=== PATIENT | male | born 1945 | race Caucasian/White ===

== ENCOUNTER → 2017-12-24 12:38 | Outpatient (CLI) | payer MEDICARE, SELFPAY | PROVIDERS: Referring Provider Internal Medicine Cardiovascular Disease; Visit Provider Internal Medicine Cardiovascular Disease | DX: R00.2 Palpitations (principal); I49.49 Other premature depolarization; I49.1 Atrial premature depolarization; I49.3 Ventricular premature depolarization; R94.31 Abnormal electrocardiogram [ECG] [EKG] | CPT/HCPCS: 93225; 93226 ==

== ENCOUNTER → 2018-04-28 07:00 | Outpatient (CLI) | payer MEDICARE, SELFPAY ==
[2018-04-28 10:48] LABS: ALB/GLOB Ratio 1.2 RATIO (0.9-2.4); AST(SGOT) 28 U/L (15-37); Alanine Aminotransfer ALT/SGPT 34 U/L (16-61); Albumin, Serum 4.2 g/dL (3.2-5.0); Alkaline Phosphatase 71 U/L (45-117); Anion Gap 6 (5-15); BUN 16 mg/dL (7-18); BUN/Creat Ratio 13.1 RATIO (10-20); Calcium,Total 9.1 mg/dL (8.5-10.1); Chloride 105 mmol/L (98-107); Cholesterol 145 mg/dL (200); Creatinine, Serum 1.22 mg/dL (0.70-1.30); EST Glomerular Filtration Rate 62 mL/min (>60); Est Glom Filt Rate - Afr Amer 75 mL/min (>60); Globulin 3.5 g/dL (2.2-4.2); Glucose 85 mg/dL (74-106); High Density Lipoprotein 47 mg/dL; PSA,Total- Diagnostic 3.03 ng/mL (0.0-4.0); Potassium 4.5 mmol/L (3.5-5.1); Protein, Total 7.7 g/dL (6.4-8.2); Sodium Level 141 mmol/L (136-145); Triglycerides 98 mg/dL; Very Low Density Lipoprotein 20 mg/dL (5-40)
== END ==
PROVIDERS: Family Provider Family Medicine; PCP Family Medicine; Referring Provider Family Medicine; Visit Provider Family Medicine
DX: E78.5 Hyperlipidemia, unspecified (principal); R97.20 Elevated prostate specific antigen [PSA]
CPT/HCPCS: 36415; 80053; 80061; 84153

== ENCOUNTER → 2018-12-10 09:13 | Outpatient (CLI) | payer MEDICARE, SELFPAY ==
[2018-06-14 09:39] VITALS: BMI 27.5
--- NOTE | 2018-12-10 08:45 | LES_PTH ---
PATIENT: MAO VAZQUEZ Jr. LOC: [facility] U#:[id number] AGE/SX: 79/M ROOM: RE12/10/[address]: Dr. Juan Nesbitt MD : 1945 BED: DIS: SPEC #: [id number] RECD: 12/10/18 09:58 STATUS: ROSANA KAYLYN #: [id number] HILARIA: 12/10/18 08:[address]: Juan Nesbitt DEPT: SURGICAL PATHOLOGY RECD BY: Leoncio Ramos ENTERED: 12/10/18 11:23 SP TYPE: Lesion OTHR DR: Dr. Eliud Gray MD Tissues: Skin of nose, NOS Procedures: Surgery Specimen Level IV HEADER OPERATION: Shave biopsy nose, left PRE-OP DIAGNOSIS: ? Basal cell carcinoma TISSUE SUBMITTED: Suspicious skin lesion MICROSCOPIC DIAGNOSIS Skin lesion of nose, shave biopsy: Basal cell carcinoma. See comment. AM:edward 12/13/18 COMMENT The lesion measures approximately 2 millimeters in greatest dimension and extends to the deep margin of excision. Case has been reviewed in consultation with Dr. Hyman who concurs with the above diagnosis. IDC:SJ MICROSCOPIC DESCRIPTION Slides are reviewed. GROSS DESCRIPTION Received in fixative is one container labeled with the patient's name and designated left nose. The specimen consists of a shave biopsy of jade-white skin measuring 0.6 x 0.4 x 0.1 cm. The specimen is inked and submitted entirely in one cassette. It will be bisected at the time of embedding. / SJ:rg 12/10/18 TC:0 CPT: 35650
== END ==
PROVIDERS: Family Provider Family Medicine; PCP Family Medicine; Visit Provider Family Medicine
DX: C44.311 Basal cell carcinoma of skin of nose (principal)
CPT/HCPCS: 88305

== ENCOUNTER → 2019-05-06 | Outpatient (CLI) | payer MEDICARE, SELFPAY ==
[2018-06-14 09:39] VITALS: BMI 27.5
[2019-05-06 13:12] LABS: ALB/GLOB Ratio 1.1 RATIO (0.9-2.4); AST(SGOT) 27 U/L (15-37); Alanine Aminotransfer ALT/SGPT 33 U/L (16-61); Albumin, Serum 3.9 g/dL (3.2-5.0); Alkaline Phosphatase 83 U/L (45-117); Anion Gap 5 (5-15); BUN 18 mg/dL (7-18); BUN/Creat Ratio 16.5 RATIO (10-20); Calcium,Total 8.7 mg/dL (8.5-10.1); Chloride 104 mmol/L (98-107); Cholesterol 145 mg/dL (200); Creatinine, Serum 1.09 mg/dL (0.70-1.30); EST Glomerular Filtration Rate 71 mL/min (>60); Est Glom Filt Rate - Afr Amer 85 mL/min (>60); Globulin 3.5 g/dL (2.2-4.2); Glucose 80 mg/dL (74-106); High Density Lipoprotein 39 mg/dL; PSA,Total - Annual Screen 3.97 ng/mL (0.00-4.00); Potassium 3.9 mmol/L (3.5-5.1); Protein, Total 7.4 g/dL (6.4-8.2); Sodium Level 139 mmol/L (136-145); Triglycerides 110 mg/dL; Very Low Density Lipoprotein 22 mg/dL (5-40)
== END | disposition home or self-care (01) ==
LOC: MFPLAB 11:00
PROVIDERS: PCP Family Medicine; Referring Provider Family Medicine; Visit Provider Family Medicine
DX: E78.5 Hyperlipidemia, unspecified (principal); R68.82 Decreased libido; R97.20 Elevated prostate specific antigen [PSA]; Z12.5 Encounter for screening for malignant neoplasm of prostate
CPT/HCPCS: 36415; 80053; 80061; 84153; 84403; G0103

== ENCOUNTER → 2020-05-09 08:01 | Outpatient (CLI) | payer MEDICARE, SELFPAY ==
[2019-11-17 10:04] VITALS: BMI 26.9
[2020-05-09 10:25] LABS: Erythrocyte Sedimentation Rate 2 mm/hr (0-20)
[2020-05-09 10:38] LABS: Vitamin D,25 Hydroxy 61.6 ng/mL
[2020-05-09 10:56] LABS: ALB/GLOB Ratio 1.2 RATIO (0.9-2.4); AST(SGOT) 26 U/L (15-37); Alanine Aminotransfer ALT/SGPT 30 U/L (16-61); Alkaline Phosphatase 75 U/L (45-117); Anion Gap 7 (5-15); BUN 21 mg/dL (7-18); BUN/Creat Ratio 17.8 RATIO (10-20); CRP < 2.90 mg/L (0.0-3.0); Calcium,Total 9.1 mg/dL (8.5-10.1); Chloride 106 mmol/L (98-107); Cholesterol 164 mg/dL (200); Creatinine, Serum 1.18 mg/dL (0.70-1.30); EST Glomerular Filtration Rate 64 mL/min (>60); Est Glom Filt Rate - Afr Amer 78 mL/min (>60); Globulin 3.4 g/dL (2.2-4.2); Glucose 85 mg/dL (74-106); High Density Lipoprotein 51 mg/dL; PSA,Total- Diagnostic 4.02 ng/mL (0.0-4.0); Potassium 4.5 mmol/L (3.5-5.1); Protein, Total 7.4 g/dL (6.4-8.2); Rheumatoid Factor < 10.0 IU/mL (<15); Sodium Level 140 mmol/L (136-145); Thyroid Stim Hormone (TSH) 0.72 uIU/mL (0.358-3.74); Triglycerides 87 mg/dL; Uric Acid 6.6 mg/dL (3.5-7.2); Very Low Density Lipoprotein 17 mg/dL (5-40)
[2020-05-10 15:33] LABS: ANTINUCLEAR ANTIBODIES DIRECT Negative (Negative)
== END ==
PROVIDERS: PCP Family Medicine; Referring Provider Family Medicine; Visit Provider Family Medicine
DX: E78.5 Hyperlipidemia, unspecified (principal); M19.90 Unspecified osteoarthritis, unspecified site; R97.20 Elevated prostate specific antigen [PSA]
CPT/HCPCS: 36415; 80053; 80061; 82306; 84153; 84443; 84550; 85652; 86038; 86140; 86431

== ENCOUNTER → 2020-11-08 08:14 | Outpatient (CLI) | payer MEDICARE, SELFPAY ==
[2020-11-09 12:36] LABS: PSA, Free 1.02 ng/mL; PSA, Free % 26.2 % (.); PSA, Total Ultrasensitive 3.9 ng/mL (0.0-4.0)
== END ==
PROVIDERS: PCP Family Medicine; Referring Provider Family Medicine; Visit Provider Family Medicine
DX: R97.20 Elevated prostate specific antigen [PSA] (principal)
CPT/HCPCS: 36415; 84153; 84154

== ENCOUNTER → 2021-01-02 17:47 | Outpatient (CLI) | payer MEDICARE, SELFPAY ==
[2021-01-02 18:24] LABS: Color, Urine Yellow (Yellow); Glucose, Dipstick Normal (Normal); Ketone-Dipstick Negative (Negative); Leukocyte Esterase-Dipstick 500 /ul (Negative); Nitrite-Dipstick Negative (Negative); Occult Blood-Urine 10 /ul (Negative); Protein-Dipstick 15 mg/dl (Negative); Urine Bilirubin Dipstick Negative (Negative); Urine Clarity Sl. Cloudy (Clear); Urine Urobilinogen Normal (Normal)
== END ==
PROVIDERS: PCP Family Medicine; Visit Provider Family Medicine
DX: R31.9 Hematuria, unspecified (principal)
CPT/HCPCS: 81002; 87077; 87086; 87088; 87186

== ENCOUNTER 2021-05-09 09:05 | Outpatient (CLI) | payer MEDICARE, SELFPAY ==
[2021-05-09 10:46] LABS: Anion Gap 6 (5-15); BUN 16 mg/dL (7-18); BUN/Creat Ratio 15.1 RATIO (10-20); Calcium,Total 9.3 mg/dL (8.5-10.1); Chloride 105 mmol/L (98-107); Cholesterol 147 mg/dL (200); Creatinine, Serum 1.06 mg/dL (0.70-1.30); EST Glomerular Filtration Rate 72 mL/min (>60); Est Glom Filt Rate - Afr Amer 88 mL/min (>60); Glucose 96 mg/dL (74-106); High Density Lipoprotein 41 mg/dL; Potassium 4.1 mmol/L (3.5-5.1); Sodium Level 140 mmol/L (136-145); Triglycerides 96 mg/dL; Very Low Density Lipoprotein 19 mg/dL (5-40)
[2021-05-11 10:32] LABS: PSA, Free 1.89 ng/mL; PSA, Free % 32.6 % (.); PSA, Total 5.8 ng/mL (0.0-4.0)
== END 2021-05-09 23:59 | disposition home or self-care (01) ==
PROVIDERS: PCP Family Medicine; Referring Provider Family Medicine; Visit Provider Family Medicine
DX: R97.20 Elevated prostate specific antigen [PSA] (principal); E78.5 Hyperlipidemia, unspecified
CPT/HCPCS: 36415; 80048; 80061; 84153

== ENCOUNTER → 2021-08-09 | Outpatient (CLI) | payer MEDICARE, SELFPAY ==
[2021-08-11 15:18] LABS: PSA, Free 1.21 ng/mL; PSA, Free % 31.8 % (.); PSA, Total Ultrasensitive 3.8 ng/mL (0.0-4.0)
== END | disposition home or self-care (01) ==
LOC: MFPLAB 08:04
PROVIDERS: PCP Family Medicine; Visit Provider Family Medicine
DX: R97.20 Elevated prostate specific antigen [PSA] (principal)
CPT/HCPCS: 36415; 84153; 84154

== ENCOUNTER → 2022-05-22 | Outpatient (CLI) | payer MEDICARE, SELFPAY ==
[2022-05-22 12:44] LABS: ALB/GLOB Ratio 1.2 RATIO (0.9-2.4); AST(SGOT) 26 U/L (15-37); Alanine Aminotransfer ALT/SGPT 28 U/L (16-61); Albumin, Serum 3.9 g/dL (3.2-5.0); Alkaline Phosphatase 77 U/L (45-117); Anion Gap 2 (5-15); BUN 14 mg/dL (7-18); BUN/Creat Ratio 14.5 RATIO (10-20); Calcium,Total 9.1 mg/dL (8.5-10.1); Chloride 103 mmol/L (98-107); Cholesterol 143 mg/dL (200); Creatinine, Serum 0.96 mg/dL (0.70-1.30); EST Glomerular Filtration Rate 81 mL/min (>60); Est Glom Filt Rate - Afr Amer 98 mL/min (>60); Globulin 3.3 g/dL (2.2-4.2); Glucose 87 mg/dL (74-106); High Density Lipoprotein 41 mg/dL; PSA,Total- Diagnostic 4.53 ng/mL (0.0-4.0); Potassium 3.9 mmol/L (3.5-5.1); Protein, Total 7.2 g/dL (6.4-8.2); Sodium Level 136 mmol/L (136-145); Triglycerides 97 mg/dL; Very Low Density Lipoprotein 19 mg/dL (5-40)
== END | disposition home or self-care (01) ==
LOC: MFPLAB 10:52
PROVIDERS: PCP Family Medicine; Referring Provider Family Medicine; Visit Provider Family Medicine
DX: E78.5 Hyperlipidemia, unspecified (principal); R97.20 Elevated prostate specific antigen [PSA]
CPT/HCPCS: 36415; 80053; 80061; 84153

== ENCOUNTER → 2022-10-30 | Outpatient (CLI) | payer MEDICARE, SELFPAY ==
--- NOTE | 2022-10-30 10:30 | ECHOD_ITS ---
Reason For Study: CENTRAL SLEEP APNEA Procedure This was a 2D Doppler, Color Flow transthoracic echocardiogram. Exam performed in department. Left Ventricle Normal left ventricle. Left ventricular systolic function is normal. The estimated ejection fraction is 55 %. Stage 1 diastolic dysfunction. No regional wall motion abnormalities noted. Right Ventricle Normal RV size. Normal systolic function. Atria Normal left atrium. Normal right atrium. Mitral Valve Normal mitral valve. Tricuspid Valve Normal tricuspid valve. Mild tricuspid valve insufficiency. Pulmonary artery systolic pressure is 24 mmHg. Aortic Valve Trisinus/trileaflet aortic valve. Trivial aortic valve insufficiency. Pulmonic Valve Normal pulmonic valve. Great Vessels Normal aortic root. The pulmonary artery is normal size. Normal inferior vena cava. Pericardium/Pleural No pericardial effusion. MMode/2D Measurements & Calculations LVIDd: 4.7 cm IVSd: 0.91 cm Ao root diam: 3.5 cm LVIDs: 3.5 cm LVPWd: 1.3 cm RVDd: 3.7 cm FS: 25.0 % LAV(MOD-bp): 52.3 ml LVAd ap4: 35.3 cm2 LVAd ap2: 24.6 cm2 LAV(MOD-bp) Indexed: 27.6 ml/m2 LVLd ap4: 8.3 cm LVLd ap2: 8.2 cm LAV(MOD-sp2): 52.4 ml EDV(MOD-sp4): 124.2 ml EDV(MOD-sp2): 64.9 ml LAV(MOD-sp4): 41.7 ml EDV(sp4-el): 127.6 ml EDV(sp2-el): 62.6 ml LVAs ap4: 20.5 cm2 LVAs ap2: 13.9 cm2 LVLs ap4: 7.2 cm LVLs ap2: 6.6 cm ESV(MOD-sp4): 51.5 ml ESV(MOD-sp2): 25.0 ml ESV(sp4-el): 49.5 ml ESV(sp2-el): 24.7 ml EF(MOD-sp4): 58.6 % EF(MOD-sp2): 61.6 % EF(sp4-el): 61.2 % SV(MOD-sp4): 72.7 ml SV(MOD-sp2): 40.0 ml SV(sp4-el): 78.1 ml LA dimension(2D): 4.2 cm LA A4 area: 15.3 cm2 RA A4 area: 15.0 cm2 TAPSE: 3.0 cm Time Measurements MV dec time: 0.28 sec Doppler Measurements & Calculations MV E max helder: 39.6 cm/sec Lat Peak E' Helder: 5.5 cm/sec Med Peak E' Helder: 9.3 cm/sec MV A max helder: 73.1 cm/sec E/E' lat: 7.2 E/E' med: 4.3 MV E/A: 0.54 Ao V2 max: 120.6 cm/sec AI max helder: 399.9 cm/sec LV V1 max: 102.5 cm/sec Ao max P.8 mmHg AI max P.0 mmHg LV V1 max P.2 mmHg Ao V2 mean: 84.4 cm/sec AI dec slope: 235.8 cm/sec2 LV V1 mean P.2 mmHg Ao mean P.2 mmHg AI P1/2t: 496.8 msec LV V1 mean: 71.5 cm/sec Ao V2 VTI: 26.6 cm LV V1 VTI: 21.0 cm AV (velocity ratio): 0.79 PA V2 max: 101.8 cm/sec TR max helder: 228.2 cm/sec PA V2 mean: 70.3 cm/sec TR max P.8 mmHg ECHO/Echo Complete Interpretation Summary Normal left ventricle. Left ventricular systolic function is normal. The estimated ejection fraction is 55 %. Stage 1 diastolic dysfunction. Pulmonary artery systolic pressure is 24 mmHg. Ordering Physician: Eliud Sousa V Referring Physician: Juan Nesbitt Performed By: Tabitha Croft RDCS, RVT
== END | disposition home or self-care (01) ==
LOC: CVS 10:29
PROVIDERS: PCP Family Medicine; Referring Provider Internal Medicine Pulmonary Disease; Visit Provider Internal Medicine Pulmonary Disease
DX: G47.33 Obstructive sleep apnea (adult) (pediatric) (principal); G47.37 Central sleep apnea in conditions classified elsewhere
CPT/HCPCS: 93306

== ENCOUNTER → 2022-12-01 | Outpatient (CLI) | payer MEDICARE, SELFPAY ==
--- NOTE | 2022-12-02 | IMM_PTH ---
PATIENT: MAO VAZQUEZ Jr. LOC: [facility] U#:[id number] AGE/SX: 77/M ROOM: RE12/01/[address]: Dr. Alin Márquez MD : 1945 BED: DIS: 12/01/2022 SPEC #: [id number] RECD: 12/03/22 13:41 STATUS: ROSANA REQ #: [id number] HILARIA: 12/02/22 00:[address]: Alin Márquez DEPT: IMMUNOHISTOCHEMISTRY RECD BY: Jewell Staton ENTERED: 12/03/22 13:42 SP TYPE: IMMUNO OTHR DR: Dr. Juan Nesbitt MD Tissues: D - PROSTATE LEFT Procedures: P40 (add) 34BE12 (initial) PHYSICIAN & INSTITUTION [place] [address] SPECIMEN INFORMATION: Tissue Source: D - Left prostate, apex, core biopsy Clinical Info: Elevated PSA Specimen Number: [id number] CPT code: 27394, 45100 METHODOLOGY: Deparaffinized sections of prefer/formalin-fixed tissue or PAP/DQ stained slides are incubated with monoclonal/polyclonal antibodies/oligonucleotide probes. Localization is made via biotin free immunoperoxidase method. Appropriate controls are performed and reacted as expected. Results on target cell population are indicated in the following table: RESULTS: ANTIBODY / CLONE RESULT Block D P40 (BC28) positive 34BE12 (34BE12) positive These tests were developed and their performance characteristics determined by [facility]. They may not have been cleared or approved by the U.S. Food and Drug Administration. The FDA has determined that such clearance or approval is not necessary. The above immunohistochemical/dualISH markers are ordered and reviewed by the Pathologist. INTERPRETATION: D. Left prostate, apex, core biopsy: Negative for malignancy. BABAK:edward 12/04/2022
--- NOTE | 2022-12-02 | PROSBIL_PTH ---
PATIENT: MAO VAZQUEZ Jr. LOC: [facility] U#:[id number] AGE/SX: 77/M ROOM: RE12/01/[address]: Dr. Alin Márquez MD : 1945 BED: DIS: 12/01/2022 SPEC #: [id number] RECD: 12/02/22 09:45 STATUS: ROSANA REJade #: [id number] HILARIA: 12/02/22 00:[address]: Alin Márquez DEPT: SURGICAL PATHOLOGY RECD BY: Shanelle Shahid ENTERED: 12/02/22 09:47 SP TYPE: PROST BX ALVERTO DR: Dr. Juan Nesbitt MD Tissues: A - PROSTATE RIGHT B - PROSTATE RIGHT C - PROSTATE RIGHT D - PROSTATE LEFT E - PROSTATE LEFT F - PROSTATE LEFT Procedures: PROSTATE BX HEADER OPERATION: Prostate biopsy PRE-OP DIAGNOSIS: Elevated PSA TISSUE SUBMITTED: A - Right apex, B - Right mid, C - Right base, D - Left apex, E - Left mid, F - Left base MICROSCOPIC DIAGNOSIS A. Right prostate, apex, core biopsy: Prostatic tissue, negative for malignancy. B. Right prostate, mid, core biopsy: Prostatic tissue, negative for malignancy. C. Right prostate, base, core biopsy: Focal high-grade prostatic intraepithelial neoplasia (HGPIN). D. Left prostate, apex, core biopsy: Prostatic tissue, negative for malignancy. See comment. E. Left prostate, mid, core biopsy: Prostatic tissue, negative for malignancy. F. Left prostate, base, core biopsy: Prostatic tissue, negative for malignancy. SJ:rg 12/03/2022 COMMENT D. Immunohistochemistry ([id number]) supports the above diagnosis. MICROSCOPIC DESCRIPTION Slides are reviewed. GROSS DESCRIPTION A - Received is one container designated prostate, right apex. The specimen consists of two elongated fragments of light jade-white soft tissue measuring 1.2 and 1.4 cm in length and 0.1 cm in diameter. The specimen is totally submitted in one cassette. B - Received is one container designated prostate, right mid. The specimen consists of two elongated fragments of light jade-white soft tissue each measuring 1.5 cm in length and 0.1 cm in diameter. The specimen is totally submitted in one cassette. C - Received is one container designated prostate, right base. The specimen consists of two elongated fragments of light jade-white soft tissue measuring 0.6 and 1.5 cm in length and 0.1 cm in diameter. The specimen is totally submitted in one cassette. D - Received is one container designated prostate, left apex. The specimen consists of two elongated fragments of light jade-white soft tissue measuring 1.0 and 2.0 cm in length and 0.1 cm in diameter. The specimen is totally submitted in one cassette. E - Received is one container designated prostate, left mid. The specimen consists of two elongated fragments of light jade-white soft tissue measuring 1.0 and 1.4 cm in length and 0.1 cm in diameter. The specimen is totally submitted in one cassette. F - Received is one container designated prostate, left base. The specimen consists of two elongated fragments of light jade-white soft tissue measuring 1.0 and 1.3 cm in length and 0.1 cm in diameter. The specimen is totally submitted in one cassette. / SJ:rg 12/02/2022 TC:5 CPT: G0146
== END | disposition home or self-care (01) ==
LOC: LABSPEC 12-02 09:11
PROVIDERS: PCP Family Medicine; Visit Provider Urology
DX: N42.31 Prostatic intraepithelial neoplasia (principal); R97.20 Elevated prostate specific antigen [PSA]
CPT/HCPCS: 88305; 88341; 88342; G0416

== ENCOUNTER → 2023-02-25 | Outpatient (CLI) | payer MEDICARE, SELFPAY ==
--- NOTE | 2023-02-25 08:50 | RAD_ITS ---
STUDY: X-RAY - CERVICAL SPINE REASON FOR EXAM: Male, 77 years old. Pain and paresthesias in right arm. TECHNIQUE: 5 view(s) of the cervical spine were obtained. COMPARISON: None FINDINGS: Osteopenia. Normal anterior atlantoaxial articulation. Normal odontoid process. Normal cervical lordosis. Diffuse moderate uncovertebral and facet sclerosis. 4 mm of anterolisthesis of C6 on C5. Intervertebral disc space narrowing at C5-6, C6-7 and C7-T1 with osteophyte formation most marked at C5-6 and C6-7. Anterior bony neural foraminal encroachment at C5-6 and C6-7 bilaterally. Normal soft tissues. RAD/Cerv Spine 4 or 5 Views IMPRESSION: Moderate lower cervical spondylosis as described. Electronically Signed: Eris Blas MD at 13:17 EST ,
== END | disposition home or self-care (01) ==
PROVIDERS: PCP Family Medicine; Referring Provider Family Medicine; Visit Provider Family Medicine
DX: M54.2 Cervicalgia (principal); R20.2 Paresthesia of skin
CPT/HCPCS: 72050

== ENCOUNTER 2023-03-19 13:00 | Outpatient (RCR) | payer MEDICARE, SELFPAY ==
--- NOTE | 2023-03-08 16:46 | HP.PTEVAL ---
Patient's Visit Information Visit Information Visit Information: MAO VAZQUEZ Jr. is a 77 year old M referred to Physical Therapy by Dr. Aamir Beavers MD with a diagnosis of CERVICALGIA AND R ARM PARESTHESIAS. Date of Evaluation: 03/06/23 Physical Therapist: Lilly Theodore PT, Cert MDT Visit Plan Frequency: 1-2x /Week Duration: 4-6 Weeks Plan: Scapular Strengthening and B Pec/UT/Levator/Scalene Stretching to help reduce stress on Cervical Spine with Daily Activities. US at 1.3 W/CM2 100% to R Neck Musculature in Sitting. Moist Heat to Neck as needed. Instruction in Proper Posture Control, Ergonomics with ADL's and Appropriate Activity Modifications. HEP Instructions. Subjective Subjective: Work/Leisure: RETIRED. [employer] WITH HABITAT. PHYSICAL WORK ABOUT 12 HOURS OR MORE A WEEK. WORKS OUT DAILY AT . Present symptoms: RIGHT NECK PAIN, RIGHT UPPER ARM AND SHLD PAIN. INTERMITTENT R FINGER NUMBNESS AND TINGLING OF ALL FINGERS. Present since: ABOUT 4 MONTHS AGO Pain Scale: Worst - 2/10 Least - 0/10 Currently: 0/10 Commenced as a result of: NO APPARENT REASON Symptoms at onset: R NECK PAIN Worse: LOOKING UP AND PAINTING. SITTING AT COMPUTER. CHANGING OUT A LIGHT FAN. R SDLY, GETTING UP FIRST THING IN THE MORNING, R UE PULL DOWN IN THE GYM ON SHAUN, R SHLD ER ON SHAUN. Better: STANDING UP, BEING UP AND MOVING, WORKING, WORKING OUT, TWO TYLONOL TAKE IT AWAY FOR AWHILE - A DAY OR TWO. Disturbed sleep: NOT SURE Previous history/Previous treatment: NO NECK SURGERY. NO CHIROPRACTIC. NO NECK INJECTIOINS. DOES HAVE HISTORY OF R SHLD ROTATOR CUFF INJURY WITHOUT SURGICAL REPAIR TREATED WITH PHYSICAL THERAPY AND GYM EX'S. Treatment this episode: NONE Dizziness: NO Tinnitus: YES - CHRONICE Nausea: NO Shortness of Breath: ONLY WITH RUNNING LONG DISTANCE Difficulty Swollowing: NO Gait: NORMAL Accidents: NO Unexplained weight loss: NO Imaging: PATIENT REPORTS HAVING A NECK X-RAY AND DR. BEAVERS TOLD HIM HE HAS A LITTLE BIT OF BONE DETERIATION FROM OLD AGE 102/25/23: NECK X-RAY RESULTS FROM [facility] EMR: STUDY: X-RAY - CERVICAL SPINE REASON FOR EXAM: Male, 77 years old. Pain and paresthesias in right arm. TECHNIQUE: 5 view(s) of the cervical spine were obtained. COMPARISON: None FINDINGS: Osteopenia. Normal anterior atlantoaxial articulation. Normal odontoid process. Normal cervical lordosis. Diffuse moderate uncovertebral and facet sclerosis. 4 mm of anterolisthesis of C6 on C5. Intervertebral disc space narrowing at C5-6, C6-7 and C7-T1 with osteophyte formation most marked at C5-6 and C6-7. Anterior bony neural foraminal encroachment at C5-6 and C6-7 bilaterally. Normal soft tissues. RAD/Cerv Spine 4 or 5 Views IMPRESSION: Moderate lower cervical spondylosis as described. PMH/Recent major surgery: HIGH CHOLESTEROL Objective Objective: Sitting Posture/Standing Posture: FH. RSH'S L>R. INCREASED KYPHOSIS. NO TORTICOLLIS Active Correction of posture: NE Other Observations: INDEP GAIT AND TRANSFERS. Sensory deficit: FELIX UE LIGHT TOUCH SENSATION GROSSLY INTACT AND SYMMETRICAL ROM deficit: FELIX UE ROM IS WFL Motor deficit: R SHLD FLEX 4/5, ABD 4/5, IR 4/5, ER 3+/5 ELBOW FLEX/EXT 5/5, WRIST FLEX/EXT 5/5. L SHLD FLEX 5/5, ABD 4/5, IR 5/5, ER 4/5 ELBOW FLEX/EXT 5/5, WRIST FLEX/EXT 5/5. Reflexes: 2/3 FELIX UE'S. Dural Signs: POSITIVE R UE Cervical Mvmt Loss: Flex: NIL Pro: NIL Ext: MOD Ret: MOD RSB: TERA LSB: MOD R Rot: MOD L Rot: MIN PATIENT C/O INCREASED R NECK PAIN WITH CERVICAL ROM TESTING INTO EXTENSION, R SG AND R ROT. PATIENT REPORTS DR. BEAVERS TAUGHT HIM TO USE A TOWEL TO SELF STRETCH INTO FELIX ROT AND HE HAS BEEN DOING THAT AND GAINING SOME ROM. Postural strength: GOOD. Palpation: NO ACUTE UPPER THORACIC, CERVICAL, OCCIPUT OR SHLD TENDERNESS EXCEPT AT THE insertion OF R SCM. TREATMENT: NEUROMUSCULAR REEDUCATION - RETRAINING OF MVMT AND POSTURE FOR SITTING AND STANDING ACTIVITIES INCLUDING USE OF COMPUTER. REVIEWED PROPER TECHNIQUE AND INTENSITY FOR CERVICAL ROTATION SELF STRETCHING AND MODIFICATION OF CURRENT GYM EX'S (90 DEG AND BELOW). INSTRUCTED IN AVOIDANCE OF PROVOKING NECK/SHLD PAIN AND PERIPHERALIZATION OF SX'S. Balance/Special Test Scores Quick DASH Score: 18.1800 Goals Goal 1:: DECREASE C/O NECK AND R UE PAIN AND PARASTHESIAS BY AT LEAST 80% Goal Time Frame: 4-6 Weeks Goal 2:: IMPROVE NECK ROM TO EASE ADL'S Goal Time Frame: 4-6 Weeks Goal 3:: IMPROVE R UE STRENGTH BY AT LEAST 1/2 MUSCLE GRADE OF ALL INVOLVED MUSCULATURE Goal Time Frame: 4-6 Weeks Goal 4:: PATIENT WILL DEMONSTRATED PROPER POSTURE CONTROL THROUGHOUT PT SESSION Goal Time Frame: 4-6 Weeks Goal 5:: PATIENT WILL BE INDEP WITH HEP/GYM PROGRAM FOR CONTINUED IMPROVEMENT Goal Time Frame: 4-6 Weeks Rehabilitation Potential Physical Therapy Diagnosis: THIS PATIENT PRESENTS TO PT WITH R NECK PAIN, NECK STIFFNESS, R SHLD PAIN, R ROTATOR CUFF WEAKNESS AND TINGLING IN R HAND. HE REPORTS INCREASED SYMPTOMS WITH LOOKING UP, REACHING UP WITH R UE AND SITTING AT THE COMPUTER. HE IS A GOOD CANDIDATE FOR PT. Rehabilitation Potential: Good Anticipated Interventions Patient/Client Instruction: Educate patient on: Condition, Plan of Care and Risk Factors For the Purpose of:: To improve self management Therapeutic Exercise to Include: Strength training, Body mechanics, Postural training, Flexibilty training, Neuromotor development and Scapular Strength/Stabilization For the Purpose of:: To decrease pain, To improve muscle performance and motor function, To increase tolerance to activity/condition/position, To improve ability of physical actions for home/community/work/leisure, To decrease soft tissue restriction and To increase flexibility/ROM Thermo therapy (hot pack): Yes Ultrasound (thermal/non thermal): Yes For the Purpose of:: To decrease pain and To improve nutrient delivery to tissue Text: Thank you for the opportunity to evaluate your patient. For Medicare and Medicare HMO plans, please review the plan of care and approve it. It will need to be FAXED BACK to us at [phone] for Medicare purposes. For Medicare only, by signing this I certify the plan of care. Please let me know if there are questions or concerns regarding this plan of care. Physician Signature: Date:
--- NOTE | 2023-05-18 19:19 | HP.PTDCNRP_ITS ---
Patient Information Patient Information: MAO VAZQUEZ Jr. was seen in my office for initial evaluation on 03/06/23. The following Plan of Care was established for this patient: POC Established Initial Frequency: 1-2x /Week Initial Duration: 4-6 Weeks Anticipated Interventions Patient/Client Instruction: Educate patient on: Condition, Plan of Care and Risk Factors For the Purpose of:: To improve self management Therapeutic Exercise to Include: Strength training, Body mechanics, Postural training, Flexibilty training, Neuromotor development and Scapular Strength/Stabilization For the Purpose of:: To decrease pain, To improve muscle performance and motor function, To increase tolerance to activity/condition/position, To improve ability of physical actions for home/community/work/leisure, To decrease soft tissue restriction and To increase flexibility/ROM Thermo therapy (hot pack): Yes Ultrasound (thermal/non thermal): Yes For the Purpose of:: To decrease pain and To improve nutrient delivery to tissue Last Seen Last Seen: This patient was last seen in our office 03/19/23. Pertinent comments regarding their Physical therapy will appear below: This patient has not returned to Physical Therapy and is appropriate to return to MD for further follow-up as needed. At this point I will be discontinuing this patient from physical therapy. I wou ld be happy to see this patient again in the future if found appropriate by the physician. Thank you! Lilly Theodore, PT, Cert MDT Balance/Gait/Functional tests Balance/Special Test Scores Quick DASH Score: 18.1800
== END 2023-03-19 19:00 | disposition home or self-care (01) ==
LOC: PT 13:00
PROVIDERS: PCP Family Medicine; Referring Provider Family Medicine; Visit Provider Family Medicine
DX: M54.2 Cervicalgia (principal); R20.0 Anesthesia of skin
CPT/HCPCS: 97162; 97530

== ENCOUNTER → 2023-05-26 | Outpatient (CLI) | payer MEDICARE, SELFPAY ==
[2023-05-26 13:09] LABS: ALB/GLOB Ratio 1.3 RATIO (0.9-2.4); AST(SGOT) 32 U/L (15-37); Alanine Aminotransfer ALT/SGPT 28 U/L (16-61); Alkaline Phosphatase 72 U/L (45-117); Anion Gap 4 (5-15); BUN 19 mg/dL (7-18); BUN/Creat Ratio 16.1 RATIO (10-20); Chloride 105 mmol/L (98-107); Cholesterol 144 mg/dL (200); Creatinine, Serum 1.18 mg/dL (0.70-1.30); EST Glomerular Filtration Rate 64 mL/min (>60); Est Glom Filt Rate - Afr Amer 77 mL/min (>60); Globulin 3.1 g/dL (2.2-4.2); Glucose 94 mg/dL (74-106); High Density Lipoprotein 43 mg/dL; PSA,Total- Diagnostic 7.86 ng/mL (0.0-4.0); Potassium 4.1 mmol/L (3.5-5.1); Protein, Total 7.1 g/dL (6.4-8.2); Sodium Level 139 mmol/L (136-145); Triglycerides 73 mg/dL; Very Low Density Lipoprotein 15 mg/dL (5-40)
== END | disposition home or self-care (01) ==
LOC: MFPLAB 09:26
PROVIDERS: PCP Family Medicine; Visit Provider Family Medicine
DX: Z00.00 Encounter for general adult medical examination without abnormal findings (principal); E78.5 Hyperlipidemia, unspecified; R97.20 Elevated prostate specific antigen [PSA]
CPT/HCPCS: 36415; 80053; 80061; 84153

== ENCOUNTER → 2023-06-15 | Outpatient (CLI) | payer MEDICARE, SELFPAY | END | disposition home or self-care (01) | LOC: LABSPEC 10:32 | PROVIDERS: PCP Family Medicine; Referring Provider Nurse Practitioner Family; Visit Provider Nurse Practitioner Family | DX: N39.0 Urinary tract infection, site not specified (principal) | CPT/HCPCS: 87077; 87086; 87088; 87186 ==

== ENCOUNTER → 2023-10-23 | Outpatient (CLI) | payer MEDICARE, SELFPAY | END | disposition home or self-care (01) | PROVIDERS: PCP Family Medicine; Visit Provider Nurse Practitioner | DX: R97.20 Elevated prostate specific antigen [PSA] (principal) | CPT/HCPCS: 36415; 84153 ==

== ENCOUNTER → 2023-11-05 | Outpatient (CLI) | payer MEDICARE, SELFPAY ==
--- NOTE | 2023-11-05 | IMM_PTH ---
PATIENT: MAO VAZQUEZ Jr. LOC: [facility] U#:[id number] AGE/SX: 78/M ROOM: RE11/05/[address]: Dr. Alin Márquez MD : 1945 BED: DIS: 11/05/2023 SPEC #: [id number] RECD: 11/09/23 10:42 STATUS: ROSANA REQ #: [id number] HILARIA: 11/05/23 00:[address]: Alin Márquze DEPT: IMMUNOHISTOCHEMISTRY RECD BY: Param Fang ENTERED: 11/09/23 10:43 SP TYPE: IMMUNO OTHR DR: Dr. Juan Nesbitt MD Tissues: B - PROSTATE RIGHT C - PROSTATE RIGHT D - PROSTATE LEFT F - PROSTATE LEFT Procedures: 34BE12 (add) P40 (add) P40 (initial) PHYSICIAN & INSTITUTION [place] [id number] SPECIMEN INFORMATION: Tissue Source: B- Right mid, C- Right base, D- Left apex, F- Left bas Clinical Info: Elevated PSA Specimen Number: [id number] B, C, D, F CPT code: 14930,69220p3 METHODOLOGY: Deparaffinized sections of prefer/formalin-fixed tissue or PAP/DQ stained slides are incubated with monoclonal/polyclonal antibodies/oligonucleotide probes. Localization is made via biotin free immunoperoxidase method. Appropriate controls are performed and reacted as expected. Results on target cell population are indicated in the following table: RESULTS: ANTIBODY / CLONE RESULT Block B P40 (BC28) positive 34BE12 (34BE12) positive Block C P40 (BC28) positive 34BE12 (34BE12) positive Block D P40 (BC28) positive 34BE12 (34BE12) positive Block F P40 (BC28) positive 34BE12 (34BE12) positive These tests were developed and their performance characteristics determined by [facility]. They may not have been cleared or approved by the U.S. Food and Drug Administration. The FDA has determined that such clearance or approval is not necessary. The above immunohistochemical/dualISH markers are ordered and reviewed by the Pathologist. INTERPRETATION: B. Prostate, right mid, core biopsy: Benign prostatic tissue. C. Prostate, right base, core biopsy: Benign prostatic tissue. D. Prostate, left apex, core biopsy: Benign prostatic tissue. F. Prostate, left base, core biopsy: Benign prostatic tissue. 11/10/2023
--- NOTE | 2023-11-05 | PROSBIL_PTH ---
PATIENT: MAO VAZQUEZ Jr. LOC: [facility] U#:[id number] AGE/SX: 78/M ROOM: RE11/05/[address]: Dr. Alin Márquez MD : 1945 BED: DIS: 11/05/2023 SPEC #: [id number] RECD: 11/06/23 11:43 STATUS: ROSANA REQ #: [id number] HILARIA: 11/05/23 00:[address]: Alin Márquez DEPT: SURGICAL PATHOLOGY RECD BY: Luis Alfredo Ball ENTERED: 11/06/23 11:43 SP TYPE: PROST BX ALVERTO DR: Dr. Juan Nesbitt MD Tissues: A - PROSTATE RIGHT B - PROSTATE RIGHT C - PROSTATE RIGHT D - PROSTATE LEFT E - PROSTATE LEFT F - PROSTATE LEFT Procedures: PROSTATE BX HEADER OPERATION: Prostate biopsy PRE-OP DIAGNOSIS: Elevated PSA TISSUE SUBMITTED: A - Right apex, B - Right mid, C - Right base, D - Left apex, E - Left mid, F - Left base MICROSCOPIC DIAGNOSIS A. Right prostate, apex, core biopsy: Chronic prostatitis. Glandular atrophy. B. Right prostate, mid, core biopsy: Chronic prostatitis. Glandular atrophy. See comment. C. Right prostate, base, core biopsy: Chronic prostatitis. Glandular atrophy. See comment. D. Left prostate, apex, core biopsy: Chronic prostatitis. Glandular atrophy. See comment. E. Left prostate, mid, core biopsy: Chronic prostatitis. Glandular atrophy. F. Left prostate, base, core biopsy: Chronic prostatitis. Glandular atrophy. See comment. Sosa 11/09/2023 COMMENT B, C, D, F. Immunohistochemistry ([id number]) supports the above diagnosis. MICROSCOPIC DESCRIPTION Slides are reviewed. GROSS DESCRIPTION A - Received is one container designated prostate, right apex. The specimen consists of two elongated fragments of light jade-white soft tissue each measuring 1.5 cm in length and 0.1 cm in diameter. The specimen is totally submitted in one cassette. B - Received is one container designated prostate, right mid. The specimen consists of two elongated fragments of light jade-white soft tissue each measuring 2.0 cm in length and 0.1 cm in diameter. The specimen is totally submitted in one cassette. C - Received is one container designated prostate, right base. The specimen consists of two elongated fragments of light jade-white soft tissue each measuring 1.7 cm in length and 0.1 cm in diameter. The specimen is totally submitted in one cassette. D - Received is one container designated prostate, left apex. The specimen consists of two elongated fragments of light jade-white soft tissue each measuring 1.2 cm in length and 0.1 cm in diameter. The specimen is totally submitted in one cassette. E - Received is one container designated prostate, left mid. The specimen consists of two elongated fragments of light jade-white soft tissue each measuring 1.9 cm in length and 0.1 cm in diameter. The specimen is totally submitted in one cassette. F - Received is one container designated prostate, left base. The specimen consists of two elongated fragments of light jade-white soft tissue measuring 0.8 and 1.5 cm in length and 0.1 cm in diameter. The specimen is totally submitted in one cassette. / SJ.mr 11/06/2023 TC:3 CPT: G0146
== END | disposition home or self-care (01) ==
LOC: LABSPEC 15:16
PROVIDERS: PCP Family Medicine; Referring Provider Urology; Visit Provider Urology
DX: R97.20 Elevated prostate specific antigen [PSA] (principal)
CPT/HCPCS: 88305; 88341; 88342; G0416

== ENCOUNTER → 2024-01-14 | Outpatient (CLI) | payer MEDICARE, SELFPAY ==
[2024-01-14 12:05] LABS: Hematocrit 45.8 % (40-54); Hemoglobin 15.7 g/dL (13.0-16.5); Mean Corp Hgb Conc 34.3 g/dL (32-36); Mean Corpuscular Hgb 30.5 pg (27.0-32.0); Mean Corpuscular Volume 89.1 fL (80-94); Mean Platelet Vol. 9.8 fl (6.2-12.0); Platelet Count 203 K/mm3 (150-450); RBC Distribution Width CV 13.2 % (11.6-14.6); RBC Distribution Width SD 42.6 fl (35.1-43.9); Red Blood Count 5.14 M/mm3 (4.6-6.2); White Blood Count 4.1 K/mm3 (4.4-11.0)
[2024-01-14 12:42] LABS: Ferritin 101 ng/mL (26-388); Iron 114 ug/dL (65-175)
== END | disposition home or self-care (01) ==
LOC: MFPLAB 09:43
PROVIDERS: PCP Family Medicine; Visit Provider Family Medicine
DX: R53.83 Other fatigue (principal)
CPT/HCPCS: 36415; 82728; 83540; 85027

== ENCOUNTER 2024-03-17 07:54 | Day surgery (SDC) | payer MEDICARE, SELFPAY ==
--- NOTE | 2024-03-03 17:26 | PAT.ANESEVAL ---
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 When Was Last Pacemaker Check QUESTION #4 FULL TEXT: You/Your Family Experience fever (hyperthermia) with Anesthesia Last Oral Intake Last Oral intake: Last Oral Intake NPO since Meds taken in AM with sips of water? Meds patient instructed to take am of surgery PONV PONV - stoker installation mechanic: PONV - stoker installation mechanic Female No 03/03/24 12:58 HX of Motion Sickness No 03/03/24 12:58 HX of N/V After Surgery No 03/03/24 12:58 Non-Smoker Yes 03/03/24 12:58 Duration of Surgery greater Yes 03/03/24 12:58 than 60 minutes Number of Risk Factors 2 03/03/24 12:58 PONV Score Moderate Risk 03/03/24 12:58 Height & Weight Height & Weight: Anesthesia: Height & Weight Height 5 ft 9 in 02/22/24 09:33 Respiratory Assessment Respiratory Assessment - stoker installation mechanic: Respiratory Tract Infection Hx - stoker installation mechanic Hx Respiratory Tract Infection No 03/03/24 12:58 STOP Sleep Apnea STOP Sleep Apnea - stoker installation mechanic: STOP Sleep Apnea - stoker installation mechanic Hx Hypertension No 03/03/24 12:58 Hx Sleep Apnea Yes 03/03/24 12:58 CPAP No 03/03/24 12:58 BIPAP Yes 03/03/24 12:58 Do you snore loudly (louder No 03/03/24 12:58 than talking or can be heard Do you often feel tired/ No 03/03/24 12:58 fatigued/ sleepy during daytime? Has anyone observed you stop No 03/03/24 12:58 breathing during sleep? STOP Results Positive 03/03/24 12:58 QUESTION #5 FULL TEXT : Do you snore loudly (louder than talking or can be heard through closed doors)? 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 Specify any problems Hx of Preganancy in last 3 N/A 03/03/24 12:58 Months Nurse Filling Out Transfusion DSCHRIBER 03/03/24 12:58 & Questions: Date: 03/03/24 03/03/24 12:58 Time: 12:59 03/03/24 12:58 Patient unable to answer at this time (ie. confused, unrespo /Reproduction History /Reproductive History - stoker installation mechanic: /Reproductive Hx- stoker installation mechanic Hx Now No 03/03/24 12:58 Gestational Age (in weeks): EDC: Hx Hx Para Hx Section SAB No 03/03/24 12:58 PFSH Medical History (Updated 03/03/24 @ 13:09 by Breann Luna) Wears glasses Alcohol use Arthritis Prostate disease High cholesterol History of hiatal hernia Gastric reflux Former smoker BiPAP (biphasic positive airway pressure) dependence Leg cramps History of echocardiogram Cardiology follow-up encounter History of irregular heartbeat History of deviated nasal septum Pure hypercholesterolemia Ectopic cardiac beats Palpitations Encounter for long-term current use of high risk medication Sinoatrial node dysfunction Abnormal electrocardiogram Contraction, premature ventricular Atrial contractions, premature Hyperlipidemia Home Medications ?Medication ?Instructions ?Recorded ?Last Taken ?Type cholecalciferol (vitamin D3) 50 2,000 unit PO BID 05/28/17 Unknown History mcg (2,000 unit) tablet simvastatin 20 mg tablet See Rx Instructions .Route .COMPLEX 05/28/17 Unknown History lactobacillus combination no.9 4 4,000 mmu cells PO DAILY 06/14/18 Unknown History billion cell capsule (Adult 50 Plus Probiotic) omega-3 fatty acids 1,000 mg 1,000 mg PO DAILY 06/14/18 Unknown History capsule (Fish Oil Concentrate) coenzyme Q10 100 mg capsule 400 mg PO DAILY 06/27/19 Unknown History multivitamin 1 tab PO QAM 11/15/20 Unknown History finasteride 5 mg tablet 5 mg PO QDAY 02/22/24 Unknown History omeprazole magnesium 20 mg 20 mg PO QDAY PRN GERD 02/22/24 Unknown History tablet,delayed release (Prilosec OTC) tamsulosin 0.4 mg capsule 0.4 mg PO QHS 02/22/24 Unknown History trazodone 50 mg tablet 50 mg PO QHS 03/03/24 Unknown History Allergy/AdvReac Type Severity Reaction Status Date / Time codeine AdvReac Intermediate Itching,eye Verified 03/03/24 12:51 burning Family History Father Arthritis Mother CAD (coronary artery disease) Diabetes Hypertension Hyperlipidemia Brother CAD (coronary artery disease) Brother Diabetes Brother Hyperlipidemia Brother Hypertension Surgical History (Updated 03/03/24 @ 13:09 by Breann Luna) Hx of colonoscopy History of vasectomy Social History Smoking Status: Former smoker how long ago did patient quit smokin alcohol intake: current alcohol intake frequency: a few times a month substance use type: does not use caffeine: No what type of physical activity do you participate in: other details: REHAPP seatbelt use: always do you feel safe at home: Yes Audit: Pertinent Findings Pertinent Findings EKG Perinent findings: November 17, 2019. Sinus rhythm. Frequent ectopic ventricular beats. Right bundle branch block. Echo (EF%) pertinent findings: October 30, 2022. Ejection fraction 55%. Pulmonary artery systolic pressure is 24 mmHg. No aortic stenosis noted. Consult pertinent findings: December 16, 2021 Dr. Dill. 1. Palpitations-this is chronic. At present patient appears to be doing well with no ongoing symptoms or adverse events. 2. Ectopic cardiac beats-this is chronic with ectopy of PACs and PVCs. Doing well at this time. Recommendation Anesthesia Recommendation Anesthesia recommendation: OPTIMIZED for anesthesia
[2024-03-17] VITALS (10 sets, daily range): BP systolic 129–149; BP diastolic 77–91; PULSE 58–70; RESP 14–16; TEMP 36.2–36.6; O2SAT 93–100; BMI 27.1
--- NOTE | 2024-03-17 08:03 | EKG12_ITS ---
Test Reason : PREOP Blood Pressure : */* mmHG Vent. Rate : 62 BPM Atrial Rate : 62 BPM P-R Int : 176 ms QRS Dur : 138 ms QT Int : 448 ms P-R-T Axes : 28 -2 -16 degrees QTcB Int : 454 ms Normal sinus rhythm Right bundle branch block Abnormal ECG No previous ECGs available Confirmed by RUBEN PICKARD, SHAMA ([id number]), publication editor CARMEN CUNNINGHAM ([id number]) on 03/19/2024 8:09:04 AM Referred By: Jimenez Waldron Confirmed By: SHAMA MIRANDA MD
--- NOTE | 2024-03-17 08:38 | PCM.PRE.AN2 ---
ASA Classification* ASA Classification ASA Classification: 3 Assessment & Plan Anesthesia* Anesthesia Assessment Anesthesia Assessment: Discussed sedation and/or anesthesia options, risks, benefits, and alternatives with patient/parents/legal guardian/POA. Questions invited. The patient/parents/legal guardian/POA seems to understand and agrees to proceed with anesthesia plan. Reviewed the physical assessment, medical history, allergy history and patient home medications list prior to surgery/procedure/anesthetic and documented any changes. Performed airway and anesthesia risk assessments. Anesthesia Type Anesthesia Type: General History Source History Obtained from:: Patient and Chart Anesthesia Focused Assessment* Temperature: 97.9 F Pulse Rate: 67 Blood Pressure: 129/78 Respiratory Rate: 16 Pulse Ox: 100 Oxygen Delivery Method: Room Air Airway Assessment Mouth opens: >3 cm Mallampati Score: II Teeth Condition: Caps/Crowns (Lower back gold caps) and Missing (Missing lower back molars) Neck Range of motion (ROM): Full ROM Focused Labs Anesthesia Preop lab: CBC WBC 4.1 K/mm3 (4.4-11.0) L 01/14/24 09:45 01/14/24 RBC 5.14 M/mm3 (4.6-6.2) 01/14/24 09:45 01/14/24 Hgb 15.7 g/dL (13.0-16.5) 01/14/24 09:45 01/14/24 Hct 45.8 % (40-54) 01/14/24 09:45 01/14/24 Plt Count 203 K/mm3 (150-450) 01/14/24 09:45 01/14/24 CHEMISTRY Potassium 4.1 mmol/L (3.5-5.1) 05/26/23 09:28 05/26/23 Sodium 139 mmol/L (136-145) 05/26/23 09:28 05/26/23 Magnesium 2.0 mg/dL (1.8-2.4) 04/27/14 12:13 04/27/14 BUN 19 mg/dL (7-18) H 05/26/23 09:28 05/26/23 Creatinine 1.18 mg/dL (0.70-1.30) 05/26/23 09:28 05/26/23 Glucose 94 mg/dL (74-106) 05/26/23 09:28 05/26/23 TSH 0.72 uIU/mL (0.358-3.74) 05/09/20 08:02 05/09/20 COAG Pre-Assessment Diagnosis/Proposed Procedure Planned Operative Procedure(s): LAP ROBOTIC LEFT INGUINAL HERNIA REPAIR WITH MESH Anesthesia History 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 When Was Last Pacemaker Check QUESTION #4 FULL TEXT: You/Your Family Experience fever (hyperthermia) with Anesthesia Last Oral Intake Last Oral intake: Last Oral Intake NPO since 06:00 03/17/24 08:29 Meds taken in AM with sips of water? Meds patient instructed to take am of surgery PONV PONV - project manager senior: PONV - project manager senior Female No 03/03/24 12:58 HX of Motion Sickness No 03/03/24 12:58 HX of N/V After Surgery No 03/03/24 12:58 Non-Smoker Yes 03/03/24 12:58 Duration of Surgery greater Yes 03/03/24 12:58 than 60 minutes Number of Risk Factors 2 03/03/24 12:58 PONV Score Moderate Risk 03/03/24 12:58 Height & Weight Height & Weight: Anesthesia: Height & Weight Height 5 ft 9 in 03/17/24 08:29 Weight: 83.461 kg 03/17/24 08:29 Body Mass Index (BMI) 27.1 03/17/24 08:29 Respiratory Assessment Respiratory Assessment - project manager senior: Respiratory Tract Infection Hx - project manager senior Hx Respiratory Tract Infection No 03/03/24 12:58 STOP Sleep Apnea STOP Sleep Apnea - project manager senior: STOP Sleep Apnea - project manager senior Hx Hypertension No 03/03/24 12:58 Hx Sleep Apnea Yes 03/03/24 12:58 CPAP No 03/03/24 12:58 BIPAP Yes 03/03/24 12:58 Do you snore loudly (louder No 03/03/24 12:58 than talking or can be heard Do you often feel tired/ No 03/03/24 12:58 fatigued/ sleepy during daytime? Has anyone observed you stop No 03/03/24 12:58 breathing during sleep? STOP Results Positive 03/03/24 12:58 QUESTION #5 FULL TEXT : Do you snore loudly (louder than talking or can be heard through closed doors)? 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 Specify any problems Hx of Preganancy in last 3 N/A 03/03/24 12:58 Months Nurse Filling Out Transfusion DSCHRIBER 03/03/24 12:58 & Questions: Date: 03/03/24 03/03/24 12:58 Time: 12:59 03/03/24 12:58 Patient unable to answer at this time (ie. confused, unrespo /Reproduction History /Reproductive History - project manager senior: /Reproductive Hx- project manager senior Hx Now No 03/03/24 12:58 Gestational Age (in weeks): EDC: Hx Hx Para Hx Section SAB No 03/03/24 12:58 Active Medications Active Medications: Current Medications Generic Name Dose Route Start Last Admin Trade Name Freq PRN Reason Stop Dose Admin Cefazolin Sodium 2 gm/ N/A 20 mls @ 400 mls/hr 03/17/24 09:35 IV 03/17/24 09:37 PREOP ONE Sodium Chloride 1,000 mls @ 15 mls/hr 03/17/24 08:05 IV 03/22/24 21:24 .Q48H [facility] Protocol PFSH Medical History Wears glasses Alcohol use Arthritis Prostate disease High cholesterol History of hiatal hernia Gastric reflux Former smoker BiPAP (biphasic positive airway pressure) dependence Leg cramps History of echocardiogram Cardiology follow-up encounter History of irregular heartbeat History of deviated nasal septum Pure hypercholesterolemia Ectopic cardiac beats Palpitations Encounter for long-term current use of high risk medication Sinoatrial node dysfunction Abnormal electrocardiogram Contraction, premature ventricular Atrial contractions, premature Hyperlipidemia Home Medications ?Medication ?Instructions ?Recorded ?Last Taken ?Type cholecalciferol (vitamin D3) 50 2,000 unit PO BID 05/28/17 Unknown History mcg (2,000 unit) tablet simvastatin 20 mg tablet See Rx Instructions .Route .COMPLEX 05/28/17 Unknown History lactobacillus combination no.9 4 4,000 mmu cells PO DAILY 06/14/18 Unknown History billion cell capsule (Adult 50 Plus Probiotic) omega-3 fatty acids 1,000 mg 1,000 mg PO DAILY 06/14/18 03/16/24 History capsule (Fish Oil Concentrate) coenzyme Q10 100 mg capsule 400 mg PO DAILY 06/27/19 Unknown History multivitamin 1 tab PO QAM 11/15/20 Unknown History finasteride 5 mg tablet 5 mg PO QDAY 02/22/24 03/17/24 History omeprazole magnesium 20 mg 20 mg PO QDAY PRN GERD 02/22/24 03/17/24 History tablet,delayed release (Prilosec OTC) tamsulosin 0.4 mg capsule 0.4 mg PO QHS 02/22/24 03/16/24 History trazodone 50 mg tablet 50 mg PO QHS 03/03/24 Unknown History Allergy/AdvReac Type Severity Reaction Status Date / Time codeine AdvReac Intermediate Itching,eye Verified 03/17/24 08:27 burning Family History Father Arthritis Mother CAD (coronary artery disease) Diabetes Hypertension Hyperlipidemia Brother CAD (coronary artery disease) Brother Diabetes Brother Hyperlipidemia Brother Hypertension Surgical History (Updated 03/03/24 @ 13:09 by Breann Luna) Hx of colonoscopy History of vasectomy Social History Smoking Status: Former smoker how long ago did patient quit smokin alcohol intake: current alcohol intake frequency: a few times a month substance use type: does not use caffeine: No what type of physical activity do you participate in: other details: [employer]ost[employer] seatbelt use: always do you feel safe at home: Yes Review of Systems (Anesthesia) ROS Narrative System reviewed and no additional complaints, except as documented.
[2024-03-17] MEDS: 0.9% Normal Saline (1000mL) 1,000 ML 15 ML IV (08:41)
--- NOTE | 2024-03-17 08:41 | PCM.HP.BLA ---
History and Physical Date of Admission: 03/17/24 Intake Vital Signs 06/12/2408:25 02/22/2508:33 Height 5 ft 9 in 5 ft 9 in Weight: 188 lb BMI 27.7 BP 115/79 Blood Pressure Location Rt brachial Position Sitting Respiration 17 Pulse 73 Pulse Source Monitor Pulse Oximetry (%) 95 Oxygen Delivery Method room air Intake Visit Reasons: INGUINAL HERNIA Chief Complaint: inguinal hernia Is patient in pain?: No Allergies codeine Adverse Reaction (Intermediate, Verified 02/22/24 09:33) Itching,eye burning Medications ?Medication ?Instructions ?Recorded ?Confirmed ?Type cholecalciferol (vitamin D3) 50 2,000 unit PO BID 05/28/17 02/22/24 History mcg (2,000 unit) tablet simvastatin 20 mg tablet See Rx Instructions .Route .COMPLEX 05/28/17 02/22/24 History lactobacillus combination no.9 4 4,000 mmu cells PO DAILY 06/14/18 02/22/24 History billion cell capsule (Adult 50 Plus Probiotic) omega-3 fatty acids 1,000 mg 1,000 mg PO DAILY 06/14/18 02/22/24 History capsule (Fish Oil Concentrate) coenzyme Q10 100 mg capsule 400 mg PO DAILY 06/27/19 02/22/24 History multivitamin 1 tab PO QAM 11/15/20 02/22/24 History finasteride 5 mg tablet 5 mg PO QDAY 02/22/24 02/22/24 History omeprazole magnesium 20 mg 20 mg PO QDAY 02/22/24 02/22/24 History tablet,delayed release (Prilosec OTC) tamsulosin 0.4 mg capsule 0.4 mg PO QDAY 02/22/24 02/22/24 History Have you fallen in the past year?: No PFSH Medical History (Updated 02/22/24 @ 09:[address] Jimenez Waldron MD) GERD (gastroesophageal reflux disease) Deviated nasal septum Pure hypercholesterolemia Ectopic cardiac beats Palpitations Encounter for long-term current use of high risk medication Sinoatrial node dysfunction Abnormal electrocardiogram Contraction, premature ventricular Atrial contractions, premature Hyperlipidemia Surgical History (Updated 02/22/24 @ 09:32 by Kailee Rushing) H/O straightening of nasal septum History of vasectomy Family History Father ArthritisMother CAD (coronary artery disease) Diabetes Hypertension HyperlipidemiaBrother CAD (coronary artery disease)Brother DiabetesBrother HyperlipidemiaBrother Hypertension Social History Smoking Status: Former smoker how long ago did patient quit smokin alcohol intake: current alcohol intake frequency: a few times a month substance use type: does not use caffeine: No what type of physical activity do you participate in: other details: VISENZE seatbelt use: always do you feel safe at home: Yes HPI HPI HPI: Patient is a 78-year-old male here with left inguinal hernia. He says has been out for a few weeks to a month. He says it fong and is uncomfortable especially when he does any lifting or strenuous activity. He is a very active individual who exercises a lot. ROS General General: No weight change, appetite, fatigue, colon cancer, breast cancer or weakness HEENT HEENT: No difficulty swallowing, eye injury, eye surgery, swollen glands or hoarseness Endo Endocrine: No thyroid disease, diabetes mellitus, thyroid cancer, Hair loss, heat intolerance or cold intolerance Skin Skin: No rash or changing moles Musc Musculoskeletal: Yes arthritis; No back problems, rheumatoid arthritis, gout or joint pain Cardio Cardiovascular: No murmur, pacemaker, heart disease, atrial fibrillation, high blood pressure, heart attack, heart stent, palpitations, shortness of breat with exertion or chest pain Psych Psychiatric: No depression, anxiety or hearing voices Resp Respiratory: No shortness of breath, Yes sleep apnea, No cough, No COPD, No asthma, No emphysema and No wheezing Gastro Gastrointestinal: Yes abdominal pain, No nausea or vomiting, No diarrhea, No constipation, No blood in stool, Yes acid reflux, No hemorrhoids, No ulcers, No gallbladder problem and No black,tarry stools Kennedy Hematologic: No blood thinners, No blood disorders, No bleeding, No anemia and No blood clots Neuro Neurologic: No system reviewed and no additional complaints, except as documented, No as per HPI, No abnormal gait, No abnormal hearing, No abnormal movements, No abnormal speech, No behavioral changes, No burning sensations, No confusion, No convulsions, No disequilibrium, No dizziness, No localized weakness, No frequent falls, No headache(s), No lack of coordination, No loss of vision, No memory loss, Yes numbness, No other visual disturbances, No radicular pain, No restless legs, No sensory deficit, No syncope, Yes tingling, No tremor(s), No weakness and No other Exam Const General: cooperative Orientation: alert and oriented x3 HENMT Head: normal to inspection Neck Neck: normal visual inspection and full ROM Chest Chest palpation & inspection: normal inspection of the chest Resp Effort & Inspection: normal respiratory effort Auscultation: clear to auscultation bilaterally Cardio Rate: regular rate Rhythm: regular rhythm GI Inspection: non-distended Palpation: soft, hernia indirect inguinal on the left and nontender Skin General: no rashes or lesions noted Neuro General: patient alert and patient oriented x3 Extrem General: full ROM Psych Appearance: grossly normal Mental Status: mental status grossly normal Assessment and Plan Assessment and Plan (1) Inguinal hernia: Status: Acute Qualifiers: Obstruction and gangrene presence: without obstruction or gangrene Laterality: unilateral Recurrence: non-recurrent Qualified Code(s): K40.90 - Unilateral inguinal hernia, without obstruction or gangrene, not specified as recurrent Plan: The patient has a left inguinal hernia which is reducible. I discussed robotic assisted laparoscopic inguinal hernia repair with mesh. I discussed the procedure in detail as well as the risks including but not limited to bleeding, infection, injury other organs. I discussed this with him in detail and he is agreeable to proceed. Jimenez Waldron MD Pager: [facility] [address] [place] [address], [address] [place] [address] Office: I have examined the patient and the H&P has been reviewed. There are no clinical changes since date of exam.
[2024-03-17] MEDS: Cefazolin 2 GM in Syringe IV (10:00)
[2024-03-17] MEDS: Bupivacaine Mpf 0.5% 30 ML VIAL (11:02)
--- NOTE | 2024-03-17 11:15 | OP.PCM_ITS ---
Operative Report (Standard) Operative Information Date of Procedure: 03/17/24 Pre-Operative Diagnosis: Left inguinal hernia Post-Operative Diagnosis: Left inguinal hernia Surgery/Procedure Performed: Robotic assisted laparoscopic left inguinal hernia repair with mesh train operations supervisor: Yes Automobile Radiator Mechanic: Ivette Kirby Tasks completed by executive administrative assistant: Opening and Closing Type of Anesthesia: General/Regional RN Documented Start/Stop Times: Operation Date: 03/17/24 09:35 Case Time Into Pre-Op 03/17/24 08:00 Out of Pre-Op 03/17/24 09:59 Anesthesia Start 03/17/24 10:00 Into Room 03/17/24 10:00 Procedure Start 03/17/24 10:22 Procedure End 03/17/24 11:06 Anesthesia End 03/17/24 11:11 Out of Room 03/17/24 11:11 Procedure Start Time: 10:22 Procedure Stop Time: 11:06 Select all DRAINS/GRAFTS/IMPLANTS that apply: Implanted device Implanted device details: ProGrip mesh Estimated Blood Loss: 10 Specimen collected: No Description of surgery: Patient is brought back to the operating room and general anesthesia was induced. The abdomen was prepped and draped in usual sterile fashion. A midline incision was made superior to the umbilicus and the fascia was grasped with a Sole clamp and elevated and a Veress needle was placed into the abdomen and a drop test was performed. The abdomen was then insufflated to 15 mmHg and the Veress needle was removed. A port was placed into the abdomen and the camera was placed into the abdomen and it was inspected for injuries from entry and there were none. Patient was placed in Trendelenburg position. The patient an indirect left inguinal hernia. Under direct visualization an 8 mm port was placed in the right lateral sidewall as well as the left lateral abdominal sidewall. The robot was then docked. Using electrocautery scissors an incision was made in the peritoneum in the left lower quadrant. Dissection was carried inferiorly until the hernia sac was identified and dissected free and reduced. Next ProGrip mesh was placed over the hernia defect and unfolded completely covering the defect. The peritoneum was then reapproximated using a running 3 OV lock suture completely covering the mesh. The abdomen was allowed to desufflate and the instruments and ports were removed. The incisions were injected with local anesthetic and closed with interrupted 4-0 Monocryl sutures. Steri-Strips and bandages were applied. Scrotum was checked in the case contained both testicles. Patient was awoken and taken to PACU in stable condition and tolerated the procedure well. Surgical Findings: Indirect hernia on the left side Complications Complications: No Admit VTE Documentation VTE Mechan Device Prophylaxis: SCD's
--- NOTE | 2024-03-17 11:17 | PCM.POST.ANE ---
Anesthesia: Postop Eval I Current Vital Signs Temperature: 97.3 F Pulse Rate: 70 Blood Pressure: 149/83 Respiratory Rate: 16 Pulse Ox: 96 Assessment Airway patent: Yes Spontaneous unlabored respirations: Yes Mental status: Awake and Calm nausea: No Vomiting: No Anesthesia Complication: Yes Anesthesia Complication Comment:: none Fluid Hydration Crystalloid volume administer (ml): 700 Total IV fluid infused: 700 Progress Note Anesthesia document: Postop Eval 1 completed: No
--- NOTE | 2024-03-17 11:19 | DCINST_ITS ---
Discharge Instructions Procedure Hernia Diet Discharge Diet: Light diet - advance as tolerated Activity Discharge Activity: May Not Drive (for 2-3 days or while taking narcotic pain meds.) and May Shower (with the bandage in place 1-2 days after surgery.) Lifting Restrictions: 20 pounds for 4 weeks. Additional Activity Instructions:: Climbing stairs is fine, walking is encouraged. Sitting in bed may be uncomfortable. Sitting up using your lateral muscles (sitting up sideways) is usually more comfortable. Do not drive, work heavy equipment of sign legal documents for 24 hours. If your hernia repair was an inguinal repair, you may have scrotal swelling, an ice pack and/or athletic support can provide more comfort. Pain medications may cause nausea, you should typically eat light foods as you take your pain medications. Pain medications may also cause constipation. If you have difficulty with this, discuss with your doctor. Alternate ibuprofen and Tylenol for pain control, oxycodone for breakthrough pain. Dressing / Incision Call your doctor if your incision/area has: Continuous Slow Oozing, Sudden Increased Bleeding, Increased Pain/ Swelling, Increased Redness and Foul Smelling Discharge Call your doctor if you observe: Fever of 101 or Higher Suture Line Care: Avoid Pulling/Pushing and Avoid Pinching/Bending Remove Dressing in: 2 days (Remove clear bandages in 2 days, remove Steri-Strips in 7 to 10 days.) Cleanse incision/area with: Soap & Water Follow Up Care Please Follow Up With: Jimenez Waldron MD When: Please call to schedule 2 week follow up appointment. [phone] Test Results: Test results from this visit will be discussed in further detail at your follow- up appointment, if applicable. Discharge Plan Admission Attending Provider: Jimenez Waldron Primary Care Provider: Juan Nesbitt Instructions Print Language: [place] Discharge Orders/Prescriptions Prescriptions: New oxycodone 5 mg Tablet 5 - 10 mg PO Q4H PRN PRN (Reason: Pain Score 4-10) 5 Days Qty: 10 0RF No Action simvastatin 20 mg tablet See Rx Instructions .ROUTE .COMPLEX Patient Comments: 1 tablet PO on even days & 2 Tabs PO on odd days Rx Instructions: 1 tablet PO on even days & 2 Tabs PO on odd days cholecalciferol (vitamin D3) 2,000 unit tablet 2,000 unit PO BID coenzyme Q10 100 mg capsule 400 mg PO DAILY omega-3 fatty acids [Fish Oil Concentrate] 1,000 mg capsule 1,000 mg PO DAILY Adult 50 Plus Probiotic 4 billion cell capsule 4,000 mmu cells PO DAILY multivitamin Tablet 1 tab PO QAM finasteride 5 mg tablet 5 mg PO QDAY tamsulosin 0.4 mg capsule 0.4 mg PO QHS omeprazole magnesium [Prilosec OTC] 20 mg tablet,delayed release (DR/EC) 20 mg PO QDAY PRN (Reason: GERD) trazodone 50 mg tablet 50 mg PO QHS Referrals / Follow Up: Juan Nesbitt MD [Primary Care Provider] - Disposition Disposition (needs filled in before D/C Order can be placed): Home, Self Care
--- NOTE | 2024-03-17 11:50 | POSTOPAN2_ITS ---
Anesthesia Postop Eval I Sum Postop Eval Completion status Anesthesia document: Postop Eval 1 completed: No Anesthesia Postop Eval I Summary Anesthesia Postop Eval I Summary: Anesthesia Postop Eval I: Assessment Summary Airway patent Yes 03/17/24 11:21 NURSE OFFICE.LMIL Spontaneous unlabored Yes 03/17/24 11:21 NURSE OFFICE.LMIL respirations Mental status Awake,Calm 03/17/24 11:21 NURSE OFFICE.LMIL nausea No 03/17/24 11:21 NURSE OFFICE.LMIL Vomiting No 03/17/24 11:21 NURSE OFFICE.LMIL Anesthesia Postop Eval I: Fluid Summary Crystalloid volume administer 700 03/17/24 11:21 NURSE OFFICE.LMIL (ml) Colloids volume administered ( ml) Blood Product volume administered (ml) Total IV fluid infused 700 03/17/24 11:21 NURSE OFFICE.LMIL Anesthesia Postop Eval I: Summary Notes Anesthesia Complication Yes 03/17/24 11:21 NURSE OFFICE.LMIL Anesthesia Complication none 03/17/24 11:21 NURSE OFFICE.LMIL Comment: Post-operative progress note Anesthesia: Postop Eval II Evaluation Mental status: Awake and Calm Pain Level: 3 nausea: No Vomiting: No
--- NOTE | 2024-03-17 11:50 | PCM.POSTANE2 ---
Anesthesia Postop Eval I Sum Postop Eval Completion status Anesthesia document: Postop Eval 1 completed: No Anesthesia Postop Eval I Summary Anesthesia Postop Eval I Summary: Anesthesia Postop Eval I: Assessment Summary Airway patent Yes 03/17/24 11:21 PSYCHOLOGICAL [employer]ENT.LMIL Spontaneous unlabored Yes 03/17/24 11:21 PSYCHOLOGICAL TEST[employer]ENT.LMIL respirations Mental status Awake,Calm 03/17/24 11:21 PSYCHOLOGICAL TEST[employer] AGENT.LMIL nausea No 03/17/24 11:21 PSYCHOLOGICAL TESTS SALES AGENT.LMIL Vomiting No 03/17/24 11:21 PSYCHOLOGICAL TESTS SALES AGENT.LMIL Anesthesia Postop Eval I: Fluid Summary Crystalloid volume administer 700 03/17/24 11:21 PSYCHOLOGICAL TESTS SALES AGENT.LMIL (ml) Colloids volume administered ( ml) Blood Product volume administered (ml) Total IV fluid infused 700 03/17/24 11:21 PSYCHOLOGICAL TESTS SALES AGENT.LMIL Anesthesia Postop Eval I: Summary Notes Anesthesia Complication Yes 03/17/24 11:21 PSYCHOLOGICAL TESTS SALES AGENT.LMIL Anesthesia Complication none 03/17/24 11:21 PSYCHOLOGICAL TEST[employer]ES AGENT.LMIL Comment: Post-operative progress note Anesthesia: Postop Eval II Evaluation Mental status: Awake and Calm Pain Level: 3 nausea: No Vomiting: No
== END 2024-03-17 13:35 | disposition home or self-care (01) ==
LOC: SDC 07:56 → AC 08:02
PROVIDERS: PCP Family Medicine; Referring Provider Surgery; Visit Provider Surgery
PROC: 0YQ64ZZ Repair Left Inguinal Region, Percutaneous Endoscopic Approach (ICD-10-PCS; CPT 49650; principal; 2024-03-17 09:15)
DX: K40.90 Unilateral inguinal hernia, without obstruction or gangrene, not specified as recurrent (principal); E78.00 Pure hypercholesterolemia, unspecified; Z87.891 Personal history of nicotine dependence; K21.9 Gastro-esophageal reflux disease without esophagitis
CPT/HCPCS: 49650; S2900; 00840; 93005; J2405

== ENCOUNTER → 2024-05-27 | Outpatient (CLI) | payer MEDICARE, SELFPAY ==
[2024-05-27 10:31] LABS: ALB/GLOB Ratio 1.6 RATIO (0.9-2.4); AST(SGOT) 26 U/L (<=37); Alanine Aminotransfer ALT/SGPT 22 U/L (<=46); Albumin, Serum 4.2 g/dL (3.4-4.8); Alkaline Phosphatase 86 U/L (40-129); Anion Gap 11 (5-15); BUN 16 mg/dL (4-19); BUN/Creat Ratio 14.7 RATIO (10-20); Calcium,Total 9.1 mg/dL (7.6-11.0); Carbon Dioxide 25.6 mmol/L (21.0-32.0); Chloride 102 mmol/L (98-108); Cholesterol 139 mg/dL (<=200); Creatinine, Serum 1.09 mg/dL (0.70-1.20); EST Glomerular Filtration Rate 70 (>60); Globulin 2.6 g/dL (2.2-4.2); Glucose 86 mg/dL (70-99); High Density Lipoprotein 39 mg/dL; Low Density Lipoprotein Calc. 80 mg/dL; Protein, Total 6.8 g/dL (5.9-8.4); Sodium Level 139 mmol/L (133-145); Total Bilirubin 0.76 mg/dL (0.00-1.30); Triglycerides 99 mg/dL; Very Low Density Lipoprotein 20 mg/dL (5-40); cholesterol:hdl ratio screen 3.55
== END | disposition home or self-care (01) ==
LOC: MTLAB 07:03
PROVIDERS: PCP Family Medicine; Referring Provider Family Medicine; Visit Provider Family Medicine
DX: E78.5 Hyperlipidemia, unspecified (principal)
CPT/HCPCS: 36415; 80053; 80061

== ENCOUNTER → 2024-12-05 | Outpatient (CLI) | payer MEDICARE, SELFPAY ==
[2024-12-05 12:59] LABS: PSA,Total- Diagnostic 2.29 ng/mL (0.00-4.00)
--- OUTSIDE RECORDS SUMMARY | 2024-12-05 14:02 | XMS RPT_ITS | CCD ---
Author Organization [facility] Care Team Providers Care Quotation Clerk Name Role Phone JASPAL SALMON Unavailable Unavailable JASPAL SALMON Unavailable Unavailable Dr. Aamir Nesbitt Primary Care Provider [phone] Dr. Tam Dennis Attending Provider Dr. Tam Dennis Referring Provider Dr. Juan Nesbitt Primary Care Provider [phone] Dr. Juan Nesbitt Referring Provider CASSIDY Gonzalez Attending Provider Laz PICKARD, Dr. Martinez Primary Care Provider Laz PICKARD, Dr. Martinez Referring Provider [phone] Chivo PICKARD, Dr. Gaona Attending Provider Chivo PICKARD, Dr. Gaona Referring Provider Sonny PICKARD, Dr. Turcios Attending Provider Chivo PICKARD, Dr. Gaona Other Provider [phone] Laz PICKARD, Dr. Martinez Attending Provider Juan Nesbitt Primary Care Unavailable Jimenez Waldron Attending Unavailable Juan Nesbitt Referring Unavailable Juan Nesbitt Primary Care Unavailable Jimenez Waldron Attending Unavailable Jimenez Waldron Referring Unavailable Juan Nesbitt Primary Care Unavailable Alin Márquez Attending Unavailable Alin Márquez Referring Unavailable Juan Nesbitt Primary Care Unavailable Le Abel Attending Unavailable Usha Gonzalez Attending Unavailable Usha Gonzalez Referring Unavailable Juan Nesbitt Primary Care Unavailable Juan Nesbitt Primary Care Unavailable Juan Nesbitt Attending Unavailable Juan Nesbitt Primary Care Unavailable Juan Nesbitt Attending Unavailable Juan Nesbitt Referring Unavailable Jimenez Waldron Consulting Unavailable Juan Nesbitt Primary Care Unavailable Jimenez Waldron Attending Unavailable Jimenez Waldron Referring Unavailable Juan Nesbitt Primary Care Unavailable Tam Dennis Attending Unavailable Jimenez Waldron Referring Unavailable Juan Nesbitt Primary Care Unavailable Jimenez Waldron Attending Unavailable Juan Nesbitt Referring Unavailable Juan Nesbitt Referring Unavailable Usha Gonzalez Attending Unavailable Laz [facility] Unavailable Allergies Allergy Classification Reported Allergen(s) Allergy Type Date of Onset Reaction(s) Facility (8 sources) Codeine Drug Allergy 1 Itching,eye burning [facility] (1 source) Codeine Drug Allergy 5 [facility] Repository Medications Current Medications Medication Drug Class(es) Dates Sig (Normalized) Sig (Original) cholecalciferol 0.05 mg oral tablet (8 sources) Vitamin D Start: 05-28-2017 take 1 tablet by mouth twice daily Cholecalciferol (Vitamin D3) 2,000 unit tablet Active 2000 U PO TWICE A DAY May 28, 2017 12:00am finasteride 5 mg oral tablet (1 source) 5-alpha Reductase Inhibitor Start: 02-22-2024 take 1 tablet by mouth once daily Finasteride 5 mg tablet Active 5 mg PO daily February 22, 2024 1:00am Lactobacillus Combination No.9 (Adult 50+ Probiotic) 4 billion cell capsule (8 sources) Start: 06-14-2018 take 4 capsules by mouth once daily Lactobacillus Combination No.9 (Adult 50+ Probiotic) 4 billion cell capsule Active 4000 MMU CELLS PO DAILY June 14, 2018 9:42am Start: 06-14-2018 take 4 capsules by m outh once daily Lactobacillus Combination No.9 (Adult 50+ Probiotic) 4 billion cell capsule Active 4000 NMA PO DAILY June 14, 2018 12:00am Start: 06-14-2018 take 4 capsules by m outh once daily Lactobacillus Combination No.9 (Adult 50+ Probiotic) 4 billion cell capsule Active 4000 MMU CELLS PO DAILY June 13, 2018 11:00pm Start: 06-14-2018 take 4 capsules by m outh once daily Lactobacillus Combination No.9 (Adult 50+ Probiotic) 4 billion cell capsule Active 4000 MMU CELLS PO DAILY June 14, 2018 12:00am Multivitamin preparation (7 sources) Start: 11-15-2020 take 1 tablet by mouth once daily in the morning Multivitamin Active 1 TABLET PO EVERY MORNING November 15, 2020 10:32am Start: 11-15-2020 take 1 tablet by adiel th once daily in the morning Multivitamin Active 1 TABLET PO EVERY MORNING November 14, 2020 11:00pm Start: 11-15-2020 take 1 tablet by adiel th once daily in the morning Multivitamin Active 1 TABLET PO EVERY MORNING November 15, 2020 12:00am Multivitamin tablet (1 source) Start: 11-15-2020 Multivitamin t ablet Active 1 {tbl} PO EVERY MORNING November 15, 2020 12:00am [place]-3 Fatty Acids (Fish Oil Concentrate) 1,000 mg capsule (8 sources) Start: 06-14-2018 take 1 capsule by mouth once daily [place]-3 Fatty Acids (Fish Oil Concentrate) 1,000 mg capsule Active 1000 MG PO DAILY June 14, 2018 9:41am Start: 06-14-2018 take 1 capsule by [facility] once daily [place]-3 Fatty Acids (Fish Oil Concentrate) 1,000 mg capsule Active 1000 mg PO DAILY June 14, 2018 12:00am Start: 06-14-2018 take 1 capsule by mo [facility] once daily [place]-3 Fatty Acids (Fish Oil Concentrate) 1,000 mg capsule Active 1000 MG PO DAILY June 13, 2018 11:00pm Start: 06-14-2018 take 1 capsule by mo [facility] once daily [place]-3 Fatty Acids (Fish Oil Concentrate) 1,000 mg capsule Active 1000 MG PO DAILY June 14, 2018 12:00am omeprazole 20 mg delayed release oral tablet (1 source) Proton Pump Inhibitor Start: 02-22-2024 take 1 tablet by mouth once daily as needed for gastroesophageal reflux disease Omeprazole Magnesium (Prilosec Otc) 20 mg tablet,delayed release (DR/EC) Active 20 mg PO daily as needed for GERD February 22, 2024 1:00am simvastatin 20 mg oral tablet (8 sources) HMG-CoA Reductase Inhibitor Start: 05-28-2017 take 1 tablet by mouth once daily, then take 2 tablets by mouth once daily Simvastatin 20 mg tablet Active 0 .ROUTE .COMPLEX May 28, 2017 12:00am 1 tablet PO on even days & 2 Tabs PO on odd days tamsulosin hydrochloride 0.4 mg oral capsule (1 source) alpha-Adrenerg ic Semaj Start: 02-22-2024 take 1 capsule by mouth at bedtime Tamsulosin 0.4 mg capsule Active 0.4 mg PO AT BEDTIME February 22, 2024 1:00am traZODone hydrochloride 50 mg oral tablet (1 source) Serotonin Reuptake Inhibitor Start: 03-03-2024 take 1 tablet by mouth at bedtime Trazodone 50 mg tablet Active 50 mg PO AT BEDTIME March 03, 2024 1:00am Turmeric Root Extract (8 sources) Start: 06-14-2018 take 500 mg by mouth once daily Turmeric Root Extract Active 500 MG PO DAILY June 14, 2018 9:42am Start: 06-14-2018 End: 12-16-2021 take 1 capsule by mouth once daily Turmeric Root Extract 500 mg capsule Discontinued 500 mg PO DAILY June 14, 2018 12:00am December 16, 2021 3:32pm Start: 06-14-2018 End: 12-16-2021 take 500 mg by mouth once daily Turmeric Root Extract Discontinued 500 MG PO DAILY June 13, 2018 11:00pm December 16, 2021 2:32pm Start: 06-14-2018 End: 12-16-2021 take 500 mg by mouth once daily Turmeric Root Extract Discontinued 500 MG PO DAILY June 14, 2018 12:00am December 16, 2021 3:32pm Start: 06-14-2018 take 500 mg by mouth once qing y Turmeric Root Extract Active 500 MG PO DAILY June 14, 2018 12:00am Turmeric Root Extract (5 sources) Start: 12-16-2021 take 500 mg by mouth twice daily Turmeric Root Extract Active 500 MG PO TWICE A DAY December 16, 2021 2:31pm Start: 12-16-2021 take 500 mg by mouth twice yuliya ly Turmeric Root Extract Active 500 MG PO TWICE A DAY December 16, 2021 3:31pm ubidecarenone 100 mg oral capsule (20 sources) Start: 06-27-2019 take 10 capsules by mouth once daily Coenzyme Q10 100 mg capsule Active 400 mg PO DAILY June 27, 2019 9:47am Start: 06-02-2017 End: 06-27-2019 take 10 capsules by mouth twice daily Coenzyme Q10 100 mg capsule Discontinued 100 mg PO TWICE A DAY June 02, 2017 9:25am June 27, 2019 9:48am Start: 05-28-2017 End: 06-02-2017 take 10 capsules by mouth once daily Coenzyme Q10 100 mg capsule Discontinued 100 mg PO daily May 28, 2017 12:00am June 02, 2017 9:26am Completed/Discontinued Medications Medication Drug Class(es) Dates Sig (Normalized) Sig (Original) Antiarthritic Combination No.2 (Glucosamine-Chondro itin) 900 mg tablet (8 sources) Start: 06-27-2019 End: 11-17-2019 take 1 tablet by mouth once daily Antiarthritic Combination No.2 (Glucosamine-Chondr oitin) 900 mg tablet Discontinued 900 MG PO DAILY June 27, 2019 9:48am November 17, 2019 10:05am Start: 06-27-2019 End: 11-17-2019 take 1 tablet by mouth once daily Antiarthritic Combination No.2 (Glucosamine-Chondroitin) 900 mg tablet Discontinued 900 mg PO DAILY June 27, 2019 12:00am November 17, 2019 10:05am Start: 06-27-2019 End: 11-17-2019 take 1 tablet by mouth once daily Antiarthritic Combination No.2 (Glucosamine-Chondroitin) 900 mg tablet Discontinued 900 MG PO DAILY June 26, 2019 11:00pm November 17, 2019 9:05am Start: 06-27-2019 End: 11-17-2019 take 1 tablet by mouth once daily Antiarthritic Combination No.2 (Glucosamine-Chondroitin) 900 mg tablet Discontinued 900 MG PO DAILY June 27, 2019 12:00am November 17, 2019 10:05am ciprofloxacin 500 mg oral tablet (2 sources) Quinolone Antimicrobial Start: 06-13-2023 End: 06-23-2023 take 1 tablet by mouth twice daily Ciprofloxacin Hcl 500 mg tablet Discontinued 500 mg PO TWICE A DAY 28 11June 13, 2023 12:00am June 22, 2023 12:00am June 23, 2023 12:06am ferrous sulfate 325 mg oral tablet (16 sources) Start: 05-28-2017 End: 06-14-2018 take 1 tablet by mouth once daily as needed Ferrous Sulfate 325 mg (65 mg iron) tablet Discontinued 325 mg PO daily as needed June 02, 2017 9:25am June 14, 2018 9:42am Magnesium (16 sources) Start: 06-27-2019 End: 12-16-2021 Magnesium 250 mg tablet Discontinued 250 mg PO .[facility] June 27, 2019 9:48am December 16, 2021 3:30pm Start: 06-27-2019 End: 12-16-2021 Magnesium Discontinued 250 M G PO .[facility] June 27, 2019 8:48am December 16, 2021 2:30pm Start: 06-27-2019 End: 12-16-2021 Magnesium Discontinued 250 M G PO .[facility] June 27, 2019 9:48am December 16, 2021 3:30pm Start: 06-27-2019 Magnesium Acti ve 250 MG PO .[facility] June 27, 2019 9:48am Start: 06-14-2018 End: 06-27-2019 take 250 mg by mouth once daily Magnesium Discontinued 250 MG PO DAILY June 14, 2018 9:41am June 27, 2019 9:48am Start: 06-14-2018 End: 06-27-2019 take 1 tablet by mouth once daily Magnesium 250 mg tablet Discontinued 250 mg PO DAILY June 14, 2018 12:00am June 27, 2019 9:48am Start: 06-14-2018 End: 06-27-2019 take 250 mg by mouth once daily Magnesium Discontinued 250 MG PO DAILY June 13, 2018 11:00pm June 27, 2019 8:48am Start: 06-14-2018 End: 06-27-2019 take 250 mg by mouth once daily Magnesium Discontinued 250 MG PO DAILY June 14, 2018 12:00am June 27, 2019 9:48am oxyCODONE hydrochloride 5 mg oral tablet (1 source) Opioid Agonist Start: 03-17-2024 End: 03-31-2024 take 5-10 mg by mouth every four hours as needed for pain Oxycodone 5 mg Tablet Discontinued 5 - 10 mg PO EVERY 4 HOURS NEEDED as needed for Pain Score 4-10 10 5 March 17, 2024 March 31, 2024 10:37am potassium gluconate 2.35 meq oral tablet (8 sources) Start: 05-28-2017 End: 12-16-2021 take 3 tablets by mouth every week Potassium Gluconate 550 mg (90 mg) tablet Discontinued 0 .ROUTE .COMPLEX May 28, 2017 12:00am December 16, 2021 3:32pm 550 MG PO 3 X weekly Start: 05-28-2017 End: 12-16-2021 Potassium Gluconate Disconti nued 0 .ROUTE .COMPLEX May 28, 2017 12:00am December 16, 2021 3:32pm 550 MG PO 3 X weekly raNITIdine 150 mg oral tablet (8 sources) Histamine-2 Receptor Antagonist Start: 05-28-2017 End: 06-27-2019 take 1 tablet by mouth once daily as needed Ranitidine Hcl 150 mg tablet Discontinued 150 mg PO daily as needed May 28, 2017 12:00am June 27, 2019 9:48am Turmeric Root Extract 500 mg capsule (1 source) Start: 12-16-2021 End: 02-22-2024 take 1 capsule by mouth twice daily Turmeric Root Extract 500 mg capsule Discontinued 500 mg PO TWICE A DAY December 16, 2021 3:31pm February 22, 2024 10:34am Problems Active Problems Problem Classification Problem Date Documented Da te Episodic/Chronic Abdominal hernia (3 sources) Inguinal hernia; Translations: [Unilateral inguinal hernia, without obstruction or gangrene, not specified as recurrent] Onset: 03-21-2024 02-22-2024 Episodic Cardiac dysrhythmias (20 sources) Ectopic beats; Translations: [Other premature depolarization] 06-02-2017 Chronic Cardiac dysrhythmias (8 sources) Palpitations; Translations: [Palpitations] 05-28-2017 Episodic Disorders of lipid metabolism (19 sources) Mixed hyperlipidemia; Translations: [Pure hypercholesterolemi a] Onset: 04-23-2017 06-08-2018 Chronic Other aftercare (7 sources) Patient encounter status; Translations: [Other halfway (current) drug therapy] 06-02-2017 Episodic Other aftercare (1 source) Long-term current use of drug therapy; Translations: [Other halfway (current) drug therapy] 06-02-2017 Episodic Past or Other Problems Problem Classification Problem Date Documented Date Episodic/Chronic Genitourinary symptoms and ill-defined conditions (1 source) Dysuria; Translations: [Dysuria] Onset: 06-13-2023 Episodic Malaise and fatigue (1 source) Other fatigue; Translations: [Other fatigue] Onset: 02-12-2024 Episodic Other screening for suspected conditions (not mental disorders or infectious disease) (9 sources) Electrocardiogram abnormal; Translations: [Abnormal electrocardiogram [ECG] [EKG]] Onset: 12-03-2023 06-02-2017 Episodic Urinary tract infections (2 sources) Urinary tract infection, site not specified; Translations: [Urinary tract infection, site not specified] Onset: 06-21-2023 06-13-2023 Episodic Results Test Name Value Interpretation Reference Range Facility Anion gap in Serum or Plasma Ordered By: Juan Nesbitt on 05-27-2024 Anion gap [Moles/Vol] 11 mmol/L 5- [facility] BUN/creatinine ratioOrdered By: Juan Nesbitt on 05-27-2024 Urea nitrogen/Creatinine [Mass ratio] 14.7 mg/mg 10- [facility] Bilirubin, totalOrdered By: Juan Nesbitt on 05-27-2024 Bilirubin [Mass/Vol] 0.76 mg/dL 0.00-1.30 [facility] Calculated very low density lipoprotein (VLDL) cholesterol measurementOrdered By: Juan Nesbitt on 05-27-2024 VLDL Cholesterol 20 mg/dL 5- [facility] Carbon dioxide, total [Moles /volume] in Central venous bloodOrdered By: Juan Nesbitt on 05-27-2024 CO2 [Moles/Vol] 25.6 mmol/L 21.0-32.0 [facility] Chloride assayOrdered By: Shaista Nesbitt on 05-27-2024 Chloride [Moles/Vol] 102 mmol/L 98-108 [facility] Comprehensive Metabolic Prof ilon 05-27-2024 Albumin [Mass/Vol] 4.2 g/dL Normal 3.4-4.8 [facility] Comment on above: Order Comment: Order Date: 01/14/24 Order Info: [id number] - FE Order Info: [id number] - TRACE Performed By: #### L [id number], [id number], [id number] #### [facility] [address] [place], [address] Albumin/Globulin [Mass ratio] 1.6 {ratio} Normal 0.9-2.4 [facility] Comment on above: Order Comment: Order Date: 01/14/24 Order Info: 2497-05 Order Info: [id number] - TRACE Performed By: #### L [id number], [id number], [id number] #### [facility] [address] [place], [address] ALK PHOS 86 U/L Normal 40-129 [facility] Comment on above: Order Comment: Order Date: 01/14/24 Order Info: 2497-05 Order Info: [id number] - TRACE Performed By: #### L [id number], [id number], [id number] #### [facility] [address] [place], [address] ALT [Catalytic activity/Vol] 22 U/L Normal <=46 [facility] Comment on above: Order Comment: Order Date: 01/14/24 Order Info: 2497-05 Order Info: 2275-05 - TRACE Performed By: #### L 503.6150, [id number], [id number] #### [facility] [address] [place], [address] AST [Catalytic activity/Vol] 26 U/L Normal <=37 [facility] Comment on above: Order Comment: Order Date: 01/14/24 Order Info: 2497-05 Order Info: 2275-05 - TRACE Performed By: #### L [id number], [id number], [id number] #### [facility] [address] [place], [address] Bilirubin [Mass/Vol] 0.76 mg/dL Normal 0.00-1.30 [facility] Comment on above: Order Comment: Order Date: 01/14/24 Order Info: 2497-05 Order Info: 2275-05 - TRACE Performed By: #### L 503.6150, [id number], [id number] #### [facility] [address] [place], [address] BUN/CRE 14.7 RATIO Normal 10-20 [facility] Comment on above: Order Comment: Order Date: 01/14/24 Order Info: 2497-05 - Order Info: 2275-05 - TRACE Performed By: #### L 503.6150, [id number], [id number] #### [facility] [address] [place], [address] Calcium [Mass/Vol] 9.1 mg/dL Normal 7.6-11.0 [facility] Comment on above: Order Comment: Order Date: 01/14/24 Order Info: 2497-05 - Order Info: 2275-05 - TRACE Performed By: #### L 503.6150, [id number], [id number] #### [facility] [address] [place] [place], [address] Chloride [Moles/Vol] 102 mmol/L Normal 98-108 [facility] Comment on above: Order Comment: Order Date: 01/14/24 Order Info: 2497-05 - Order Info: 2275-05 - TRACE Performed By: #### L 503.6150, [id number], [id number] #### [facility] [address] [place], [address] CO2 [Moles/Vol] 25.6 mmol/L Normal 21.0-32.0 [facility] Comment on above: Order Comment: Order Date: 01/14/24 Order Info: 2497-05 - Order Info: 2275-05 - TRACE Performed By: #### L 503.6150, [id number], [id number] #### [facility] [address] [place], [address] Creatinine [Mass/Vol] 1.09 mg/dL Normal 0.70-1.20 [facility] Comment on above: Order Comment: Order Date: 01/14/24 Order Info: 2497-05 - FE Order Info: 2275-05 - TRACE Performed By: #### L 503.6150, [id number], [id number] #### [facility] [address] [place], [address] GAP 11 Normal 5-15 [facility] Comment on above: Order Comment: Order Date: 01/14/24 Order Info: 2497-05 - Order Info: 2275-05 - TRACE Performed By: #### L 503.6150, [id number], [id number] #### [facility] [address] [place], [address] GFR/1.73 sq M.predicted among non-blacks MDRD (S/P/Bld) [Vol rate/Area] 70 mL/min/{1.73_m2} Normal >60 [facility] Comment on above: Order Comment: Order Date: 01/14/24 Order Info: 2497-05 - Order Info: 2275-05 - TRACE Result Comment: mL/m in/1.73m2 CKD-EPI Creatinine Equation (2020) Performed By: #### L 503.6150, [id number], [id number] #### [facility] [address] [place], [address] Globulin (S) [Mass/Vol] 2.6 g/dL Normal 2.2-4.2 [facility] Comment on above: Order Comment: Order Date: 01/14/24 Order Info: 2497-05 - Order Info: 2275-05 - TRACE Performed By: #### L 503.6150, [id number], [id number] #### [facility] [address] [place], [address] Glucose [Mass/Vol] 86 mg/dL Normal 70-99 [facility] Comment on above: Order Comment: Order Date: 01/14/24 Order Info: 2497-05 - Order Info: 2275-05 - TRACE Performed By: #### L 503.6150, [id number], [id number] #### [facility] [address] [place], [address] Potassium [Moles/Vol] 4.0 mmol/L Normal 3.3-5.1 [facility] Comment on above: Order Comment: Order Date: 01/14/24 Order Info: 2497-05 Order Info: 2275-05 - TRACE Performed By: #### L 503.6150, [id number], [id number] #### [facility] [address] [place], [address] Sodium [Moles/Vol] 139 mmol/L Normal 133-145 [facility] Comment on above: Order Comment: Order Date: 01/14/24 Order Info: 2497-05 Order Info: 2275-05 - TRACE Performed By: #### L 503.6150, [id number], [id number] #### [facility] [address] [place], [address] T PROT 6.8 g/dL Normal 5.9-8.4 [facility] Comment on above: Order Comment: Order Date: 01/14/24 Order Info: 2497-05 Order Info: 2275-05 - TRACE Performed By: #### L 503.6150, [id number], [id number] #### [facility] [address] [place], [address] Urea nitrogen [Mass/Vol] 16 mg/dL Normal 4-19 [facility] Comment on above: Order Comment: Order Date: 01/14/24 Order Info: 2497-05 Order Info: 2275-05 - TRACE Performed By: #### L 503.6150, [id number], [id number] #### [facility] [address] [place], [address] GFR/1.73 sq M.predicted zaida g non-blacks MDRD (S/P/Bld) [Vol rate/Area]Ordered By: Juan Nesbitt on 05-27-2024 Estimated GFR (MDRD) Non-Af Amer 70 >60 [facility] Comment on above: mL/min/1.73m2 CKD-EP I Creatinine Equation (2020) LDL calc ser/plasOrdered By: Juan Nesbitt on 05-27-2024 LDL Cholesterol, Calculated 80 mg/dL [facility] Comment on above: Rfvyixjvzk=285-915 m g/dL & Higher Hlap=840 mg/dL or greater Laboratory - Chemistry and C hemistry - challengeOrdered By: Juan Nesbitt on 05-27-2024 AST [Catalytic activity/Vol] 26 U/L <38 [facility] Lipid Profileon 05-27-2024 CHOL:HDL 3.55 Normal [facility] Comment on above: Order Comment: Order Date: 05/26/24 Order Info: 0786-1 - CMP Order Info: [id number] - LIPID Performed By: #### L 500.4100 #### [facility] [address] [facility] [id number] Cholesterol [Mass/Vol] 139 mg/dL Normal <=200 [facility] Comment on above: Order Comment: Order Date: 05/26/24 Order Info: [id number] - CMP Order Info: [id number] - LIPID Result Comment: Chol esterol level, Desirable <200 mg/dL Borderline high cholesterol 200-239 mg/dL High cholesterol >=240 mg/dL Recommendations of the NCEP Adult Treatment Panel for the following risk-cutoff thresholds for the [place] population. Performed By: #### L 500.4100 #### [facility] [address] [place], [place], [address] Cholesterol in HDL [Mass/Vol] 39 mg/dL Low [facility] Comment on above: Order Comment: Order Date: 05/26/24 Order Info: [id number] - CMP Order Info: [id number] - LIPID Result Comment: Norma onal Cholesterol Education Program (NCEP) guidelines: <40 mg/dL: Low HDL-cholesterol (major risk factor for CHD) >= 60 mg/dL: High HDL-cholesterol (negative risk factor for CHD) HDL-cholesterol is affected by a number of factors, e.g. smoking, exercise, hormones, sex and age. Performed By: #### L 500.4100 #### [facility] [address] [place], [place], [address] Cholesterol in LDL [Mass/Vol] 80 mg/dL Normal [facility] Comment on above: Order Comment: Order Date: 05/26/24 Order Info: [id number] - CMP Order Info: [id number] - LIPID Result Comment: Bord bqagft=547-294 mg/dL Higher Avqj=570 mg/dL or greater Performed By: #### L 500.4100 #### [facility] [address] [place], [place], [address] Cholesterol in VLDL [Mass/Vol] 20 mg/dL Normal 5-40 [facility] Comment on above: Order Comment: Order Date: 05/26/24 Order Info: [id number] - CMP Order Info: [id number] - LIPID Performed By: #### L 500.4100 #### [facility] [address] [place], [place], [address] Triglyceride [Mass/Vol] 99 mg/dL Normal [facility] Comment on above: Order Comment: Order Date: 05/26/24 Order Info: [id number] - CMP Order Info: [id number] - LIPID Result Comment: The drugs N-Acetylcysteine and Metamizole may falsely depress this assay. Normal range: <150 mg/dL Borderline High: 150-199 mg/dL High: 200-499 mg/dL Very High: >500 mg/dL Performed By: #### L 500.4100 #### [facility] [address] [place], [place], [address] Potassium (Unsp spec) [Mass/ Vol]Ordered By: Juan Nesbitt on 05-27-2024 Potassium [Moles/Vol] 4.0 mmol/L 3.3-5.1 [facility] Screening total cholesterol/ high density lipoprotein (HDL) cholesterol ratioOrdered By: Juan Nesbitt on 05-27-2024 Cholesterol.total/Cho lesterol in HDL [Mass ratio] 3.55 {ratio} [facility] Serum creatinine measurement (mass/volume)Ordered By: Juan Nesbitt on 05-27-2024 Creatinine [Mass/Vol] 1.09 mg/dL 0.70-1.20 [facility] Serum globulin measurementOr dered By: Juan Nesbitt on 05-27-2024 Globulin (S) [Mass/Vol] 2.6 g/dL 2.2-4.2 [facility] Serum glucose measurement (m ass/volume)Ordered By: Juan Nesbitt on 05-27-2024 Glucose [Mass/Vol] 86 mg/dL 70-99 [facility] Serum or plasma alanine mccarthy otransferase (ALT) measurementOrdered By: Juan Nesbitt on 05-27-2024 ALT [Catalytic activity/Vol] 22 U/L <47 [facility] Serum or plasma albumin brijesh urement (mass/volume)Ordered By: Juan Nesbitt on 05-27-2024 Albumin [Mass/Vol] 4.2 g/dL 3.4-4.8 [facility] Serum or plasma albumin/glob ulin mass ratioOrdered By: Juan Nesbitt on 05-27-2024 Albumin/Globulin [Mass ratio] 1.6 {ratio} 0.9-2.4 [facility] Serum or plasma alkaline cici sphatase measurementOrdered By: Juan Nesbitt on 05-27-2024 ALP [Catalytic activity/Vol] 86 U/L 40-129 [facility] Serum or plasma calcium brijesh urement (mass/volume)Ordered By: Juan Nesbitt on 05-27-2024 Calcium [Mass/Vol] 9.1 mg/dL 7.6-11.0 [facility] Serum or plasma cholesterol in HDL measurement (mass/volume)Ordered By: Juan Nesbitt on 05-27-2024 Cholesterol in HDL [Mass/Vol] 39 mg/dL Low >40 [facility] Comment on above: National Cholesterol Education Program (NCEP) guidelines:<40 mg/dL: Low HDL-cholesterol (major risk factor for CHD)>= 60 mg/dL: High HDL-cholesterol (negative risk factor for CHD)HDL-cholesterol is affected by a number of factors, e.g. smoking, exercise, hormones, sex and age. Serum or plasma cholesterol measurement (mass/volume)Ordered By: Juan Nesbitt on 05-27-2024 Cholesterol [Mass/Vol] 139 mg/dL <201 [facility] Comment on above: Cholesterol level, D esirable <200 mg/dLBorderline high cholesterol 200-239 mg/dLHigh cholesterol >=240 mg/dLRecommendations of the NCEP Adult Treatment Panel for the following risk-cutoff thresholds for the [place] population. Serum or plasma urea nitroge n measurement (mass/volume)Ordered By: Juan Nesbitt on 05-27-2024 Urea nitrogen [Mass/Vol] 16 mg/dL 4-19 [facility] Sodium levelOrdered By: Wili Nsebitt on 05-27-2024 Sodium [Moles/Vol] 139 mmol/L 133-145 [facility] Total proteinOrdered By: Edward Nesbitt on 05-27-2024 Protein [Mass/Vol] 6.8 g/dL 5.9-8.4 [facility] Triglycerides measurementOrd ered By: Juan Nesbitt on 05-27-2024 Triglyceride [Mass/Vol] 99 mg/dL <199 [facility] Comment on above: The drugs N-Acetylcy steine and Metamizole may falsely depress this assay. Normal range: <150 mg/dLBorderline High: 150-199 mg/dLHigh: 200-499 mg/dLVery High: >500 mg/dL Surgery Visit Reporton 03-31 Surgery Visit Report [facility] [address] [place] [address] OFFICE VISIT Date of Service: 03/31/24 MR#: [id number] Acct: [id number] Name: MAO VAZQUEZ Rep #: [id number] : 1945 Provider: Dr. Jimenez luo MD Age/Sex: 78/M Location: [facility] Status: Signed Intake Vital Signs 03/17/24 08:29 Height 5 ft 9 in Intake Visit Reasons: HERNIA 2-6 Chief Complaint: inguinal hernia 2/6 Is patient in pain?: No Allergies codeine Adverse Reaction (Intermediate, Verified 03/31/24 09:37) Itching,eye burning Medications ???Medication ???Instructions ???Recorded ???Confirmed ???Type cholecalciferol (vitamin D3) 50 2,000 unit PO BID 05/28/17 5 History mcg (2,000 unit) tablet simvastatin 20 mg tablet See Rx Instructions .Route .COMPLE X 05/28/17 03/31/24 History lactobacillus combination no.9 4 4,000 mmu cells PO DAILY 06/14/18 03/31/24 History billion cell capsule (Adult 50 Plus Probiotic) omega-3 fatty acids 1,000 mg 1,000 mg PO DAILY 06/14/18 5 History capsule (Fish Oil Concentrate) coenzyme Q10 100 mg capsule 400 mg PO DAILY 06/27/19 03/31/24 History multivitamin 1 tab PO QAM 11/15/20 03/31/24 His tory finasteride 5 mg tablet 5 mg PO QDAY 02/22/24 03/31/24 His tory omeprazole magnesium 20 mg 20 mg PO QDAY PRN GERD 02/22/24 History tablet,delayed release (Prilosec OTC) tamsulosin 0.4 mg capsule 0.4 mg PO QHS 02/22/24 03/31/24 Hi story trazodone 50 mg tablet 50 mg PO QHS 03/03/24 03/31/24 His tory Have you fallen in the past year?: No Subjective Details: Patient still having some soreness in his left testicle. Objective Details: Incision is healing well. Scrotum is normal with no swelling Coding Level of Care Code Global Post Op Diagnoses S/P left inguinal hernia repair Z98.890; Z87.19 [facility] Medical History Wears glasses Alcohol use Arthritis Prostate disease High cholesterol History of hiatal hernia Gastric reflux Former smoker BiPAP (biphasic positive airway pressure) dependence Leg cramps History of echocardiogram Cardiology follow-up encounter History of irregular heartbeat History of deviated nasal septum Pure hypercholesterolemia Ectopic cardiac beats Palpitations Encounter for long-term current use of high risk medication Sinoatrial node dysfunction Abnormal electrocardiogram Contraction, premature ventricular Atrial contractions, premature Hyperlipidemia Surgical History (Updated 03/31/24 @ 09:38 by Kailee Rushing) S/P left inguinal hernia repair Hx of colonoscopy History of vasectomy Family History Father Arthritis Mother CAD (coronary artery disease) Diabetes Hypertension Hyperlipidemia Brother CAD (coronary artery disease) Brother Diabetes Brother Hyperlipidemia Brother Hypertension Social History Smoking Status: Former smoker how long ago did patient quit smokin alcohol intake: current alcohol intake frequency: a few times a month substance use type: does not use caffeine: No what type of physical activity do you participate in: other details: [employer] seatbelt use: always do you feel safe at home: Yes Assessment and Plan (No Qualifiers) Assessment and Plan (1) S/P left inguinal hernia repair: Status: Acute Plan: Patient still having some pain in his left testicle other than that he is doing well. I asked him to come back in a month if his pain was still persistent other than that he can follow-up as needed. Normal activity as tolerated 4 weeks postoperative. Jimenez Waldron MD Pager: [facility] [address] [place] [phone] Office: 03/31/24 1043 Date Jimenez Waldron MD [facility] Signature: Date (if applicable) CC: Normal [facility] 12 Lead EKGon 03-17-2024 12 Lead EKG [facility] [address] [place] [id number] 12 Lead EKG 03/17/24 0819 MR#: [id number] Acct: [id number] Name: MAO VAZQUEZ Jr. Rep #: [id number] : 1945 78 From: Tam Dennis MD Attending Dr: Dr. Jimenez Waldron MD Status: [facility] Ordering Dr: Luis Antonio Lu MD Date: 03/17/24 [place] [facility] Sex: M C Admitted: Test Reason : PREOP Blood Pressure : */* mmHG Vent. Rate : 62 BPM Atrial Rate : 62 BPM P-R Int : 176 ms QRS Dur : 138 ms QT Int : 448 ms P-R-T Axes : 28 -2 -16 degrees QTcB Int : 454 ms Normal sinus rhythm Right bundle branch block Abnormal ECG No previous ECGs available Confirmed by TAM DENNIS MD ([id number]), design editor CARMEN CUNNINGHAM ([id number]) on 03/19/2024 8:09:04 AM Referred By: Jimenez Waldron Confirmed By: TAM DENNIS MD 03/19/24 0809 Date Tam Dennis MD CC: Dr. Luis Antonio Lu MD; Dr. Jimenez Waldron MD; Dr. Juan Nsebitt MD Signed Normal [facility] Discharge Instructionon Discharge Instruction [facility] Medical Records Department [address] [place] [address] Instructions for Home/Discharge Instructions 03/17/24 1119 MR#: [id number] Acct: [id number] Name: MAO VAZQUEZ Jr. Rep #: [id number] : 1945 78 From: Jimenez Waldron MD PCP: Dr. Juan Nesbitt MD Status:REG [facility] Discharge Instructions Procedure Hernia Diet Discharge Diet: Light diet - advance as tolerated Activity Discharge Activity: May Not Drive (for 2-3 days or while taking narcotic pain meds.) and May Shower (with the bandage in place 1-2 days after surgery.) Lifting Restrictions: 20 pounds for 4 weeks. Additional Activity Instructions:: Climbing stairs is fine, walking is encouraged. Sitting in bed may be uncomfortable. Sitting up using your lateral muscles (sitting up sideways) is usually more comfortable. Do not drive, work heavy equipment of sign legal documents for 24 hours. If your hernia repair was an inguinal repair, you may have scrotal swelling, an ice pack and/or athletic support can provide more comfort. Pain medications may cause nausea, you should typically eat light foods as you take your pain medications. Pain medications may also cause constipation. If you have difficulty with this, discuss with your doctor. Alternate ibuprofen and Tylenol for pain control, oxycodone for breakthrough pain. Dressing / Incision Call your doctor if your incision/area has: Continuous Slow Oozing, Sudden Increased Bleeding, Increased Pain/ Swelling, Increased Redness and Foul Smelling Discharge Call your doctor if you observe: Fever of 101 or Higher Suture Line Care: Avoid Pulling/Pushing and Avoid Pinching/Bending Remove Dressing in: 2 days (Remove clear bandages in 2 days, remove Steri-Strips in 7 to 10 days.) Cleanse incision/area with: Soap Water Follow Up Care Please Follow Up With: Jimenez Waldron MD When: Please call to schedule 2 week follow up appointment. [phone] Test Results: Test results from this visit will be discussed in further detail at your follow-up appointment, if applicable. Discharge Plan Admission Attending Provider: Jimenez Waldron Primary Care Provider: Juan Nesbitt Instructions Print Language: Estonian Discharge Orders/Prescriptions Prescriptions: New oxycodone 5 mg Tablet 5 - 10 mg PO Q4H PRN PRN (Reason: Pain Score 4-10) 5 Days Qty: 10 0RF No Action simvastatin 20 mg tablet See Rx Instructions .ROUTE .COMPLEX Patient Comments: 1 tablet PO on even days 2 Tabs PO on odd days Rx Instructions: 1 tablet PO on even days 2 Tabs PO on odd days cholecalciferol (vitamin D3) 2,000 unit tablet 2,000 unit PO BID coenzyme Q10 100 mg capsule 400 mg PO DAILY omega-3 fatty acids [Fish Oil Concentrate] 1,000 mg capsule 1,000 mg PO DAILY Adult 50 Plus Probiotic 4 billion cell capsule 4,000 mmu cells PO DAILY multivitamin Tablet 1 tab PO QAM finasteride 5 mg tablet 5 mg PO QDAY tamsulosin 0.4 mg capsule 0.4 mg PO QHS omeprazole magnesium [Prilosec OTC] 20 mg tablet,delayed release (DR/EC) 20 mg PO QDAY PRN (Reason: GERD) trazodone 50 mg tablet 50 mg PO QHS Referrals / Follow Up: Juan Nesbitt MD [Primary Care Provider] - Disposition Disposition (needs filled in before D/C Order can be placed): Home, Self Care 03/17/24 112 Jimenez Waldron MD CC: Dr. Juan Nesbitt MD Signed [facility] MR/POSTOP.ANE 03-17-2024 MR/POSTOP.[facility] Medical Records Department [address] [place] [address] Anesthesia Postop Eval I 03/17/24 1117 MR#: [id number] Acct: [id number] Name: MAO VAZQUEZ JrSosa Rep #: [id number] : 1945 78 From: Mary Young CRNA PCP: Dr. Juan Nesbitt MD Status:[facility] Y Race: C Location: [place] [address] Anesthesia: Postop Eval I Current Vital Signs Temperature: 97.3 F Pulse Rate: 70 Blood Pressure: 149/83 Respiratory Rate: 16 Pulse Ox: 96 Assessment Airway patent: Yes Spontaneous unlabored respirations: Yes Mental status: Awake and Calm nausea: No Vomiting: No Anesthesia Complication: Yes Anesthesia Complication Comment:: none Fluid Hydration Crystalloid volume administer (ml): 700 Total IV fluid infused: 700 Progress Note Anesthesia document: Postop Eval 1 completed: No 03/17/24 112 Date Mary Young INVESTOR Cosigner Signature: Date CC: Signed [facility] MR/[id number] 03-17-2024 MR/POST[address] Medical Records Department [address] [place] [address] Anesthesia Postop Eval II 03/17/24 1150 MR#: [id number] Acct: [id number] Name: MAO VAZQUEZ Jr. Rep #: [id number] : 1945 78 From: Larissa Rizo PCP: Dr. Juan Nesbitt MD Status:REG [facility] Y Race: C Location: [place] [address] Anesthesia Postop Eval I Sum Postop Eval Completion status Anesthesia document: Postop Eval 1 completed: No Anesthesia Postop Eval I Summary Anesthesia Postop Eval I Summary: Anesthesia Postop Eval I: Assessment Summary Airway patent Yes 03/17/24 11:21 [email or web address] Spontaneous unlabored Yes 03/17/24 11:21 [email or web address] respirations Mental status Awake,Calm 03/17/24 11:21 [email or web address] nausea No 03/17/24 11:21 [email or web address] Vomiting No 03/17/24 11:21 [email or web address] Anesthesia Postop Eval I: Fluid Summary Crystalloid volume administer 700 03/17/24 11:21 [email or web address] (ml) Colloids volume administered ( ml) Blood Product volume administered (ml) Total IV fluid infused 700 03/17/24 11:21 [email or web address] Anesthesia Postop Eval I: Summary Notes Anesthesia Complication Yes 03/17/24 11:21 [email or web address] Anesthesia Complication none 03/17/24 11:21 [email or web address] Comment: Post-operative progress note Anesthesia: Postop Eval II Evaluation Mental status: Awake and Calm Pain Level: 3 nausea: No Vomiting: No 03/17/24 1151 Date Larissa Ponce Signature: Date CC: Signed Normal [facility] Operative Reporton 5 Operative Report [facility] Medical Records Department [address] [place] [address] Operative Report 03/17/24 1115 MR#: [id number] Acct: [id number] Name: MAO VAZQUEZ Jr. Rep #: [id number] : 1945 78 From: Jimenez Waldron MD PCP: Dr. Juan Nesbitt MD Status:[place] [facility] Location: [place] [address] Operative Report (Standard) Operative Information Date of Procedure: 03/17/24 Pre-Operative Diagnosis: Left inguinal hernia Post-Operative Diagnosis: Left inguinal hernia Surgery/Procedure Performed: Robotic assisted laparoscopic left inguinal hernia repair with mesh medical transport specialist: Yes Dishwashing Machine Repairer: Ivette Kirby Tasks completed by assistant inventory manager: Opening and Closing Type of Anesthesia: General/Regional RN Documented Start/Stop Times: Operation Date: 03/17/24 09:35 Case Time Into Pre-Op 03/17/24 08:00 Out of Pre-Op 03/17/24 09:59 Anesthesia Start 03/17/24 10:00 Into Room 03/17/24 10:00 Procedure Start 03/17/24 10:22 Procedure End 03/17/24 11:06 Anesthesia End 03/17/24 11:11 Out of Room 03/17/24 11:11 Procedure Start Time: 10:22 Procedure Stop Time: 11:06 Select all DRAINS/GRAFTS/IMPLANTS that apply: Implanted device Implanted device details: ProGrip mesh Estimated Blood Loss: 10 Specimen collected: No Description of surgery: Patient is brought back to the operating room and general anesthesia was induced. The abdomen was prepped and draped in usual sterile fashion. A midline incision was made superior to the umbilicus and the fascia was grasped with a Sole clamp and elevated and a Veress needle was placed into the abdomen and a drop test was performed. The abdomen was then insufflated to 15 mmHg and the Veress needle was removed. A port was placed into the abdomen and the camera was placed into the abdomen and it was inspected for injuries from entry and there were none. Patient was placed in Trendelenburg position. The patient an indirect left inguinal hernia. Under direct visualization an 8 mm port was placed in the right lateral sidewall as well as the left lateral abdominal sidewall. The robot was then docked. Using electrocautery scissors an incision was made in the peritoneum in the left lower quadrant. Dissection was carried inferiorly until the hernia sac was identified and dissected free and reduced. Next ProGrip mesh was placed over the hernia defect and unfolded completely covering the defect. The peritoneum was then reapproximated using a running 3 OV lock suture completely covering the mesh. The abdomen was allowed to desufflate and the instruments and ports were removed. The incisions were injected with local anesthetic and closed with interrupted 4-0 Monocryl sutures. Steri-Strips and bandages were applied. Scrotum was checked in the case contained both testicles. Patient was awoken and taken to PACU in stable condition and tolerated the procedure well. Surgical Findings: Indirect hernia on the left side Complications Complications: No Admit VTE Documentation VTE Mechan Device Prophylaxis: SCD's 03/17/24 1118 Cosigner Signature (if applicable): CC: Dr. Jimenez Waldron MD; Dr. Juan Nesbitt MD Signed [facility] MR/PAT.ANEon 03-03-2024 MR/PAT.[facility] Medical Records Department [address] [place] [address] PAT - Anesthesia 03/03/24 1726 MR#: [id number] Acct: [id number] Name: MAO VAZQUEZ Jr. Rep #: [id number] : 1945 78 From: Luis Antonio Lu MD PCP: Dr. Juan Nesbitt MD Status:PRE [facility] Y Race: C Location[place] [facility] Pre-Assessment Diagnosis/Proposed Procedure Planned Operative Procedure(s): LAP ROBOTIC LEFT INGUINAL HERNIA REPAIR WITH MESH Anesthesia History Anesthesia History - supervisor claims: Anesthesia History - supervisor claims Hx Hospitalization No 03/03/24 12:58 Any Problems With Anesthesia No 03/03/24 12:58 Cholinesterase deficiency No 03/03/24 12:58 You/Your Family Experience No 03/03/24 12:58 fever (hyperthermia) with Relationship Recent Exposure to Contagious Disease Does patient have nerve No 03/03/24 12:58 stimulator Patient instructed to have device shut off --Does patient have Pacemaker or ICD? When Was Last Pacemaker Check QUESTION #4 FULL TEXT: You/Your Family Experience fever (hyperthermia) with Anesthesia Last Oral Intake Last Oral intake: Last Oral Intake NPO since Meds taken in AM with sips of water? Meds patient instructed to take am of surgery PONV PONV - supervisor claims: PONV - supervisor claims Female No 03/03/24 12:58 HX of Motion Sickness No 03/03/24 12:58 HX of N/V After Surgery No 03/03/24 12:58 Non-Smoker Yes 03/03/24 12:58 Duration of Surgery greater Yes 03/03/24 12:58 than 60 minutes Number of Risk Factors 2 03/03/24 12:58 PONV Score Moderate Risk 03/03/24 12:58 Height Weight Height Weight: Anesthesia: Height Weight Height 5 ft 9 in 02/22/24 09:33 Respiratory Assessment Respiratory Assessment - supervisor claims: Respiratory Tract Infection Hx - supervisor claims Hx Respiratory Tract Infection No 03/03/24 12:58 STOP Sleep Apnea STOP Sleep Apnea - supervisor claims: STOP Sleep Apnea - supervisor claims Hx Hypertension No 03/03/24 12:58 Hx Sleep Apnea Yes 03/03/24 12:58 CPAP No 03/03/24 12:58 BIPAP Yes 03/03/24 12:58 Do you snore loudly (louder No 03/03/24 12:58 than talking or can be heard Do you often feel tired/ No 03/03/24 12:58 fatigued/ sleepy during daytime? Has anyone observed you stop No 03/03/24 12:58 breathing during sleep? STOP Results Positive 03/03/24 12:58 QUESTION #5 FULL TEXT : Do you snore loudly (louder than talking or can be heard through closed doors)? 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 Specify any problems Hx of Preganancy in last 3 N/A 03/03/24 12:58 Months Nurse Filling Out Transfusion DSCHRIBER 03/03/24 12:58 Questions: Date: 03/03/24 03/03/24 12:58 Time: 12:59 03/03/24 12:58 Patient unable to answer at this time (ie. confused, unrespo /Reproduction History /Reproductive History - supervisor claims: /Reproductive Hx- supervisor claims Hx Now No 03/03/24 12:58 Gestational Age (in weeks): EDC: Hx Hx Para Hx Section SAB No 03/03/24 12:58 [facility] Medical History (Updated 03/03/24 @ 13:09 by Breann Luna) Wears glasses Alcohol use Arthritis Prostate disease High cholesterol History of hiatal hernia Gastric reflux Former smoker BiPAP (biphasic positive airway pressure) dependence Leg cramps History of echocardiogram Cardiology follow-up encounter History of irregular heartbeat History of deviated nasal septum Pure hypercholesterolemia Ectopic cardiac beats Palpitations Encounter for long-term current use of high risk medication Sinoatrial node dysfunction Abnormal electrocardiogram Contraction, premature ventricular Atrial contractions, premature Hyperlipidemia Home Medications ???Medication ???Instructions ???Recorded ???Last Taken ???Type cholecalciferol (vitamin D3) 50 2,000 unit PO BID 05/28/17 Unknown History mcg (2,000 (more content not included)... Normal [facility] Surgery Visit Reporton 02-21 Surgery Visit Report [facility] [address] [place] [address] [address] [place] [address] OFFICE VISIT Date of Service: 02/22/24 MR#: [id number] Acct: [id number] Name: MAO VAZQUEZ JrSosa Rep #: [id number] : 1945 Provider: Dr. Jimenez luo MD Age/Sex: 78/M Location: [facility] Status: Signed Intake Vital Signs 06/13/23 09:25 02/22/24 09:33 Height 5 ft 9 in 5 ft 9 in Weight: 188 lb BMI 27.7 BP 115/79 Blood Pressure Location Rt brachial Position Sitting Respiration 17 Pulse 73 Pulse Source Monitor Pulse Oximetry (%) 95 Oxygen Delivery Method room air Intake Visit Reasons: INGUINAL HERNIA Chief Complaint: inguinal hernia Is patient in pain?: No Allergies codeine Adverse Reaction (Intermediate, Verified 02/22/24 09:33) Itching,eye burning Medications ???Medication ???Instructions ???Recorded ???Confirmed ???Type cholecalciferol (vitamin D3) 50 2,000 unit PO BID 05/28/17 02/22/24 History mcg (2,000 unit) tablet simvastatin 20 mg tablet See Rx Instructions .Route .COMPLEX 05/28/17 02/22/24 History lactobacillus combination no.9 4 4,000 mmu cells PO DAILY 06/14/18 02/22/24 History billion cell capsule (Adult 50 Plus Probiotic) omega-3 fatty acids 1,000 mg 1,000 mg PO DAILY 06/14/18 02/22/24 History capsule (Fish Oil Concentrate) coenzyme Q10 100 mg capsule 400 mg PO DAILY 06/27/19 02/22/24 History multivitamin 1 tab PO QAM 11/15/20 02/22/24 History finasteride 5 mg tablet 5 mg PO QDAY 02/22/24 02/22/24 History omeprazole magnesium 20 mg 20 mg PO QDAY 02/22/24 02/22/24 History tablet,delayed release (Prilosec OTC) tamsulosin 0.4 mg capsule 0.4 mg PO QDAY 02/22/24 02/22/24 History Have you fallen in the past year?: No PFSH Medical History (Updated 02/22/24 @ 09:[address] Jimenez Waldron MD) GERD (gastroesophageal reflux disease) Deviated nasal septum Pure hypercholesterolemia Ectopic cardiac beats Palpitations Encounter for long-term current use of high risk medication Sinoatrial node dysfunction Abnormal electrocardiogram Contraction, premature ventricular Atrial contractions, premature Hyperlipidemia Surgical History (Updated 02/22/24 @ 09:32 by Kailee Rushing) H/O straightening of nasal septum History of vasectomy Family History Father Arthritis Mother CAD (coronary artery disease) Diabetes Hypertension Hyperlipidemia Brother CAD (coronary artery disease) Brother Diabetes Brother Hyperlipidemia Brother Hypertension Social History Smoking Status: Former smoker how long ago did patient quit smokin alcohol intake: current alcohol intake frequency: a few times a month substance use type: does not use caffeine: No what type of physical activity do you participate in: other details: [employer] seatbelt use: always do you feel safe at home: Yes HPI HPI HPI: Patient is a 78-year-old male here with left inguinal hernia. He says has been out for a few weeks to a month. He says it fong and is uncomfortable especially when he does any lifting or strenuous activity. He is a very active individual who exercises a lot. ROS General General: No weight change, appetite, fatigue, colon cancer, breast cancer or weakness HEENT HEENT: No difficulty swallowing, eye injury, eye surgery, swollen glands or hoarseness Endo Endocrine: No thyroid disease, diabetes mellitus, thyroid cancer, Hair loss, heat intolerance or cold intolerance Skin Skin: No rash or changing moles Musc Musculoskeletal: Yes arthritis; No back problems, rheumatoid arthritis, gout or joint pain Cardio Cardiovascular: No murmur, pacemaker, heart disease, atrial fibrillation, high blood pressure, heart attack, heart stent, palpitations, shortness of breat with exertion or chest pain Psych Psychiatric: No depression, anxiety or hearing voices Resp Respiratory: No shortness of breath, Yes sleep apnea, No cough, No COPD, No asthma, No emphysema and No wheezing Gastro Gastrointestinal: Yes abdominal pain, No nausea or vomiting, No diarrhea, No constipation, No blood in stool, Yes acid reflux, No hemorrhoids, No ulcers, No gallbladder problem and No black,tarry stools [place] Hematologic: No blood thinners, No blood disorders, No bleeding, No anemia and No blood clots Neuro Neurologic: No system reviewed and no additional complaints, except as documented, No as per HPI, No abnormal gait, No abnormal hearing, No abnormal movements, No abnormal speech, No behavioral changes, No burning sensations, No confusion, No convulsions, No disequilibrium, No dizziness, No localized weakness, No frequent falls, No headache(s), No lack of coordination, No loss of vision (more content not included)... Normal [facility] CBC-Complete Blood Cnt No Di ffon 01-14-2024 Erythrocyte distribution width (RBC) [Ratio] 13.2 % Normal 11.6-14.6 [facility] Comment on above: Order Comment: Order Date: 01/14/24 Order Info: [id number] - CBC Performed By: #### L 503.6150, L503.6550, L100.0500 #### [facility] [address] [place], [address] Hematocrit (Bld) [Volume fraction] 45.8 % Normal 40-54 [facility] Comment on above: Order Comment: Order Date: 01/14/24 Order Info: [id number] - CBC Performed By: #### L 503.6150, L503.6550, L100.0500 #### [facility] [address] [place], [address] Hemoglobin (Bld) [Mass/Vol] 15.7 g/dL Normal 13.0-16.5 [facility] Comment on above: Order Comment: Order Date: 01/14/24 Order Info: [id number] - CBC Performed By: #### L 503.6150, L503.6550, L100.0500 #### [facility] [address] [place], [address] MCH (RBC) [Entitic mass] 30.5 pg Normal 27.0-32.0 [facility] Comment on above: Order Comment: Order Date: 01/14/24 Order Info: [id number] - CBC Performed By: #### L 503.6150, L503.6550, L100.0500 #### [facility] [address] [place], [address] MCHC (RBC) [Mass/Vol] 34.3 g/dL Normal 32-36 [facility] Comment on above: Order Comment: Order Date: 01/14/24 Order Info: [id number] - CBC Performed By: #### L 503.6150, L503.6550, L100.0500 #### [facility] [address] [place], [address] MCV (RBC) [Entitic vol] 89.1 fL Normal 80-94 [facility] Comment on above: Order Comment: Order Date: 01/14/24 Order Info: [id number] - CBC Performed By: #### L 503.6150, L503.6550, L100.0500 #### [facility] [address] [place], [address] Platelet mean volume (Bld) [Entitic vol] 9.8 fL Normal 6.2-12.0 [facility] Comment on above: Order Comment: Order Date: 01/14/24 Order Info: [id number] - CBC Performed By: #### L 503.6150, L503.6550, L100.0500 #### [facility] [address] [place], [address] Platelets (Bld) [#/Vol] 203 10*3/uL Normal 150-450 [facility] Comment on above: Order Comment: Order Date: 01/14/24 Order Info: [id number] - CBC Performed By: #### L 503.6150, L503.6550, L100.0500 #### [facility] [address] [place], [address] RBC (Bld) [#/Vol] 5.14 10*6/uL Normal 4.6-6.2 [facility] Comment on above: Order Comment: Order Date: 01/14/24 Order Info: [id number] - CBC Performed By: #### L 503.6150, L503.6550, L100.0500 #### [facility] [address] [place], [address] RDW SD 42.6 fl Normal 35.1-43.9 [facility] Comment on above: Order Comment: Order Date: 01/14/24 Order Info: [id number] - CBC Performed By: #### L 503.6150, L503.6550, L100.0500 #### [facility] [address] [place], [address] WBC (Bld) [#/Vol] 4.1 10*3/uL Low 4.4-11.0 [facility] Comment on above: Order Comment: Order Date: 01/14/24 Order Info: [id number] - CBC Performed By: #### L 503.6150, L503.6550, L100.0500 #### [facility] [address] [place], [place], [address] Ferritinon 01-14-2024 Ferritin [Mass/Vol] 101 ng/mL Normal 26-388 [facility] Comment on above: Order Comment: Order Date: 01/14/24 Order Info: [id number] - FE Order Info: [id number] - TRACE Performed By: #### L 503.6150, L503.6550, L100.0500 #### [facility] [address] [place], [address] Ironon 01-14-2024 Iron [Mass/Vol] 114 ug/dL Normal 65-175 [facility] Comment on above: Order Comment: Order Date: 01/14/24 Order Info: [id number] - FE Order Info: [id number] - TRACE Performed By: #### L 503.6150, L503.6550, L100.0500 #### [facility] [address] [place], [place], [address] 34BE12 (add)on 11-05-2023 34BE12 (add) ---- Patient Age/Sex Location Account Attending Physician [facility]QUE[facility]Sosa 78[id number] Dr. Alin Márquez MD Specimen: [id number] Received: 11/09/23 Status: ROSANA [place] Num: [id number] Spec Type: IMMUNO Subm Dr: Dr. Alin Márquez MD PHYSICIAN INSTITUTION [place] [address] SPECIMEN INFORMATION: Tissue Source: B- Right mid, C- Right base, D- Left apex, F- Left bas Clinical Info: Elevated PSA Specimen Number: [id number] B, C, D, F CPT code: 57876,40250x4 METHODOLOGY: Deparaffinized sections of prefer/formalin-fixed tissue or PAP/DQ stained slides are incubated with monoclonal/polyclonal antibodies/oligonucleoti de probes. Localization is made via biotin free immunoperoxidase method. Appropriate controls are performed and reacted as expected. Results on target cell population are indicated in the following table: RESULTS: ANTIBODY / CLONE RESULT Block B P40 (BC28) positive 34BE12 (34BE12) positive Block C P40 (BC28) positive 34BE12 (34BE12) positive Block D P40 (BC28) positive 34BE12 (34BE12) positive Block F P40 (BC28) positive 34BE12 (34BE12) positive These tests were developed and their performance characteristics determined by [facility]. They may not have been cleared or approved by the U.S. Food and Drug Administration. The FDA has determined that such clearance or approval is not necessary. The above immunohistochemical/dual JENNIFER markers are ordered and reviewed by the Pathologist. INTERPRETATION: B. Prostate, right mid, core biopsy: Benign prostatic tissue. C. Prostate, right base, core biopsy: Benign prostatic tissue. Patient Age/Sex Location Account Attending Physician MAO VAZQUEZ Jr. 78/M [facility] [id number] Dr. Alin Márquez MD INTERPRETATION: (Continued) D. Prostate, left apex, core biopsy: Benign prostatic tissue. F. Prostate, left base, core biopsy: Benign prostatic tissue. AM. 11/10/2023 Signed (signature on file) Dr. Waqas Sweeney DO 11/10/23 1319 [facility] Comment on above: Performed By: #### P 34BE12. #### [facility] [place], [address] PROSTATE BXon 11-05-2023 PROSTATE BX ---- Patient Age/Sex Location Account Attending Physician MAO VAZQUEZ Jr. [facility] [id number] Dr. Alin Márquez MD Specimen: [id number] Received: 11/06/23 Status: SHARADipak [place] Num: [id number] Spec Type: PROST BX Subm Dr: Dr. Alin Márquez MD HEADER OPERATION: Prostate biopsy PRE-OP DIAGNOSIS: Elevated PSA TISSUE SUBMITTED: A - Right apex, B - Right mid, C - Right base, D - Left apex, E - Left mid, F - Left base MICROSCOPIC DIAGNOSIS A. Right prostate, apex, core biopsy: Chronic prostatitis. Glandular atrophy. B. Right prostate, mid, core biopsy: Chronic prostatitis. Glandular atrophy. See comment. C. Right prostate, base, core biopsy: Chronic prostatitis. Glandular atrophy. See comment. D. Left prostate, apex, core biopsy: Chronic prostatitis. Glandular atrophy. See comment. E. Left prostate, mid, core biopsy: Chronic prostatitis. Glandular atrophy. F. Left prostate, base, core biopsy: Chronic prostatitis. Glandular atrophy. See comment. AM. 11/09/2023 COMMENT B, C, D, F. Immunohistochemistry ([id number]) supports the above diagnosis. MICROSCOPIC DESCRIPTION Slides are reviewed. Patient Age/Sex Location Account Attending Physician MAO VAZQUEZ Jr. 78[facility] [id number] Dr. Alin Márquez MD GROSS DESCRIPTION A - Received is one container designated prostate, right apex. The specimen consists of two elongated fragments of light jade-white soft tissue each measuring 1.5 cm in length and 0.1 cm in diameter. The specimen is totally submitted in one cassette. B - Received is one container designated prostate, right mid. The specimen consists of two elongated fragments of light jade-white soft tissue each measuring 2.0 cm in length and 0.1 cm in diameter. The specimen is totally submitted in one cassette. C - Received is one container designated prostate, right base. The specimen consists of two elongated fragments of light jade-white soft tissue each measuring 1.7 cm in length and 0.1 cm in diameter. The specimen is totally submitted in one cassette. D - Received is one container designated prostate, left apex. The specimen consists of two elongated fragments of light jade-white soft tissue each measuring 1.2 cm in length and 0.1 cm in diameter. The specimen is totally submitted in one cassette. E - Received is one container designated prostate, left mid. The specimen consists of two elongated fragments of light jade-white soft tissue each measuring 1.9 cm in length and 0.1 cm in diameter. The specimen is totally submitted in one cassette. F - Received is one container designated prostate, left base. The specimen consists of two elongated fragments of light jade-white soft tissue measuring 0.8 and 1.5 cm in length and 0.1 cm in diameter. The specimen is totally submitted in one cassette. / 11/06/2023 TC:3 CPT: G0146 Patient Age/Sex Location Account Attending Physician GEORGEMAO SOLORZANO JrSosa 78/M [facility] [id number] Dr. Alin Márquez MD Signed (signature on file) Dr. Waqas Sweeney DO 11/10/23 1319 Normal [facility] Comment on above: Performed By: #### P PROSB #### [facility] [address] [place], [place], [id number] PSA,Total- Diagnosticon 10-10 PSA, DIAGNOSTIC 12.40 ng/mL High 0.0-4.0 [facility] Comment on above: Result Comment: This test was performed using the TPSA assay method for the CLIPPATE system. Values obtained with different assay methods cannot be used interchangably. When changing PSA assays in the course of monitoring a patient, additional sequential testing should be carried out to confirm baseline values. Performed By: #### L 503.6150, L503.6550, L100.0500 #### [facility] [address] [place], [place], [id number] Urine Cultureon 06-17-2023 [facility] Staphylococcus aureu s Pablo Count 11,000-25,000 Staphylococcus aureus: REACTION cefOXitin Susc Islt NEG Doxycycline Islt MARCIA 1 S Clindamycin.induced Susc Islt NEG Gentamicin Islt MARCIA <=0.5 S Linezolid Islt MARCIA 2 S Moxifloxacin Islt MARCIA <=0.25 S Nitrofurantoin Islt MARCIA <=16 S Oxacillin Susc Islt <=0.25 S Tetracycline Islt MARCIA >=16 R TMP SMX Islt MARCIA <=10 S Vancomycin Islt MARCIA 1 S Normal [facility] Comment on above: Performed By: #### L 503.6150, L503.6550, L100.0500 #### [facility] [address] [place], [place], [id number] Culture, urineOrdered By: William Gonzalez on 06-15-2023 Bacteria identified Cx Nom (U) Staphylococcus aureus [facility] - Chemistry and C hemistry - challengeon 06-13-2023 Bilirubin Ql (U) Negative [facility] Glucose Ql (U) Negative [facility] Ketones Ql (U) Negative [facility] pH (U) 6.0 [pH] [facility] Specific gravity (U) [Rel density] 1.015 [facility] Urobilinogen (U) [Mass/Vol] Negative [facility] - Hematology and Cell countson 06-13-2023 Hemoglobin Ql (U) Moderate [facility] - Specimen inform ationon 06-13-2023 Clarity (U) Cloudy [facility] Color (U) DARK YELLOW [facility] - Urinalysison Nitrite Ql (U) Negative [facility] Protein Ql (U) 2+ [facility] No Panel Informationon 06-12 Urine Leukocytes Positive [facility] Urine Non-Hemolyzed Blood [facility] Urgent Care Visit Reporton 0 06-13-2023 Urgent Care Visit Report [facility] [address], [address] [place], [place] [id number] OFFICE VISIT Date of Service: 06/13/23 MR#: [id number] Acct: [id number] Name: MAO VAZQUEZ Jr. Rep #: [id number] : 1945 Provider: CASSIDY Gonzalez Age/Sex: 78/M Location[facility] Status: Signed Intake Vital Signs 12/16/21 14:26 06/13/23 09:25 Height 5 ft 9.5 in 5 ft 9 in Weight: 185 lb 8 oz BMI 27.3 BP 126/76 H Blood Pressure Location Lt brachial Position Sitting Respiration 16 Pulse 88 Pulse Source NIBP Temp 98.3 F Temp Source Temporal Pulse Oximetry (%) 96 Oxygen Delivery Method room air Intake Visit Reasons: Urinary tract infection Chief Complaint: urinary urgency/incontinence and burning Chemist Internship Required: No Is patient in pain?: No Allergies codeine Adverse Reaction (Intermediate, Verified 06/13/23 10:00) Itching,eye burning Medications cholecalciferol (vitamin D3) 50 mcg (2,000 unit) tablet 2,000 unit PO BID 05/28/17 [History Confirmed 12/16/21] simvastatin 20 mg tablet See Rx Instructions .Route .COMPLEX 05/28/17 [History Confirmed 12/16/21] lactobacillus combination no.9 4 billion cell capsule (Adult 50 Plus Probiotic) 4,000 mmu cells PO DAILY 06/14/18 [History Confirmed 12/16/21] omega-3 fatty acids 1,000 mg capsule (Fish Oil Concentrate) 1,000 mg PO DAILY 06/14/18 [History Confirmed 12/16/21] coenzyme Q10 100 mg capsule 400 mg PO DAILY 06/27/19 [History Confirmed 12/16/21] multivitamin 1 tab PO QAM 11/15/20 [History Confirmed 12/16/21] turmeric root extract 500 mg capsule 500 mg PO BID 12/16/21 [History Confirmed 12/16/21] ciprofloxacin HCl 500 mg tablet 500 mg PO BID 10 days #20 tabs 06/13/23 [Rx Confirmed 06/13/23] Nurse's Note: urinary urgency/incontinence and burning x 4 days worsening. concern for uti. denies abd pain/flank pain/fever PFSH Medical History Abnormal electrocardiogram Atrial contractions, premature Contraction, premature ventricular Deviated nasal septum Ectopic cardiac beats Encounter for long-term current use of high risk medication Hyperlipidemia Palpitations Pure hypercholesterolemia Sinoatrial node dysfunction Surgical History History of vasectomy Family History Father Arthritis Mother CAD (coronary artery disease) Diabetes Hypertension Hyperlipidemia Brother CAD (coronary artery disease) Brother Diabetes Brother Hyperlipidemia Brother Hypertension Social History Smoking Status: Former smoker how long ago did patient quit smokin alcohol intake: current alcohol intake frequency: a few times a month substance use type: does not use caffeine: No what type of physical activity do you participate in: other details: [employer] seatbelt use: always do you feel safe at home: Yes HPI HPI Chief Complaint: urinary urgency/incontinence and burning Details: MAO VAZQUEZ, is a 78 M who presents to the office today for burning -started about 4 days ago -had wellness physical his PSA jumped from 4+ something to 7.83- has appt with urology coming up -having involuntary drips- this was not new- -now having involuntary urination and going 5-6x an hour -yesterday took 2 advil in am and pm and improved the sx +dysuria, flow is normal -denies any blood or discharge -urine is orange in color -no fever did have chills last night- -drinking plenty of water no sodas, 1 cup of decaf in morning -no abd/pelvic or back pain ROS Const Constitutional: Positive for other (ROS negative x6 except what was placed in HPI) Exam Const General: cooperative and no acute distress Orientation: alert and oriented x3 Resp Effort Inspection: normal respiratory effort, able to speak in complete sentences and symmetric chest movement Auscultation: Bilateral: Clear to Auscultation, Left: Clear to Auscultation and Right: Clear to Auscultation Cardio Rate: regular rate Rhythm: regular rhythm Heart Sounds: S1 normal and S2 normal GI Auscultation: normal bowel sounds Palpation: soft and no hepatosplenomegaly Other: -no abd/pelvic pain with palpation -no CVA tenderness Neuro General: patient alert, patient awake and patient oriented x3 Extrem General: normal to inspection and full ROM Psych Appearance: grossly normal Mental Status: mental status grossly normal Attitude: cooperative Thought Process: normal Thought Content: normal Judgment: judgment good Results POC Urinalysis Dip (Clinic) Office Urine Color DARK YELLOW Last Edit by Angella Carpio on 06/13/23 09:32 Office Urine Clarity Cloudy Last Edit by Angella Carpio on 06/13/23 09: (more content not included)... Normal [facility] Basophil percentageOrdered B y: Kapilterrie Laz on 05-26-2023 Basophil percentage 7.86 ng/mL 0.0-4.0 [facility] Comment on above: This test was perfor med using the TPSA assay method for theUniQure chemistry system. Values obtained with differentassay methods cannot be used interchangably.When changing PSA assays in the course of monitoring apatient, additional sequential testing should be carriedout to confirm baseline values. Bilirubin [Mass/Vol] 1.20 mg/dL 0.20-1.00 [facility] Comment on above: For patients on eltr ombopag therapy, use of Dimension [place] TBIL is not recommended. Chloride [Moles/Vol] 105 mmol/L 98-107 [facility] Cholesterol [Mass/Vol] 144 mg/dL <200 [facility] Comment on above: <200 mg/dL Desirable 200-240 mg/dL Borderline >240 mg/dL High Risk Glucose [Mass/Vol] 94 mg/dL 74-106 [facility] Potassium [Moles/Vol] 4.1 mmol/L 3.5-5.1 [facility] Protein [Mass/Vol] 7.1 g/dL 6.4-8.2 [facility] Sodium [Moles/Vol] 139 mmol/L 136-145 [facility] Triglyceride [Mass/Vol] 73 mg/dL <199 [facility] Comment on above: The drugs N-Acetylcy steine and Metamizole may falsely depress this assay.Serum Triglycerides Reference Interval Normal <150 mg/dL Borderline high 150 - 199 mg/dL High 200 - 499 mg/dL Very High > or = 500 mg/dL Laboratory - Chemistry and C hemistry - challengeOrdered By: Juan Nesbitt on 05-26-2023 Albumin/Globulin [Mass ratio] 1.3 {ratio} 0.9-2.4 [facility] ALP [Catalytic activity/Vol] 72 U/L 45-117 [facility] ALT [Catalytic activity/Vol] 28 U/L 16-61 [facility] Cholesterol in HDL [Mass/Vol] 43 mg/dL >40 [facility] Comment on above: The drugs N-Acetylcy steine and Metamizole may falsely depress this assay. Reference Range HDL <40 mg/dL Low HDL Cholesterol HDL >or= 60 mg/dL High HDL Cholesterol Cholesterol in LDL [Mass/Vol] 86 mg/dL 0-130 [facility] CO2 [Moles/Vol] 30.0 mmol/L 21.0-32.0 [facility] Globulin (S) [Mass/Vol] 3.1 g/dL 2.2-4.2 [facility] Urea nitrogen/Creatinine [Mass ratio] 16.1 mg/mg 10-20 [facility] No Panel InformationOrdered By: Juan Nesbitt on 05-26-2023 Estimated GFR (MDRD) Amer 77 mL/min >60 [facility] Comment on above: GFR Calc Estimated GFR (MDRD) Non-Af Amer 64 mL/min >60 [facility] Comment on above: Non- GFR Calc VLDL Cholesterol 15 mg/dL 5-40 [facility] Serum or plasma calcium brijesh urement (mass/volume)Ordered By: Juan Nesbitt on 05-26-2023 Calcium [Mass/Vol] 9.0 mg/dL 8.5-10.1 [facility] Serum or plasma creatinine m easurement (mass/volume)Ordered By: Juan Nesbitt on 05-26-2023 Creatinine [Mass/Vol] 1.18 mg/dL 0.70-1.30 [facility] Comment on above: The validity of the calculated GFR & GFRAA in patients over 70 years has not been determined. Clinical correlation is essential. Serum or plasma urea nitroge n measurement (mass/volume)Ordered By: Juan Nesbitt on 05-26-2023 Urea nitrogen [Mass/Vol] 19 mg/dL 7-18 [facility] Thin prep Papanicolaou smear with manual screeningOrdered By: Juan Nesbitt on 05-26-2023 Thin prep Papanicolaou smear with manual screening 4.0 g/dL 3.2-5.0 [facility] Thin prep Papanicolaou smear with manual screening 32 U/L 15-37 [facility] Thin prep Papanicolaou smear with manual screening 4 5-15 [facility] No Panel Informationon 08-09 Percent Free Prostate Specific Ag 1.21 ng/mL N/A [facility] Work Phone: Comment on above: [place] ECLIA methodol ogy. Prostate Specific Antigen Total 3.8 ng/mL 0.0-4.0 [facility] Work Phone: Comment on above: [place] ECLIA methodol ogy.According to the [employer], Serum PSAshould decrease and remain at undetectable levels afterradical prostatectomy. The AUA defines biochemicalrecurrence as an initial PSA value 0.2 ng/mL or greaterfollowed by a subsequent confirmatory PSA value 0.2 ng/mLor greater. Values obtained with different assay methods orkits cannot be used interchangeably. Results cannot beinterpreted as absolute evidence of the presence or absenceof malignant disease. Serum or plasma free prostat e specific antigen/total prostate specific antigen ratioon 08-09-2021 Free PSA/Total PSA [Mass fraction] 31.8 % . [facility] Work Phone: Comment on above: The table below list s the probability of prostate cancer formen with non-suspicious JOSUE results and total PSA between4 and 10 ng/mL, by patient age (Christina et al, ADRIANE 1998,279:1542). % Free PSA 50-64 yr 65-75 yr 0.00-10.00% 56% 55% 10.01-15.00% 24% 35% 15.01-20.00% 17% 23% 20.01-25.00% 10% 20% >25.00% 5% 9%Please note: Christina et al did not make specific recommendations regarding the use of percent free PSA for any other population of men.Performed at: [facility] [address] [id number] Director: Scott Walters PhD, Phone: [phone] Basophil percentageon 2021 Chloride [Moles/Vol] 105 mmol/L 98-107 [facility] Work Phone: Cholesterol [Mass/Vol] 147 mg/dL <200 [facility] Work Phone: Comment on above: <200 mg/dL Desirable 200-240 mg/dL Borderline >240 mg/dL High Risk Glucose [Mass/Vol] 96 mg/dL 74-106 [facility] Work Phone: Potassium [Moles/Vol] 4.1 mmol/L 3.5-5.1 [facility] Work Phone: Sodium [Moles/Vol] 140 mmol/L 136-145 [facility] Work Phone: Triglyceride [Mass/Vol] 96 mg/dL <199 [facility] Work Phone: Comment on above: The drugs N-Acetylcy steine and Metamizole may falsely depress this assay.Serum Triglycerides Reference Interval Normal <150 mg/dL Borderline high 150 - 199 mg/dL High 200 - 499 mg/dL Very High > or = 500 mg/dL Laboratory - Chemistry and C hemistry - challengeon 05-09-2021 CO2 [Moles/Vol] 29.0 mmol/L 21.0-32.0 [facility] Work Phone: Urea nitrogen/Creatinine [Mass ratio] 15.1 mg/mg 10-20 [facility] Work Phone: No Panel Informationon 05-09 Estimated GFR (MDRD) Amer 88 mL/min >60 [facility] Work Phone: Comment on above: GFR Calc Estimated GFR (MDRD) Non-Af Amer 72 mL/min >60 [facility] Work Phone: Comment on above: Non- GFR Calc Free Prostate Specific Antigen 1.89 ng/mL N/A [facility] Work Phone: Comment on above: [place] ECLIA methodol ogy. Percent Free Prostate Specific Ag 32.6 % . [facility] Work Phone: Comment on above: The table below list s the probability of prostate cancer formen with non-suspicious JOSUE results and total PSA between4 and 10 ng/mL, by patient age (Christina et al, ADRIANE 1998,279:1542). % Free PSA 50-64 yr 65-75 yr 0.00-10.00% 56% 55% 10.01-15.00% 24% 35% 15.01-20.00% 17% 23% 20.01-25.00% 10% 20% >25.00% 5% 9%Please note: Christina et al did not make specific recommendations regarding the use of percent free PSA for any other population of men. Prostate Specific Antigen Comment . [facility] Work Phone: Comment on above: The percent free PSA is performed on a reflex basis onlywhen the total PSA is between 4.0 and 10.0 ng/mL.Performed at: [facility] [id number] Director: Scott Walters PhD, Phone: [phone] Prostate Specific Antigen Total 5.8 ng/mL 0.0-4.0 [facility] Work Phone: Comment on above: [employer] ECLIA methodol ogy.According to the [employer], Serum PSAshould decrease and remain at undetectable levels afterradical prostatectomy. The AUA defines biochemicalrecurrence as an initial PSA value 0.2 ng/mL or greaterfollowed by a subsequent confirmatory PSA value 0.2 ng/mLor greater. Values obtained with different assay methods orkits cannot be used interchangeably. Results cannot beinterpreted as absolute evidence of the presence or absenceof malignant disease. Serum or plasma calcium brijesh urement (mass/volume)on 05-09-2021 Calcium [Mass/Vol] 9.3 mg/dL 8.5-10.1 [facility] Work Phone: Serum or plasma cholesterol in HDL measurement (mass/volume)on 05-09-2021 Cholesterol in HDL [Mass/Vol] 41 mg/dL >40 [facility] Work Phone: Comment on above: The drugs N-Acetylcy steine and Metamizole may falsely depress this assay. Reference Range HDL <40 mg/dL Low HDL Cholesterol HDL >or= 60 mg/dL High HDL Cholesterol Serum or plasma cholesterol in VLDL measurement (mass/volume)on 05-09-2021 Cholesterol in VLDL [Mass/Vol] 19 mg/dL 5-40 [facility] Work Phone: Serum or plasma creatinine m easurement (mass/volume)on 05-09-2021 Creatinine [Mass/Vol] 1.06 mg/dL 0.70-1.30 [facility] Work Phone: Comment on above: The validity of the calculated GFR & GFRAA in patients over 70 years has not been determined. Clinical correlation is essential. Serum or plasma low density lipoprotein (LDL) cholesterol measurement (mass/volume)on 05-09-2021 Cholesterol in LDL [Mass/Vol] 87 mg/dL 0-130 [facility] Work Phone: Serum or plasma urea nitroge n measurement (mass/volume)on 05-09-2021 Urea nitrogen [Mass/Vol] 16 mg/dL 7-18 [facility] Work Phone: Thin prep Papanicolaou smear with manual screeningon 05-09-2021 Thin prep Papanicolaou smear with manual screening 6 5-15 [facility] Work Phone: ALT/SGPTon 04-23-2017 Alanine aminotransferase (ALT) 26 U/L Normal 10-35 [facility] ([place]) Comment on above: Performed By: #### G SARAH, AST, ALT, LIPID ####[address] [place], [place] [address] Ashley 04-23-2017 Aspartate aminotransferase (AST) 29 U/L Normal 10-40 [facility] ([place]) Comment on above: Performed By: #### G SARAH, AST, ALT, LIPID ####[address] [place], [place] [address] GLUon 04-23-2017 Glucose mass conc 84 mg/dL Normal 83-110 [facility] ([place]) Comment on above: Performed By: #### G SARAH, AST, ALT, LIPID ####[address] [place], [place] [address] LIPIDon 04-23-2017 HDL Cholesterol 50 mg/dL Normal 35-90 [facility] ([place]) Comment on above: Result Comment: HDL Reference Interval:Less than 40 Low - high risk60 or above Optimal/lowers risk Performed By: #### G SARAH, AST, ALT, LIPID ####Eric [address] [place], [place] [address] LDL Cholesterol 100 mg/dL Normal 0-130 [facility] ([place]) Comment on above: Result Comment: LDL is a calculated result and requires a 12- hr fast.LDL Reference Interval:Less than 100 [id number] Near or above [id number] Borderline high [id number] High wvap897 and above Very high risk Performed By: #### G SARAH, AST, ALT, LIPID ####[address] [place] [address] Cholesterol 167 mg/dL Normal 131-200 [facility] ([place]) Comment on above: Result Comment: Chol esterol Reference Interval:Less than 200 [id number] Borderline high odqh879 and above High risk Performed By: #### G SARAH, AST, ALT, LIPID ####[address] [place] [id number] Triglyceride 84 mg/dL Normal 40-150 [facility] ([place]) Comment on above: Result Comment: Trig lyceride Reference Interval:Less than 150 Mkurzk106-792 Borderline high buqx179-620 High dmbr211 or higher Very high risk Performed By: #### G SARAH, AST, ALT, LIPID ####[address] [place], [place] [address] Vital Signs Date Time Vital Sign Value Performing Clinician Faci lity 03-17-2024 11:57-0500 Body temperature 97.2 [degF] Dr. Juan Nesbitt MD Work Phone: [facility] 03-17-2024 11:57-0500 Diastolic blood pressure 91 mm[Hg] Dr. Juan Nesbitt MD Work Phone: [facility] 03-17-2024 11:57-0500 Heart rate 59 /min Dr. Juan Nesbitt MD Work Phone: [facility] 03-17-2024 11:57-0500 Respiratory rate 16 /min Dr. Juan Nesbitt MD Work Phone: 4(904)594-930841 [place] [address] 03-17-2024 11:57-0500 SaO2% (BldA) [Mass fraction] 96 % Dr. Juan Nesbitt MD Work Phone: 6(540)186-663441 [place] [address] 03-17-2024 11:57-0500 Systolic blood pressure 130 mm[Hg] Dr. Juan Nesbitt MD Work Phone: 3(672)490-584141 [place] [address] 03-17-2024 08:29-0500 Body height 175.[address] Juan Nesbitt MD Work Phone: 1(332)207-297341 [place] [address] 03-17-2024 08:29-0500 Body mass index (BMI) [Ratio] 27.1 kg/m2 Dr. Juan Nesbitt MD Work Phone: 0(837)327-176741 [place] [address] 03-17-2024 08:29-0500 Body weight 83.[address] Juan Nesbitt MD Work Phone: 5(915)519-439641 [place] [address] 02-22-2024 09:33-0500 Body mass index (BMI) [Ratio] 27.7 kg/m2 Dr. Juan Nesbitt MD Work Phone: 4(035)541-198441 [place] [address] 02-22-2024 09:33-0500 Body weight 85.[address] Juan Nesbitt MD Work Phone: 6(222)718-854325 [place] [address] 02-22-2024 09:33-0500 Diastolic blood pressure 79 mm[Hg] Dr. Juan Nesbitt MD Work Phone: 7(927)779-282241 [place] [address] 02-22-2024 09:33-0500 Heart rate 73 /min Dr. Juan Nesbitt MD Work Phone: 6(398)894-245341 [place] [address] 02-22-2024 09:33-0500 Respiratory rate 17 /min Dr. Juan Nesbitt MD Work Phone: 9(131)663-443041 [place] [address] 02-22-2024 09:33-0500 SaO2% (BldA) [Mass fraction] 95 % Dr. Juan Nesbitt MD Work Phone: [facility] 02-22-2024 09:33-0500 Systolic blood pressure 115 mm[Hg] Dr. Juan Nesbitt MD Work Phone: [facility] 06-13-2023 09:25-0400 Body height 175.[address] Juan Nesbitt Work Phone: [facility] 06-13-2023 09:25-0400 Body mass index (BMI) [Ratio] 27.3 kg/m2 Dr. Juan Nesbitt Work Phone: [facility] 06-13-2023 09:25-0400 Body temperature 98.3 [degF] Dr. Juan Nesbitt Work Phone: [facility] 06-13-2023 09:25-0400 Body weight 84.[address] Juan Nesbitt Work Phone: [facility] 06-13-2023 09:25-0400 Diastolic blood pressure 76 mm[Hg] Dr. Juan Nesbitt Work Phone: [facility] 06-13-2023 09:25-0400 Heart rate 88 /min Dr. Juan Nesbitt Work Phone: [facility] 06-13-2023 09:25-0400 Respiratory rate 16 /min Dr. Juan Nesbitt Work Phone: [facility] 06-13-2023 09:25-0400 SaO2% (BldA) [Mass fraction] 96 % Dr. Juan Nesbitt Work Phone: [facility] 06-13-2023 09:25-0400 Systolic blood pressure 126 mm[Hg] Dr. Juan Nesbitt Work Phone: [facility] Encounters Encounter Date Encounter Type Care Provider Facility Start: 05-27-2024 End: 05-27-[address] Juan Nesbitt MD Work Phone: [facility] Work Phone: Start: 05-27-2024 End: 05-27-[address] Juan Nesbitt MD -Laboratory, [place] Work Phone: Start: 05-27-2024 End: 05-27-2024 ambulatory Juan Nesbitt Facility:[facility] Start: 03-31-2024 End: 03-31-[address] Jimenez Waldron MD -[facility] Work Phone: Start: 03-31-2024 End: 03-31-2024 ambulatory Juan Nesbitt [facility] Start: 03-17-2024 End: 03-17-2024 Non-patient / Non-visit Dr. Jimenez Waldron MD -[facility] Start: 03-17-2024 End: 03-17-2024 Admission to same day surgery center Dr. Jimenez Waldron MD -[facility] Start: 03-17-2024 End: 03-17-2024 ambulatory Juan Nesbitt Facility:[facility] Start: 02-22-2024 End: 02-22-[address] Jimenez Waldron MD -[facility] Work Phone: Start: 02-22-2024 End: 02-22-2024 ambulatory Juan Nesbitt [facility] Start: 01-14-2024 End: 01-14-2024 ambulatory Juan Nesbitt Facility:[facility] Start: 11-05-2023 End: 11-05-2023 ambulatory Juan Nesbitt Facility:[facility] Start: 10-23-2023 End: 10-23-2023 ambulatory Jose Eduardo Laz Facility:[facility] Start: 06-15-2023 End: 06-15-[address] Juan Nesbitt Work Phone: [facility] Work Phone: Start: 06-15-2023 End: 06-15-[address] Juan Nesbitt Work Phone: [facility]-Laboratory, [facility] Work Phone: Start: 06-15-2023 End: 06-15-2023 ambulatory Ushadenisse Gonzalez Facility:[facility] Start: 06-13-2023 End: 06-13-[address] Juan Nesbitt Work Phone: [facility] Work Phone: Start: 06-13-2023 End: 06-13-2023 ambulatory Juan Nesbitt Facility:[facility] Start: 05-26-2023 End: 05-26-2023 ambulatory [facility] Work Phone: Start: 05-26-2023 End: 05-26-2023 [facility] Start: 03-19-2023 End: 03-19-2023 ambulatory [facility] Work Phone: Start: 03-19-2023 End: 03-19-2023 Discharged Recurring [facility]-Physical Therapy Work Phone: Start: 02-25-2023 End: 02-25-2023 ambulatory [facility] Work Phone: Start: 02-25-2023 End: 02-25-2023 [facility] Start: 12-01-2022 End: 12-01-[address] Aamir Nesbitt Work Phone: [facility] Work Phone: Start: 12-01-2022 End: 12-01-[address] Aamir Nesbitt Work Phone: [facility]-Laboratory, [facility] Work Phone: Start: 10-30-2022 Non-patient / Non-visit Dr. Aamir Nesbitt Work Phone: [facility] Start: 10-30-2022 End: 10-30-[address] Aamir Nesbitt Work Phone: [facility] Work Phone: Start: 08-09-2021 End: 08-09-2021 [facility] Start: 05-09-2021 End: 05-09-2021 Patient encounter procedure [facility] Start: 04-23-2017 End: 04-28-2017 Ambulatory [facility] Facility:[facility] Procedures Date Procedure Procedure Detail Performing Clinician Start: 06-15-[address] Moose Nesbitt Work Phone: Start: 02-25-2023 X-ray of cervical spine History of repair of inguinal hernia S/P left inguinal hernia repair Dr. Jimenez Waldron MD Plan of Treatment Date Care Activity Detail Author Start: 03-17-2024 Anesthesia intraperi toneal lower abd w/laps nos ANESTH SURG LOWER ABDOMEN [facility] Start: 03-17-2024 Laparoscopy surg rpr initial inguinal hernia LAP ING HERNIA REPAIR INIT [facility] Start: 03-17-2024 Patient discharge [facility] Patient referral [facility] Work Phone: Payers Date Payer Category Payer Self-pay [id number] 2017 Unknown [id number] Unknown [id number] 2.16.8 [id number] Unknown [id number] 2.16.8 [id number] Unknown [id number] 2.16.8 [id number] Unknown [id number] 2.16.8 [id number] Unknown [id number] 2.16.8 [id number] Unknown [id number] 2.16.8 [id number] Unknown [id number] 2.16.8 [id number] Unknown [id number] 2.16.8 [id number] Unknown [id number] 2.16.8 [id number] Unknown [id number] 2.16.8 [id number] Unknown [id number] 2.16.8 [id number] Social History Date Type Detail Facility Start: 11-15-2020 End: 12-16-2021 Tobacco smoking status NHIS Unknown if ever smoked [facility] Start: 1945 Sex Assigned At Male [facility] Start: 03-03-2024 [facility] Start: 06-02-2024 Sex Male (finding) [facility] Medical Equipment Procedure Code Equipment Code Equipment Origin al Text Equipment Identifier Dates Extra-gynaecolog ical surgical mesh, composite-polymer [id number] FDA Start: 03-17-2024 Goals Date Patient Goal Desired Activity /State Mental Status Date Assessment Result Facility 03-17-2024 Cognitive function Voice/Name [facility] Work Phone: Clinical Note 03-17-2024 Note Date & Type Note Facility 03-17-2024 Note [facility] Medical Records Department [address] [place] [address] History Physical Exam 03/17/24 0841 MR#: [id number] Acct: [id number] Name: GEORGEMAO RASHAD Stevens Rep #: [id number] : 1945 78 From: Jimenez Waldron MD PCP: Dr. Juan Nesbitt MD Status:[facility] Location: [place] [address] History and Physical Date of Admission: 03/17/24 Intake Vital Signs 2408:25 02/22/2508:33 Height 5 ft 9 in 5 ft 9 in Weight: 188 lb BMI 27.7 BP 115/79 Blood Pressure Location Rt brachial Position Sitting Respiration 17 Pulse 73 Pulse Source Monitor Pulse Oximetry (%) 95 Oxygen Delivery Method room air Intake Visit Reasons: INGUINAL HERNIA Chief Complaint: inguinal hernia Is patient in pain?: No Allergies codeine Adverse Reaction (Intermediate, Verified 02/22/24 09:33) Itching,eye burning Medications ???Medication ???Instructions ???Recorded ???Confirmed ???Type cholecalciferol (vitamin D3) 50 2,000 unit PO BID 05/28/17 02/22/24 History mcg (2,000 unit) tablet simvastatin 20 mg tablet See Rx Instructions .Route .COMPLEX 05/28/17 02/22/24 History lactobacillus combination no.9 4 4,000 mmu cells PO DAILY 06/14/18 02/22/24 History billion cell capsule (Adult 50 Plus Probiotic) omega-3 fatty acids 1,000 mg 1,000 mg PO DAILY 06/14/18 02/22/24 History capsule (Fish Oil Concentrate) coenzyme Q10 100 mg capsule 400 mg PO DAILY 06/27/19 02/22/24 History multivitamin 1 tab PO QAM 11/15/20 02/22/24 History finasteride 5 mg tablet 5 mg PO QDAY 02/22/24 02/22/24 History omeprazole magnesium 20 mg 20 mg PO QDAY 02/22/24 02/22/24 History tablet,delayed release (Prilosec OTC) tamsulosin 0.4 mg capsule 0.4 mg PO QDAY 02/22/24 02/22/24 History Have you fallen in the past year?: No PFSH Medical History (Updated 02/22/24 @ 09:[address] Jimenez Waldron MD) GERD (gastroesophageal reflux disease) Deviated nasal septum Pure hypercholesterolemia Ectopic cardiac beats Palpitations Encounter for long-term current use of high risk medication Sinoatrial node dysfunction Abnormal electrocardiogram Contraction, premature ventricular Atrial contractions, premature Hyperlipidemia Surgical History (Updated 02/22/24 @ 09:32 by Kailee Rushing) H/O straightening of nasal septum History of vasectomy Family History Father ArthritisMother CAD (coronary artery disease) Diabetes Hypertension HyperlipidemiaBrother CAD (coronary artery disease)Brother DiabetesBrother HyperlipidemiaBrother Hypertension Social History Smoking Status: Former smoker how long ago did patient quit smokin alcohol intake: current alcohol intake frequency: a few times a month substance use type: does not use caffeine: No what type of physical activity do you participate in: other details: [employer] seatbelt use: always do you feel safe at home: Yes HPI HPI HPI: Patient is a 78-year-old male here with left inguinal hernia. He says has been out for a few weeks to a month. He says it fong and is uncomfortable especially when he does any lifting or strenuous activity. He is a very active individual who exercises a lot. ROS General General: No weight change, appetite, fatigue, colon cancer, breast cancer or weakness HEENT HEENT: No difficulty swallowing, eye injury, eye surgery, swollen glands or hoarseness Endo Endocrine: No thyroid disease, diabetes mellitus, thyroid cancer, Hair loss, heat intolerance or cold intolerance Skin Skin: No rash or changing moles Musc Musculoskeletal: Yes arthritis; No back problems, rheumatoid arthritis, gout or joint pain Cardio Cardiovascular: No murmur, pacemaker, heart disease, atrial fibrillation, high blood pressure, heart attack, heart stent, palpitations, shortness of breat with exertion or chest pain Psych Psychiatric: No depression, anxiety or hearing voices Resp Respiratory: No shortness of breath, Yes sleep apnea, No cough, No COPD, No asthma, No emphysema and No wheezing Gastro Gastrointestinal: Yes abdominal pain, No nausea or vomiting, No diarrhea, No constipation, No blood in stool, Yes acid reflux, No hemorrhoids, No ulcers, No gallbladder problem and No black,tarry stools [place] Hematologic: No blood thinners, No blood disorders, No bleeding, No anemia and No blood clots Neuro Neurologic: No system reviewed and no additional complaints, except as documented, No as per HPI, No abnormal gait, No abnormal hearing, No abnormal movements, No abnormal speech, No behavioral changes, No burning sensations, No confusion, No convulsions, No disequilibrium, No dizziness, No localized weakness, No frequent falls, No headache(s), No lack of coordinatio (more content not included)... [facility] Evaluation note 02-22-2024 Note Date & Type Note Facility 02-22-2024 Evaluation note Diagnosis Onset Date Resolution Inguinal hernia acute February 092024 9:11am S/P left inguinal hernia repair acute March 31 025 9:40am [facility] Work Phone: Discharge summary 05-18-2023 Note Date & Type Note Facility 05-18-2023 Discharge summary Note Date/Time May 18, 2023 7:19 pm [facility] Physical Therapy [facility] [address] [place] [address] / REHABILITATION SERVICES DISCHARGE SUMMARY MR#: [id number] Acct: [id number] Name: MAO VAZQUEZ Jr. Rep #: [id number] : 1945 77 From: Lilly Theodore PT, Cert. MDT Referring Dr.: Dr. Juan Nesbitt MD Stat us: REG RCR Insurance: [employer] MEDICARE SELF PAY INSURANCE Patient Information Patient Information: MAO VAZQUEZ Jr. was seen in my office for initial evaluation on 03/06/23. The following Plan of Care was established for this patient: POC Established Initial Frequency: 1-2x /Week Initial Duration: 4-6 Weeks Anticipated Interventions Patient/Client Instruction: Educate patient on: Condition, Plan of Care and Risk Factors For the Purpose of:: To improve self management Therapeutic Exercise to Include: Strength training, Body mechanics, Postural training, Flexibilty training, Neuromotor development and Scapular Strength/Stabilization For the Purpose of:: To decrease pain, To improve muscle performance and motor function, To increase tolerance to activity/condition/position, To improve ability of physical actions for home/community/work/leisure, To decrease soft tissue restriction and To increase flexibility/ROM Thermo therapy (hot pack): Yes Ultrasound (thermal/non thermal): Yes For the Purpose of:: To decrease pain and To improve nutrient delivery to tissue Last Seen Last Seen: This patient was last seen in our office 03/19/23. Pertinent comments regardingtheir Physical therapy will appear below: This patient has not returned to Physical Therapy and is appropriate to return to MD for further follow-up as needed. At this point I will be discontinuing this patient from physical therapy. I would be happy to see this patient again in the future if found appropriate by the physician. Thank you! Lilly Theodore, PT, Cert MDT Balance/Gait/Functional tests Balance/Special Test Scores Quick DASH Score: 18.1800 <Electronically signed by Marisol Cornelius PT. MDT> 05/18/231918 CC: Dr. Juan Nesbitt MD ~ ILEANA Signed [facility] Work Phone: Evaluation note Note Date & Type Note Facility Evaluation note No assessment information availa ble [facility] Work Phone: Evaluation note Note Date & Type Note Facility Evaluation note Diagnosis Onset Date Urinary tract infection none active [facility] Work Phone: Reason for referral (narrative) Note Date & Type Note Facility Reason for referral (narrative) No reason for referral information available [facility] Work Phone: Summary Purpose Family History No Family History Records Found Relationship Condition Age at Onset Recorded Date/T jerardo father Arthritis Unknown mother Coronary artery disease Unknown Diabetes mellitus Unknown Hypertension Unknown Hyperlipidemia Unknown brother Coronary artery disease Unknown brother Diabetes mellitus Unknown brother Hyperlipidemia Unknown brother Hypertension Unknown Advance Directives No Advanced Directives Records Found Advance Directive Response Recorded Date/ Time Living Will Yes March 03 1:58pm Do you have a Healthcare Power of Manager Strategic? Yes March 03, 2024 1:58pm Name of Medical Power of Manager Strategic March 03, 2024 1:58pm Chief Complaint and Reason for Visit Chief Complaint G47.37 CSA Chief Complaint EORDER Chief Complaint EORDER RT ARM PARESHESIAS RX HERE Chief Complaint EORDER RT ARM PARESHESIAS RX HERE Urinary tract infection Reason for Visit Urinary tract infect ion Chief Complaint Admit Date INGUINAL HERNIA February 22, 2024 9 :11am Lap Robotic Inguinal Hernia w/mesh Febru 2024 7:54am PREOP March 17, 2024 8 :19am Lap Robotic Inguinal Hernia w/mesh Febru [id number] 8:41am HERNIA 2-6 March 31, 2024 9:40am EORDERS May 27, 2024 7:0 2am Reason for Visit Admit Date Inguinal hernia February 22, 2024 9 :11am S/P left inguinal hernia repair March 31, 2024 9:40am Additional Source Comments (unrecognized sect ion and content) No Status Records FoundNo Status Records Found INFORMATION SOURCE (unrecogn ized section and content) DATE CREATED AUTHOR 07/31/2017 [facility] ([place]) DATE CREATED AUTHOR AUTHOR'S SWEETIE ATANDRESSA 06/03/2024 [facility] Goals (unrecognized section and content) Goals may be documented in a n alternate sectionGoals may be documented in an alternate sectionGoals may be documented in an alternate sectionGoals may be documented in an alternate sectionGoals may be documented in an alternate sectionGoals may be documented in an alternate sectionGoals may be documented in an alternate section Care Teams (unrecognized sec tion and content) Team Status: Active Member Role Status Dates Dr. Aamir Nesbitt MD Family Provider Active Dr. Aamir Nesbitt MD Primary Care Provider Activ e Team Status: Active Member Role Status Dates Dr. Aamir Nesbitt MD Primary Care Provider Activ e Dr. Tam Dennis MD Attending Provider, Referring Pro vider Active Team Status: Inactive Member Role Status Dates Dr. Aamir Nesbitt MD Primary Care Provider Activ e Dr. Jaspal Sousa MD Attending Provider, Referrin g Provider Active Team Status: Inactive Member Role Status Dates Dr. Aamir Nesbitt MD Primary Care Provider Activ e Dr. Alin Márquez MD Attending Provider Active Team Status: Inactive Member Role Status Dates Dr. Aamir Nesbitt MD Primary Care Provider, Attending Provider, Referring Provider Active Team Status: Active Member Role Status Dates Dr. Juan Nesbitt MD Family Provider Active Dr. Juan Nesbitt MD Primary Care Provider Acti ve Team Status: Inactive Member Role Status Dates Dr. Juan Nesbitt MD Primary Care Provider, Attending Provider, Referring Provider Active Team Status: Inactive Member Role Status Dates Dr. Juan Nesbitt MD Primary Care Provider, Att ending Provider Active Team Status: Inactive Member Role Status Dates Dr. Juan Nesbitt MD Primary Care Provider, Ref erring Provider Active CASSIDY Dawkins Attending Provider Active Team Status: Inactive Member Role Status Dates Dr. Juan Nesbitt MD Primary Care Provider [facility] Attending Provider, Referring Provider Active Team Status: Active Member Role Status Dates Dr. Juan Nesbitt MD Primary Care Provider Acti ve Team Status: Inactive Member Role Status Dates Dr. Juan Nesbitt MD Primary Care Provider Acti ve Start: February 22, 2024 End: February 22, 2024 Dr. Juan Nesbitt MD Referring Provider Active Start: February 22, 2024 End: February 22, 2024 Dr. Jimenez Waldron MD Attending Provider Active Start: February 22, 2024 End: February 22, 2024 Team Status: Inactive Member Role Status Dates Dr. Juan Nesbitt MD Primary Care Provider Acti ve Start: March 17, 2024 End: March 17, 2024 Dr. Jimenez Waldron MD Attending Provider Active Start: March 17, 2024 End: March 17, 2024 Dr. Jimenez Waldron MD Referring Provider Active Start: March 17, 2024 End: March 17, 2024 Team Status: Active Member Role Status Dates Dr. Juan Nesbitt MD Primary Care Provider Acti ve Start: March 17, 2024 End: March 17, 2024 Dr. Tam Dennis MD Attending Provider Active S tart: March 17, 2024 End: March 17, 2024 Dr. Jimenez Waldron MD Referring Provider Active Start: March 17, 2024 End: March 17, 2024 Team Status: Active Member Role Status Dates Dr. Juan Nesbitt MD Primary Care Provider Acti ve Start: March 17, 2024 Dr. Jimenez Waldron MD Attending Provider Active Start: March 17, 2024 Dr. Jimenez Waldron MD Referring Provider Active Start: March 17, 2024 Dr. Jimenez Waldron MD Other Provider Active Start: March 17, 2024 Team Status: Inactive Member Role Status Dates Dr. Juan Nesbitt MD Primary Care Provider Acti ve Start: March 31, 2024 End: March 31, 2024 Dr. Juan Nesbitt MD Referring Provider Active Start: March 31, 2024 End: March 31, 2024 Dr. Jimenez Waldron MD Attending Provider Active Start: March 31, 2024 End: March 31, 2024 Team Status: Inactive Member Role Status Dates Dr. Juan Nesbitt MD Primary Care Provider Acti ve Start: May 27, 2024 End: May 27, 2024 Dr. Juan Nesbitt MD Attending Provider Active Start: May 27, 2024 End: May 27, 2024 Dr. Juan Nesbitt MD Referring Provider Active Start: May 27, 2024 End: May 27, 2024 FOR RECORDS PERTAINING TO PATIENTS WHO ARE OR HAVE BEEN ENROLLED IN A CHEMICAL DEPENDENCY/SUBSTANCEABUSE PROGRAM, SOME INFORMATION MAY BE OMITTED. This clinical summary was aggregated from multiple sources. Caution should be exercised in using it in the provision of clinical care. This summary normalizes information from multiple sources, and as a consequence, information in this document may materially change the coding, format and clinical context of patient data. In addition, data may be omitted in some cases. CLINICAL DECISIONS SHOULD BE BASED ON THE PRIMARY CLINICAL RECORDS. [employer] provides no warranty or guarantee of the accuracy or completeness of information in this document.
== END | disposition home or self-care (01) ==
LOC: MTLAB 10:27
PROVIDERS: PCP Family Medicine; Referring Provider Urology; Visit Provider Urology
DX: R97.20 Elevated prostate specific antigen [PSA] (principal)
CPT/HCPCS: 36415; 84153

== ENCOUNTER 2025-01-09 09:55 | Day surgery (SDC) | payer MEDICARE, SELFPAY ==
[2025-01-02 10:35] LABS: Hematocrit 45.2 % (40-54); Hemoglobin 15.8 g/dL (13.0-16.5); Mean Corp Hgb Conc 35.0 g/dL (32-36); Mean Corpuscular Volume 88.1 fL (80-94); Mean Platelet Vol. 9.6 fl (6.2-12.0); Platelet Count 188 K/mm3 (150-450); RBC Distribution Width CV 12.9 % (11.6-14.6); RBC Distribution Width SD 41.8 fl (35.1-43.9); Red Blood Count 5.13 M/mm3 (4.6-6.2); White Blood Count 4.6 K/mm3 (4.4-11.0)
--- NOTE | 2025-01-03 08:37 | PAT.ANESEVAL ---
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 When Was Last Pacemaker Check QUESTION #4 FULL TEXT: You/Your Family Experience fever (hyperthermia) with Anesthesia Last Oral Intake Last Oral intake: Last Oral Intake NPO since Meds taken in AM with sips of water? Meds patient instructed to take am of surgery PONV PONV - artificial breast fabricator: PONV - artificial breast fabricator Female No 12/29/24 15:57 HX of Motion Sickness No 12/29/24 15:57 HX of N/V After Surgery No 12/29/24 15:57 Non-Smoker Yes 12/29/24 15:57 Duration of Surgery greater Yes 12/29/24 15:57 than 60 minutes Number of Risk Factors 2 12/29/24 15:57 PONV Score Moderate Risk 12/29/24 15:57 Height & Weight Height & Weight: Anesthesia: Height & Weight Height 5 ft 9 in 12/09/24 09:23 Respiratory Assessment Respiratory Assessment - artificial breast fabricator: Respiratory Tract Infection Hx - artificial breast fabricator Hx Respiratory Tract Infection No 12/29/24 15:57 STOP Sleep Apnea STOP Sleep Apnea - artificial breast fabricator: STOP Sleep Apnea - artificial breast fabricator Hx Hypertension No 12/29/24 15:57 Hx Sleep Apnea Yes 12/29/24 15:57 CPAP No 12/29/24 15:57 BIPAP Yes 12/29/24 15:57 Do you snore loudly (louder than talking or can be heard Do you often feel tired/ fatigued/ sleepy during daytime? Has anyone observed you stop breathing during sleep? STOP Results Positive 12/29/24 15:57 QUESTION #5 FULL TEXT : Do you snore loudly (louder than talking or can be heard through closed doors)? 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 Specify any problems Hx of Preganancy in last 3 N/A 12/29/24 15:57 Months Nurse Filling Out Transfusion JZOLLINGE 12/29/24 15:57 & Questions: Date: 12/29/24 12/29/24 15:57 Time: 15:58 12/29/24 15:57 Patient unable to answer at this time (ie. confused, unrespo /Reproduction History /Reproductive History - artificial breast fabricator: /Reproductive Hx- artificial breast fabricator Hx Now No 12/29/24 15:57 Gestational Age (in weeks): EDC: Hx Hx Para Hx Section SAB No 12/29/24 15:57 Does the father of the baby or his family experience fever w Father of the baby Malignant Hypertension history comment [facility] Medical History (Updated 12/29/24 @ 15:53 by Dione Henley) Wears glasses Alcohol use Arthritis Prostate disease High cholesterol History of hiatal hernia Gastric reflux Former smoker BiPAP (biphasic positive airway pressure) dependence Leg cramps History of echocardiogram Cardiology follow-up encounter History of irregular heartbeat History of deviated nasal septum Pure hypercholesterolemia Ectopic cardiac beats Palpitations Encounter for long-term current use of high risk medication Sinoatrial node dysfunction Abnormal electrocardiogram Contraction, premature ventricular Atrial contractions, premature Hyperlipidemia Home Medications Medication Instructions Recorded Last Taken Type cholecalciferol (vitamin D3) 50 2,000 unit PO BID 05/28/17 Unknown History mcg (2,000 unit) tablet simvastatin 20 mg tablet See Rx Instructions .Route .COMPLEX 05/28/17 Unknown History lactobacillus combination no.9 4 4,000 mmu cells PO DAILY 06/14/18 Unknown History billion cell capsule (Adult 50 Plus Probiotic) omega-3 fatty acids 1,000 mg 1,000 mg PO DAILY 06/14/18 03/16/24 History capsule (Fish Oil Concentrate) coenzyme Q10 100 mg capsule 400 mg PO DAILY 06/27/19 Unknown History multivitamin 1 tab PO QAM 11/15/20 Unknown History finasteride 5 mg tablet 5 mg PO QDAY 02/22/24 03/17/24 History omeprazole magnesium 20 mg 20 mg PO QDAY PRN GERD 02/22/24 03/17/24 History tablet,delayed release (Prilosec OTC) tamsulosin 0.4 mg capsule 0.4 mg PO QHS 02/22/24 03/16/24 History trazodone 50 mg tablet 50 mg PO QHS 03/03/24 Unknown History magnesium 200 mg tablet 400 mg PO DAILY 12/29/24 Unknown History turmeric 400 mg capsule 400 mg PO .QD 12/29/24 Unknown History Allergy/AdvReac Type Severity Reaction Status Date / Time codeine AdvReac Intermediate Itching,eye Verified 12/29/24 15:41 burning Family History Father Arthritis Mother CAD (coronary artery disease) Diabetes Hypertension Hyperlipidemia Brother CAD (coronary artery disease) Brother Diabetes Brother Hyperlipidemia Brother Hypertension Surgical History (Updated 03/31/24 @ 09:38 by Kailee Rushing) S/P left inguinal hernia repair Hx of colonoscopy History of vasectomy Social History Smoking Status: Former smoker how long ago did patient quit smokin alcohol intake: current alcohol intake frequency: a few times a month substance use type: does not use caffeine: No what type of physical activity do you participate in: other details: [employer] seatbelt use: always do you feel safe at home: Yes Audit: Pertinent Findings HISTORY of Pertinent Findings History of Pertinent Findings: December 16, 2021 Dr. Dill. 1. Palpitations-this is chronic. At present patient appears to be doing well with no ongoing symptoms or adverse events. 2. Ectopic cardiac beats-this is chronic with ectopy of PACs and PVCs. Doing well at this time. Pertinent Findings EKG Perinent findings: November 17, 2019. Sinus rhythm. Frequent ectopic ventricular beats. Right bundle branch block. Stress test pertinent findings: Nuclear stress test from April 2014 showed right bundle branch block with occasional PVC pretest, during exercise, and recovery. Nuclear images were negative for stress-induced myocardial ischemia or previous myocardial injury/infarction. Ejection fraction was reported at 58% Echo (EF%) pertinent findings: October 30, 2022. Ejection fraction 55%. Pulmonary artery systolic pressure is 24 mmHg. No aortic stenosis noted. Additional pertinent findings: Holter monitor from May 2015 showed a sinus rhythm with a bundle branch block with periods of sinus arrhythmia. Minimum heart rate of 50 bpm. Recommendation Anesthesia Recommendation Anesthesia recommendation: OPTIMIZED for anesthesia (EKG on DOS )
[2025-01-09] VITALS (10 sets, daily range): BP systolic 118–152; BP diastolic 85–102; PULSE 63–76; RESP 16; TEMP 36.1–36.7; O2SAT 93–99; BMI 26.9
[2025-01-09] MEDS: Lactated Ringers 1,000 ML 15 ML IV (10:51)
--- NOTE | 2025-01-09 11:03 | PRE.ANES_ITS ---
ASA Classification* ASA Classification ASA Classification: 2 Assessment & Plan Anesthesia* Anesthesia Assessment Anesthesia Assessment: Discussed sedation and/or anesthesia options, risks, benefits, and alternatives with patient/parents/legal guardian/POA. Questions invited. The patient/parents/legal guardian/POA seems to understand and agrees to proceed with anesthesia plan. Reviewed the physical assessment, medical history, allergy history and patient home medications list prior to surgery/procedure/anesthetic and documented any changes. Performed airway and anesthesia risk assessments. Anesthesia Type Anesthesia Type: General History Source History Obtained from:: Patient and Chart Anesthesia Focused Assessment* Temperature: 97.4 F Pulse Rate: 63 Blood Pressure: 118/98 Respiratory Rate: 16 Pulse Ox: 99 Oxygen Delivery Method: Room Air Airway Assessment Mouth opens: >3 cm Mallampati Score: II Teeth Condition: Intact Neck Range of motion (ROM): Full ROM Labs Anesthesia Preop lab: CBC WBC, (4.4-11.0) 4.6 K/mm3 01/02/25, 09:20 RBC, (4.6-6.2) 5.13 M/mm3 01/02/25, 09:20 Hgb, (13.0-16.5) 15.8 g/dL 01/02/25, 09:20 Hct, (40-54) 45.2 % 01/02/25, 09:20 Plt Count, (150-450) 188 K/mm3 01/02/25, 09:20 CHEMISTRY Potassium, (3.3-5.1) 4.0 mmol/L 05/27/24, 07:06 Sodium, (133-145) 139 mmol/L 05/27/24, 07:06 Magnesium, (1.8-2.4) 2.0 mg/dL 04/27/14, 12:13 BUN, (4-19) 16 mg/dL 05/27/24, 07:06 Creatinine, (0.70-1.20) 1.09 mg/dL 05/27/24, 07:06 Glucose, (70-99) 86 mg/dL 05/27/24, 07:06 TSH, (0.358-3.74) 0.72 uIU/mL 05/09/20, 08:02 COAG Pre-Assessment Diagnosis/Proposed Procedure Planned Operative Procedure(s): (R) Lap Robotic Inguinal Hernia w/mesh Anesthesia History 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 When Was Last Pacemaker Check QUESTION #4 FULL TEXT: You/Your Family Experience fever (hyperthermia) with Anesthesia Last Oral Intake Last Oral intake: Last Oral Intake NPO since 19:00 01/09/25 10:28 Meds taken in AM with sips of Yes 01/09/25 10:28 water? 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 Female No 12/29/24 15:57 HX of Motion Sickness No 12/29/24 15:57 HX of N/V After Surgery No 12/29/24 15:57 Non-Smoker Yes 12/29/24 15:57 Duration of Surgery greater Yes 12/29/24 15:57 than 60 minutes Number of Risk Factors 2 12/29/24 15:57 PONV Score Moderate Risk 12/29/24 15:57 Height & Weight Height & Weight: Anesthesia: Height & Weight Height 5 ft 9 in 01/09/25 10:28 Weight: 82.8 kg 01/09/25 10:28 Body Mass Index (BMI) 26.9 01/09/25 10:28 Respiratory Assessment Respiratory Assessment - sales solutions representative: Respiratory Tract Infection Hx - sales solutions representative Hx Respiratory Tract Infection No 12/29/24 15:57 STOP Sleep Apnea STOP Sleep Apnea - sales solutions representative: STOP Sleep Apnea - sales solutions representative Hx Hypertension No 12/29/24 15:57 Hx Sleep Apnea Yes 12/29/24 15:57 CPAP No 12/29/24 15:57 BIPAP Yes 12/29/24 15:57 Do you snore loudly (louder than talking or can be heard Do you often feel tired/ fatigued/ sleepy during daytime? Has anyone observed you stop breathing during sleep? STOP Results Positive 12/29/24 15:57 QUESTION #5 FULL TEXT : Do you snore loudly (louder than talking or can be heard through closed doors)? 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 Specify any problems Hx of Preganancy in last 3 N/A 12/29/24 15:57 Months Nurse Filling Out Transfusion JZOLLINGE 12/29/24 15:57 & Questions: Date: 12/29/24 12/29/24 15:57 Time: 15:58 12/29/24 15:57 Patient unable to answer at this time (ie. confused, unrespo /Reproduction History /Reproductive History - sales solutions representative: /Reproductive Hx- sales solutions representative Hx Now No 12/29/24 15:57 Gestational Age (in weeks): EDC: Hx Hx Para Hx Section SAB No 12/29/24 15:57 Does the father of the baby or his family experience fever w Father of the baby Malignant Hypertension history comment Active Medications Active Medications: Current Medications Generic Name Dose Route Start Last Admin Trade Name Freq PRN Reason Stop Dose Admin Lactated Ringer's 1,000 mls @ 15 mls/hr 01/09/25 10:15 01/09/25 10:51 IV 15 mls/hr .Q48H SARA Administration PFSH Medical History Wears glasses Alcohol use Arthritis Prostate disease High cholesterol History of hiatal hernia Gastric reflux Former smoker BiPAP (biphasic positive airway pressure) dependence Leg cramps History of echocardiogram Cardiology follow-up encounter History of irregular heartbeat History of deviated nasal septum Pure hypercholesterolemia Ectopic cardiac beats Palpitations Encounter for long-term current use of high risk medication Sinoatrial node dysfunction Abnormal electrocardiogram Contraction, premature ventricular Atrial contractions, premature Hyperlipidemia Home Medications Medication Instructions Recorded Last Taken Type cholecalciferol (vitamin D3) 50 2,000 unit PO BID 05/10 10/27 Unknown History mcg (2,000 unit) tablet simvastatin 20 mg tablet See Rx Instructions .Route . COMPLEX 05/28/17 Unknown History lactobacillus combination no.9 4 4,000 mmu cells PO DA VY 06/14/18 Unknown History billion cell capsule (Adult 50 Plus Probiotic) omega-3 fatty acids 1,000 mg 1,000 mg PO DAILY 9 03/16/24 History capsule (Fish Oil Concentrate) coenzyme Q10 100 mg capsule 400 mg PO DAILY 06/27/19 U nknown History multivitamin 1 tab PO QAM 11/15/20 Unknow n History finasteride 5 mg tablet 5 mg PO QDAY 02/22/24 07:20 History omeprazole magnesium 20 mg 20 mg PO QDAY PRN GERD 02/0901/09/25 07:20 History tablet,delayed release (Prilosec OTC) tamsulosin 0.4 mg capsule 0.4 mg PO QHS 02/22/2403/16 History trazodone 50 mg tablet 50 mg PO QHS 03/03/24 Unknow n History magnesium 200 mg tablet 400 mg PO DAILY 12/29/24 Unk nown History turmeric 400 mg capsule 400 mg PO .QD 12/29/24 Unkno wn History Allergy/AdvReac Type Severity Reaction Status Date / Time codeine AdvReac Intermediate Itching,eye Verified 01/09/25 10:25 burning Family History Father Arthritis Mother CAD (coronary artery disease) Diabetes Hypertension Hyperlipidemia Brother CAD (coronary artery disease) Brother Diabetes Brother Hyperlipidemia Brother Hypertension Surgical History S/P left inguinal hernia repair Hx of colonoscopy History of vasectomy Social History Smoking Status: Former smoker how long ago did patient quit smokin alcohol intake: current alcohol intake frequency: a few times a month substance use type: does not use caffeine: No what type of physical activity do you participate in: other details: [employer] seatbelt use: always do you feel safe at home: Yes Review of Systems (Anesthesia) ROS Narrative System reviewed and no additional complaints, except as documented.
--- NOTE | 2025-01-09 11:32 | PCM.HP.BLA ---
History and Physical Date of Admission: 01/09/25 Intake Vital Signs 03/17/2507:29 12/09/2508:23 Height 5 ft 9 in 5 ft 9 in Weight: 184 lb BMI 27.1 BP 125/82 H Blood Pressure Location Rt brachial Position Sitting Respiration 17 Pulse 80 Pulse Source Monitor Pulse Oximetry (%) 97 Oxygen Delivery Method room air Intake Visit Reasons: POSSIBLE INGUINAL HERNIA Chief Complaint: inguinal hernia right Is patient in pain?: No Allergies codeine Adverse Reaction (Intermediate, Verified 12/09/24 09:24) Itching,eye burning Medications Medication Instructions Recorded Confirmed Type cholecalciferol (vitamin D3) 50 2,000 unit PO BID 05/28/17 12/09/24 History mcg (2,000 unit) tablet simvastatin 20 mg tablet See Rx Instructions .Route .COMPLEX 05/28/17 12/09/24 History lactobacillus combination no.9 4 4,000 mmu cells PO DAILY 06/14/18 12/09/24 History billion cell capsule (Adult 50 Plus Probiotic) omega-3 fatty acids 1,000 mg 1,000 mg PO DAILY 06/14/18 12/09/24 History capsule (Fish Oil Concentrate) coenzyme Q10 100 mg capsule 400 mg PO DAILY 06/27/19 12/09/24 History multivitamin 1 tab PO QAM 11/15/20 12/09/24 History finasteride 5 mg tablet 5 mg PO QDAY 02/22/24 12/09/24 History omeprazole magnesium 20 mg 20 mg PO QDAY PRN GERD 02/22/24 12/09/24 History tablet,delayed release (Prilosec OTC) tamsulosin 0.4 mg capsule 0.4 mg PO QHS 02/22/24 12/09/24 History trazodone 50 mg tablet 50 mg PO QHS 03/03/24 12/09/24 History Have you fallen in the past year?: No PFSH Medical History (Updated 12/09/24 @ 09:22 by Kailee Rushing) Wears glasses Alcohol use Arthritis Prostate disease High cholesterol History of hiatal hernia Gastric reflux Former smoker BiPAP (biphasic positive airway pressure) dependence Leg cramps History of echocardiogram Cardiology follow-up encounter History of irregular heartbeat History of deviated nasal septum Pure hypercholesterolemia Ectopic cardiac beats Palpitations Encounter for long-term current use of high risk medication Sinoatrial node dysfunction Abnormal electrocardiogram Contraction, premature ventricular Atrial contractions, premature Hyperlipidemia Surgical History (Updated 03/31/24 @ 09:38 by Kailee Rushing) S/P left inguinal hernia repair Hx of colonoscopy History of vasectomy Family History Father Arthritis Mother CAD (coronary artery disease) Diabetes Hypertension Hyperlipidemia Brother CAD (coronary artery disease) Brother Diabetes Brother Hyperlipidemia Brother Hypertension Social History Smoking Status: Former smoker how long ago did patient quit smokin alcohol intake: current alcohol intake frequency: a few times a month substance use type: does not use caffeine: No what type of physical activity do you participate in: other details: [employer] seatbelt use: always do you feel safe at home: Yes HPI HPI HPI: Patient is a 79-year-old male with a right inguinal hernia. The patient is known to me as I fixed his left inguinal hernia earlier this year. Patient notes that this happened about a week ago. He says it is painful. He does not have any complaints on the left side. ROS General General: No weight change, appetite, fatigue, colon cancer, breast cancer or weakness HEENT HEENT: No difficulty swallowing, eye injury, eye surgery, swollen glands or hoarseness Endo Endocrine: No thyroid disease, diabetes mellitus, thyroid cancer, Hair loss, heat intolerance or cold intolerance Skin Skin: No rash or changing moles Musc Musculoskeletal: Yes arthritis; No back problems, rheumatoid arthritis, gout or joint pain Cardio Cardiovascular: No murmur, pacemaker, heart disease, atrial fibrillation, high blood pressure, heart attack, heart stent, palpitations, shortness of breath with exertion or chest pain Psych Psychiatric: No depression, anxiety or hearing voices Resp Respiratory: No shortness of breath, Yes sleep apnea, No cough, No COPD, No asthma, No emphysema and No wheezing Gastro Gastrointestinal: Yes abdominal pain, No nausea or vomiting, No diarrhea, No constipation, No blood in stool, Yes acid reflux, No hemorrhoids, No ulcers, No gallbladder problem and No black,tarry stools [place] Hematologic: No blood thinners, No blood disorders, No bleeding, No anemia and No blood clots Neuro Neurologic: No system reviewed and no additional complaints, except as documented, No as per HPI, No abnormal gait, No abnormal hearing, No abnormal movements, No abnormal speech, No behavioral changes, No burning sensations, No confusion, No convulsions, No disequilibrium, No dizziness, No localized weakness, No frequent falls, No headache(s), No lack of coordination, No loss of vision, No memory loss, Yes numbness, No other visual disturbances, No radicular pain, No restless legs, No sensory deficit, No syncope, Yes tingling, No tremor(s), No weakness and No other Exam Const General: cooperative Orientation: alert and oriented x3 [facility] Head: normal to inspection Neck Neck: normal visual inspection and full ROM Chest Chest palpation & inspection: normal inspection of the chest Resp Effort & Inspection: normal respiratory effort Auscultation: clear to auscultation bilaterally Cardio Rate: regular rate Rhythm: regular rhythm GI Inspection: non-distended Palpation: soft, hernia indirect inguinal on the right and nontender Skin General: no rashes or lesions noted Neuro General: patient alert and patient oriented x3 Extrem General: full ROM Psych Appearance: grossly normal Mental Status: mental status grossly normal Assessment and Plan Assessment and Plan (1) Right inguinal hernia: Status: Acute Plan: The patient has a history of left inguinal hernia repair and now has a right inguinal hernia. I discussed robotic assisted laparoscopic right inguinal hernia repair with mesh. I discussed the procedure as well as the risks including but not limited to bleeding, infection, injury other organ such as the bowel, bladder, blood supply to the testicle. Patient understands the risks and is willing to proceed. Jimenez Waldron MD Pager: [facility] [address] [place] [address], [address] [place] [address] Office: I have examined the patient and the H&P has been reviewed. There are no clinical changes since date of exam.
[2025-01-09] MEDS: Cefazolin 1 GM/5 ML Vial 2 GM IV (12:20)
[2025-01-09] MEDS: Lidocaine 1% (5 ml sdv) 5 ML Vial 10 ML IV (12:24)
[2025-01-09] MEDS: fentaNYL 100 MCG/2 ML Ampul 200 MCG IV (13:01)
--- NOTE | 2025-01-09 13:12 | PCM.OPRPT ---
Operative Report (Standard) Operative Information Date of Procedure: 01/09/25 Pre-Operative Diagnosis: Right inguinal hernia Post-Operative Diagnosis: Right inguinal hernia Surgery/Procedure Performed: Robotic assisted laparoscopic right inguinal hernia repair with mesh medical director/head team physician: Yes Weight Recorder: Fazal Edmond Tasks completed by assistant production manager: Opening & closing Type of Anesthesia: General/Regional RN Documented Start/Stop Times: Operation Date: 01/09/25 12:15 Case Time Into Pre-Op 01/09/25 10:09 Out of Pre-Op 01/09/25 12:14 Anesthesia Start 01/09/25 12:18 Into Room 01/09/25 12:18 Procedure Start 01/09/25 12:33 Procedure Start Time: : Procedure Stop Time: 13:20 Select all DRAINS/GRAFTS/IMPLANTS that apply: Implanted device Implanted device details: ProGrip mesh in the right inguinal region Estimated Blood Loss: 10 Specimen collected: No Description of surgery: Patient was brought back to surgery and general anesthesia was induced. The abdomen was prepped and draped in usual sterile fashion. A midline incision was made over his previous midline incision and a Veress needle was placed into the abdomen. A drop test was performed. The abdomen was insufflated to 15 mmHg. The Veress needle was removed and a port was placed. The abdomen was inspected for injuries from entry and there were none. The patient was placed in steep Trendelenburg position. Under direct visualization an 8 mm port was placed in the right lateral abdomen as well as the left lateral abdomen and then the robot was docked. Using electrocautery scissors the right inguinal peritoneum was incised. The dissection was carried inferiorly until the hernia sac was encountered. The hernia sac was dissected free and reduced. After adequate dissection a piece of ProGrip mesh was placed in the right inguinal region and unfolded over the defect completely covering the defect with good coverage. Next the peritoneum was reapproximated using a running 3 oh V-Loc suture completely covering the mesh. Next the robot was undocked and the instruments and the ports were removed. The abdomen was allowed to desufflate. The incisions were injected with local anesthetic and closed with interrupted 4-0 Monocryl sutures. Steri-Strips and bandages were applied. Scrotum was checked at the end the case contained both testicles. Patient was brought to PACU in stable condition and tolerated the procedure well. Surgical Findings: Indirect right inguinal hernia Complications Complications: No Admit VTE Documentation VTE Mechan Device Prophylaxis: SCD's
--- NOTE | 2025-01-09 13:19 | EX.PCM.DISCH ---
Discharge Instructions Procedure Hernia Diet Discharge Diet: Light diet - advance as tolerated Activity Discharge Activity: May Not Drive (for 2-3 days or while taking narcotic pain meds.) and May Shower (with the bandage in place 1-2 days after surgery.) Lifting Restrictions: 20 pounds for 6 weeks. Additional Activity Instructions:: Climbing stairs is fine, walking is encouraged. Sitting in bed may be uncomfortable. Sitting up using your lateral muscles (sitting up sideways) is usually more comfortable. Do not drive, work heavy equipment of sign legal documents for 24 hours. If your hernia repair was an ingunial repair, you may have scrotal swelling, an ice pack and/or athletic support can provide more comfort. Pain medications may cause nausea, you should typically eat light foods as you take your pain medications. Pain medications may also cause constipation. If you have difficulty with this, discuss with your doctor. Dressing / Incision Call your doctor if your incision/area has: Continuous Slow Oozing, Sudden Increased Bleeding, Increased Pain/ Swelling, Increased Redness and Foul Smelling Discharge Call your doctor if you observe: Fever of 101 or Higher Suture Line Care: Avoid Pulling/Pushing and Avoid Pinching/Bending Remove Dressing in: 2 days (Remove clear bandages in 2 days, remove Steri-Strips in 7 to 10 days.) Follow Up Care Please Follow Up With: Jimenez Waldron MD When: Please call to schedule 2 week follow up appointment. [phone] Test Results: Test results from this visit will be discussed in further detail at your follow-up appointment, if applicable. Discharge Plan Admission Attending Provider: Jimenez Waldron Primary Care Provider: Juan Nesbitt Consulting Providers: Nabor Polo Instructions Print Language: Georgian Discharge Orders/Prescriptions Prescriptions: New oxycodone 5 mg Tablet 5 - 10 mg PO Q4H PRN PRN (Reason: Pain Score 4-10) 5 Days Qty: 10 0RF No Action simvastatin 20 mg tablet See Rx Instructions .ROUTE .COMPLEX Patient Comments: 1 tablet PO on even days & 2 Tabs PO on odd days Rx Instructions: 1 tablet PO on even days & 2 Tabs PO on odd days cholecalciferol (vitamin D3) 2,000 unit tablet 2,000 unit PO BID coenzyme Q10 100 mg capsule 400 mg PO DAILY omega-3 fatty acids [Fish Oil Concentrate] 1,000 mg capsule 1,000 mg PO DAILY Adult 50 Plus Probiotic 4 billion cell capsule 4,000 mmu cells PO DAILY multivitamin Tablet 1 tab PO QAM finasteride 5 mg tablet 5 mg PO QDAY tamsulosin 0.4 mg capsule 0.4 mg PO QHS omeprazole magnesium [Prilosec OTC] 20 mg tablet,delayed release (DR/EC) 20 mg PO QDAY PRN (Reason: GERD) trazodone 50 mg tablet 50 mg PO QHS magnesium 200 mg tablet 400 mg PO DAILY turmeric 400 mg capsule 400 mg PO .QD Other Ambulatory Orders: 12 Lead EKG (Routine) Timeframe: 20250106 Facility: [facility] - Location: Cardiovascular Services Ordered By: Dr. Nabor Polo Referrals / Follow Up: Juan eNsbitt MD [Primary Care Provider, Family Practice] Disposition Disposition (needs filled in before D/C Order can be placed): Home, Self Care
--- NOTE | 2025-01-09 13:34 | PCM.POST.ANE ---
Anesthesia: Postop Eval I Current Vital Signs Temperature: 97 F Pulse Rate: 72 Blood Pressure: 152/95 Respiratory Rate: 16 Pulse Ox: 96 Oxygen Delivery Method: Room Air Assessment Airway patent: Yes Spontaneous unlabored respirations: Yes Mental status: Awake and Calm nausea: No Vomiting: No Anesthesia Complication: No Fluid Hydration Crystalloid volume administer (ml): 900 Total IV fluid infused: 900 Progress Note Anesthesia document: Postop Eval 1 completed: Yes
--- NOTE | 2025-01-09 14:30 | POSTOPAN2_ITS ---
Anesthesia Postop Eval I Sum Postop Eval Completion status Anesthesia document: Postop Eval 1 completed: Yes Anesthesia Postop Eval I Summary Anesthesia Postop Eval I Summary: Anesthesia Postop Eval I: Assessment Summary Airway patent Yes 01/09/25 13:34 ICE SELLER.SKOBY Spontaneous unlabored Yes 01/09/25 13:34 ICE SELLER.CHRISTINA respirations Mental status Awake,Calm 01/09/25 13:34 ICE SELLER.SKOBY nausea No 01/09/25 13:34 ICE SELLER.SKOBY Vomiting No 01/09/25 13:34 ICE SELLER.RASHEEDAOBBeronica Anesthesia Postop Eval I: Fluid Summary Crystalloid volume administer 900 01/09/25 13:34 ICE SELLER.SKOBY (ml) Colloids volume administered ( ml) Blood Product volume administered (ml) Total IV fluid infused 900 01/09/25 13:34 ICE SELLER.RASHEEDAOBBeronica Anesthesia Postop Eval I: Summary Notes Anesthesia Complication No 01/09/25 13:34 ICE SELLER.CHRISTINA Anesthesia Complication Comment: Post-operative progress note Anesthesia: Postop Eval II Evaluation Mental status: Awake and Calm Pain Level: 1 nausea: No Vomiting: No Complications Anesthesia Complication: No
--- NOTE | 2025-01-09 14:30 | PCM.POSTANE2 ---
Anesthesia Postop Eval I Sum Postop Eval Completion status Anesthesia document: Postop Eval 1 completed: Yes Anesthesia Postop Eval I Summary Anesthesia Postop Eval I Summary: Anesthesia Postop Eval I: Assessment Summary Airway patent Yes 01/09/25 13:34 REWORK OPERATOR.[email or web address] Spontaneous unlabored Yes 01/09/25 13:34 REWORK OPERATOR.CHRISTINA respirations Mental status Awake,Calm 01/09/25 13:34 REWORK OPERATOR.SKOBY nausea No 01/09/25 13:34 REWORK OPERATOR.SKOBY Vomiting No 01/09/25 13:34 REWORK OPERATOR.RASHEEDAOBBeronica Anesthesia Postop Eval I: Fluid Summary Crystalloid volume administer 900 01/09/25 13:34 REWORK OPERATOR.SKOBY (ml) Colloids volume administered ( ml) Blood Product volume administered (ml) Total IV fluid infused 900 01/09/25 13:34 REWORK OPERATOR.RASHEEDAOBBeronica Anesthesia Postop Eval I: Summary Notes Anesthesia Complication No 01/09/25 13:34 REWORK OPERATOR.CHRISTINA Anesthesia Complication Comment: Post-operative progress note Anesthesia: Postop Eval II Evaluation Mental status: Awake and Calm Pain Level: 1 nausea: No Vomiting: No Complications Anesthesia Complication: No
== END 2025-01-09 16:04 | disposition home or self-care (01) ==
LOC: SDC 09:56 → AC 09:57
PROVIDERS: Anesthesiology; PCP Family Medicine; Referring Provider Surgery; Visit Provider Surgery
PROC: (CPT 49650; principal; 2025-01-09 11:55)
DX: K40.90 Unilateral inguinal hernia, without obstruction or gangrene, not specified as recurrent (principal); E78.00 Pure hypercholesterolemia, unspecified; Z87.891 Personal history of nicotine dependence; K21.9 Gastro-esophageal reflux disease without esophagitis
CPT/HCPCS: 49650; S2900; 00840; 36415; 85027; C1781; J2405